=== PATIENT | male | born 1975 | race Caucasian/White ===

== ENCOUNTER → 2019-01-08 15:08 | Outpatient (CLI) | payer OTHER, SELFPAY ==
[2019-01-08 16:00] LABS: Basophils # 0.1 K/mm3 (0-0.2); Basophils % 0.7 % (0.1-2.0); Eosinophils # 0.2 K/mm3 (0.0-0.4); Eosinophils % 2.3 % (0.1-12.0); Hematocrit 46.1 % (42.0-52.0); Hemoglobin 16.5 g/dL (14.1-18.0); Lymphocytes # 2.7 K/mm3 (0.7-4.5); Lymphocytes % 30.6 % (10-50); Mean Corpuscular HGB Conc 35.8 g/dL (31.8-35.4); Mean Corpuscular Hemoglobin 30.5 pg (27.0-31.2); Mean Corpuscular Volume 85.2 fl (80-94); Mean Platelet Volume 8.6 fl (7.4-10.4); Monocytes # 0.5 K/mm3 (0.1-1.0); Monocytes % 5.1 % (1.7-9.3); Neutrophils # 5.4 K/mm3 (1.8-7.8); Neutrophils % 61.3 % (37.0-80.0); Platelet Count 221 K/mm3 (142-424); Red Blood Count 5.41 M/mm3 (4.60-6.20); Red Cell Distribution Width 12.5 % (11.5-17.5); White Blood Count 8.9 K/mm3 (4.8-10.8)
[2019-01-08 17:29] LABS: Alanine Aminotransferase 21 U/L (12-78); Albumin/Globulin Ratio 1.1 (1.1-1.8); Alkaline Phosphatase 100 U/L (46-116); Anion Gap 15.3 mEq/L (5-15); Aspartate Amino Transferase 15 U/L (15-37); Bilirubin,Total 0.4 mg/dL (0.2-1.0); Blood Urea Nitrogen 9 mg/dL (7-18); Carbon Dioxide 26 mmol/L (21.0-32.0); Chloride 103 mmol/L (98-107); Chol/HDL Ratio 4.9 (1-3.5); Cholesterol 151 mg/dL (140-200); Creatinine,Serum 0.64 mg/dL (0.70-1.30); Estimated Glomerular Filt Rate 137 ml/min (>60); Free T4 (Free Thyroxine) 1.07 ng/dl (0.76-1.46); GFR (African American) 166 ML/MIN (>60); Globulin 3.6 gm/dl (1.3-3.2); Glucose 129 mg/dL (74-106); HDL Cholesterol 31 mg/dL (27-67); LDL Cholesterol 102 mg/dL (0-130); Potassium 4.3 mmoL/L (3.5-5.1); Sodium 140 mmol/L (136-145); Thyroid Stimulating Hormone 1.64 uIU/ml (0.358-3.740); Total Protein,Serum 7.6 gm/dL (6.4-8.2); Triglycerides 90 mg/dL (30-200); VLDL Cholesterol 18 mg/dL (0-40)
[2019-01-08 17:41] LABS: Hemoglobin A1C 7.8 % (0.0-7.0)
== END ==
PROVIDERS: Visit Provider Emergency Medicine
DX: T58.91XA Toxic effect of carbon monoxide from unspecified source, accidental (unintentional), initial encounter (principal)
CPT/HCPCS: 80053; 80061; 83036; 84439; 84443; 85025

== ENCOUNTER 2022-11-29 22:18 | Emergency (ER) | payer MEDICAID, SELFPAY ==
[2022-11-29 22:26] VITALS: BP 159/102; PULSE 110; RESP 16; TEMP 36.9; O2SAT 97; BMI 30.9
[2022-11-29 22:30] VITALS: BP 156/91; PULSE 95; O2SAT 97
--- NOTE | 2022-11-29 22:32 | ECG_ITS ---
APPROVED REPORT Exam: Resting ECG HR:92 bpm ECG Measurements Heart Rate 92 AXES ME 128 P 70 QRSd 95 QRS 62 QT 346 T 72 QTc 396 Conclusion SINUS RHYTHM NORMAL ECG UNCONFIRMED REPORT Electronically signed by : Dusty Gómez MD 11/30/2022 20:29:30
--- NOTE | 2022-11-29 22:40 | XR_ITS ---
PROCEDURE INFORMATION: Exam: XR Chest Exam date and time: 11/29/2022 10:45 PM Age: 47 years old Clinical indication: Cough TECHNIQUE: Imaging protocol: Radiologic exam of the chest. Views: 2 views. Total images: 2 COMPARISON: No relevant prior studies available. FINDINGS: Lungs: Unremarkable. No consolidation. No pulmonary vascular congestion or edema. Pleural spaces: Unremarkable. No pleural effusion. No pneumothorax. Heart/Mediastinum: Unremarkable. No cardiomegaly. No mediastinal widening or hilar enlargement. Bones/joints: Unremarkable. IMPRESSION: No radiographically acute cardiopulmonary process.
--- NOTE | 2022-11-29 22:40 | HMH.EDURI ---
Discharge Plan Disposition Patient Disposition: Home, Self-Care Prescriptions Prescriptions: New metformin 500 mg tablet 500 mg PO BID Qty: 60 0RF Referrals Follow up/Referrals: Gail Stark PA [Primary Care Provider] - See instructions Clinical Impressions Clinical Impression: Diabetes mellitus, Tobacco use, Cough syncope Instructions Patient Instructions: DI for Diabetes Type 2 Discharge ED Provider: Jessica (ED)Ari URI/Sore Throat HPI General Chief Complaint: Upper Respiratory Infection Stated Complaint: cough, passing out last tuesday Time Seen by Provider: 11/29/22 22:40 Mode of Arrival: Ambulatory Source of Information: Patient Limitations: No Limitations Description of Symptoms (Recalled from ER Triage Doc. by RN): pt c/o a productive cough with white sputum >1year. pt states 11/26 he was coughing so hard he blacked out. pt denies SOA. History of Present Illness HPI Narrative: has episodes of cough and vomiting assoc with syncopal episodes - no chest pain - has hx of tob use and diabetes Onset (ago): week(s) Duration: intermittent Severity: moderate Able to tolerate fluids by mouth: Yes Associated symptoms: fever Treatments prior to arrival: none Related Data Previous Rx's Medication Instructions Recorded metformin 500 mg tablet 500 mg PO BID #60 tabs 11/29/22 Allergies Allergy/AdvReac Type Severity Reaction Status Date / Time bee pollen Allergy Verified 11/29/22 22:50 [facility] Disclaimer: The information contained in this section may have been updated after the patient was seen, as this information can be updated by other users. Social History Smoking Status: Current every day smoker tobacco type: cigarettes packs per day: 1 alcohol intake: never current occupational status: employed Travel in the last 8 weeks: None household members: none ROS Obtained: Yes All systems reviewed & no additional complaints except as documented Physical Exam General General appearance: alert Head Head exam: normocephalic Eye Eye exam: Present PERRL and EOMI ENT ENT exam: Present mucous membranes moist Neck Neck exam: Present trachea midline Respiratory Respiratory exam: Present normal lung sounds bilaterally; Absent respiratory distress Cardiovascular Cardiovascular exam: Present regular rate and systolic murmur Abdominal Exam Abdominal exam: Present soft Extremities Exam Extremities exam: Present full ROM Neurological Exam Neurological exam: Present alert, oriented X3 and CN II-XII intact; Absent motor sensory deficit Psychiatric Psychiatric exam: Present normal affect Skin Skin exam: Absent rash Medical Decision Making Medical Records Medical records reviewed: Yes I reviewed the patient's medical records. Maynor Inquiry Pt receiving controlled substance: No Vital Signs: 11/29/22 22:26 11/29/22 22:44 11/29/22 22:30 Temperature 98.5 F Temperature Source Oral Pulse Rate 95 H Pulse Rate [Left] 110 H Pulse Rate [Orthostatic Lying] 92 H Pulse Rate [Orthostatic Sitting] 95 H Pulse Rate [Orthostatic Standing] 109 H Respiratory Rate 16 Blood Pressure 156/91 H Blood Pressure [Orthostatic Lying] 146/81 H Blood Pressure [Orthostatic Sitting] 148/82 H Blood Pressure [Orthostatic Standing] 137/89 Blood Pressure [Right Arm] 159/102 H Blood Pressure Mean [Right Arm] 121 Blood Pressure Source [Right Arm] Automatic Cuff Blood Pressure Position [Right Arm] Sitting 02 Sat by Pulse Oximetry 97 97 Oxygen Delivery Method Room Air 11/29/22 23:00 11/29/22 23:48 11/29/22 23:48 Temperature 98.2 F Temperature Source Pulse Rate 93 H 85 Pulse Rate [Left] Pulse Rate [Orthostatic Lying] Pulse Rate [Orthostatic Sitting] Pulse Rate [Orthostatic Standing] Respiratory Rate 19 Blood Pressure 141/82 H 158/84 H Blood Pressure [Orthostatic Lying] Blood Pressure [Orthostatic Sitting] Blood Pressure [Orth
[2022-11-29 22:44] VITALS: BP 137/89; BP 146/81; BP 148/82; PULSE 109; PULSE 92; PULSE 95
[2022-11-29 22:45] LABS: Basophils # 0.2 K/mm3 (0-0.2); Basophils % 1.5 % (0.1-2.0); Eosinophils # 0.4 K/mm3 (0.0-0.4); Eosinophils % 3.7 % (0.1-12.0); Hematocrit 48.8 % (42.0-52.0); Hemoglobin 16.6 g/dL (14.1-18.0); Lymphocytes # 3.3 K/mm3 (0.7-4.5); Mean Corpuscular HGB Conc 34.1 g/dL (31.8-35.4); Mean Corpuscular Hemoglobin 30.3 pg (27.0-31.2); Mean Corpuscular Volume 88.9 fl (80-94); Mean Platelet Volume 9.1 fl (7.4-10.4); Monocytes # 0.5 K/mm3 (0.1-1.0); Monocytes % 4.3 % (1.7-9.3); Neutrophils # 7.1 K/mm3 (1.8-7.8); Neutrophils % 61.5 % (37.0-80.0); Platelet Count 230 K/mm3 (142-424); Red Blood Count 5.49 M/mm3 (4.60-6.20); White Blood Count 11.6 K/mm3 (4.8-10.8)
[2022-11-29 22:53] LABS: Alanine Aminotransferase 23 U/L (12-78); Albumin Level 4.1 g/dl (3.5-5.0); Albumin/Globulin Ratio 1.4 (1.1-1.8); Alkaline Phosphatase 145 U/L (38-126); Anion Gap 9.1 mEq/L (5-15); Aspartate Amino Transferase 26 U/L (17-59); Bilirubin,Total 0.3 mg/dl (0.2-1.3); Blood Urea Nitrogen 10 mg/dl (9-20); Calcium 8.9 mg/dl (8.4-10.2); Carbon Dioxide 25 mmol/L (22.0-30.0); Chloride 101 mmol/L (98-107); Creatinine Clearance Estimated 231 mL/min (50-200); Estimated Glomerular Filt Rate 145 ml/min (>60); GFR (African American) 176 ML/MIN (>60); Potassium 4.1 mmoL/L (3.5-5.1); Sodium 131 mmol/L (136-145); Total Protein,Serum 7.1 g/dl (6.3-8.2)
[2022-11-29 22:58] LABS: Glucose 472 mg/dl (74-100)
[2022-11-29 23:00] VITALS: BP 141/82; PULSE 93; O2SAT 96
[2022-11-29 23:08] LABS: Troponin I < 0.01 ng/ml (0.00-0.034)
[2022-11-29 23:30] VITALS: BP 155/86; PULSE 99; O2SAT 94
[2022-11-29 23:41] LABS: Chol/HDL Ratio 9.1 (1-3.5); Cholesterol 209 mg/dl (140-200); HDL Cholesterol 23 mg/dl (40-60)
[2022-11-29 23:47] LABS: Hemoglobin A1C 11.7 % (4.0-6.0)
[2022-11-29 23:48] VITALS: BP 158/84; PULSE 85; RESP 19; TEMP 36.8; O2SAT 99
[2022-11-29 23:52] LABS: Direct LDL Cholesterol 116.91 mg/dL (100-129)
[2022-11-29 23:54] LABS: Triglycerides 722 mg/dl (30-150)
[2022-11-30] LABS: T4 (Thyroxine) 11.5 ug/dl (5.53-11.0)
[2022-11-30 00:14] LABS: Thyroid Stimulating Hormone 2.19 uIU/mL (0.465-4.68)
== END 2022-11-30 00:01 | disposition home or self-care (01) ==
PROVIDERS: Emergency Provider Emergency Medicine; PCP Physician Assistant
DX: R55 Syncope and collapse (principal); R05.9 Cough, unspecified; E11.9 Type 2 diabetes mellitus without complications; F17.210 Nicotine dependence, cigarettes, uncomplicated
CPT/HCPCS: 71046; 80053; 80061; 83036; 84436; 84443; 84484; 85025; 93005; 96360; 99285

== ENCOUNTER → 2022-12-02 10:29 | Outpatient (CLI) | payer MEDICAID, SELFPAY ==
[2022-12-02 11:20] LABS: Creatinine,Urine Random 109 mg/dL (Not Estab.)
[2022-12-02 11:22] LABS: Microalbumin/Creatinine Ratio 37.7
[2022-12-02 12:24] LABS: Intact Parathyroid Hormone 49.1 pg/mL (7.5-53.5)
[2022-12-03 11:31] LABS: C-Peptide 2.7 ng/mL (1.1-4.4)
[2022-12-03 12:13] LABS: Insulin Level Total 10.9 uIU/mL (2.6-24.9)
[2022-12-20 01:51] LABS: Activated Protein C Resist 2.4
[2022-12-20 01:52] LABS: dRVVT 48.5; dRVVT Confirm 35.4
[2022-12-20 01:53] LABS: Anti-Cardiolipin Antibody IgG <10; Hexagonal Phase Phospholipid 4
[2022-12-20 01:54] LABS: Anti-Cardiolipin Antibody IgM <10
[2022-12-20 01:55] LABS: Beta-2 Glycoprotein I Ab, IgG <10; Beta-2 Glycoprotein I Ab, IgM <10
[2022-12-20 01:56] LABS: Beta-2 Glycoprotein I Ab, IgA <10
[2022-12-20 01:58] LABS: Homocyst(e)ine 8.7
[2022-12-20 01:59] LABS: Antithrombin Activity,Plasma 101; Factor VIII Activity 93; Protein C Activity 127
[2022-12-20 02:00] LABS: APTT 28.4; Protein S Antigen,Free 84
== END ==
PROVIDERS: PCP Physician Assistant; Visit Provider Physician Assistant
DX: E11.9 Type 2 diabetes mellitus without complications (principal); Z79.84 Long term (current) use of oral hypoglycemic drugs
CPT/HCPCS: 36415; 82043; 82570; 83090; 83525; 83970; 84681; 85240; 85300; 85302; 85306; 85598; 85613; 85730; 86146; 86147

== ENCOUNTER → 2022-12-14 12:38 | Outpatient (CLI) | payer MEDICAID, SELFPAY ==
[2022-12-14 14:17] VITALS: BMI 32.7
== END ==
PROVIDERS: PCP Physician Assistant; Visit Provider Physician Assistant
DX: Z71.3 Dietary counseling and surveillance (principal); E11.9 Type 2 diabetes mellitus without complications
CPT/HCPCS: 97802

== ENCOUNTER → 2023-01-13 12:00 | Outpatient (CLI) | payer MEDICAID, SELFPAY ==
[2023-01-13 13:22] LABS: MANUAL DIFFERENTIAL MANUAL DIFFERENTIAL (MANUAL DIFF)
[2023-01-13 14:59] LABS: Basophils # 0.1 K/mm3 (0-0.2); Basophils % 0.4 % (0.1-2.0); Eosinophils # 0.2 K/mm3 (0.0-0.4); Hematocrit 51.5 % (42.0-52.0); Hemoglobin 17.6 g/dL (14.1-18.0); Lymphocytes # 2.2 K/mm3 (0.7-4.5); Lymphocytes % 19.9 % (10-50); Mean Corpuscular HGB Conc 34.1 g/dL (31.8-35.4); Mean Corpuscular Hemoglobin 29.9 pg (27.0-31.2); Mean Corpuscular Volume 87.8 fl (80-94); Mean Platelet Volume 9.8 fl (7.4-10.4); Monocytes # 0.6 K/mm3 (0.1-1.0); Monocytes % 5.6 % (1.7-9.3); Neutrophils # 7.8 K/mm3 (1.8-7.8); Platelet Count 206 K/mm3 (142-424); Red Blood Count 5.87 M/mm3 (4.60-6.20); Red Cell Distribution Width 12.6 % (11.5-17.5); White Blood Count 10.8 K/mm3 (4.8-10.8)
[2023-01-13 15:18] LABS: Alanine Aminotransferase 22 U/L (12-78); Albumin Level 4.2 g/dl (3.5-5.0); Albumin/Globulin Ratio 1.5 (1.1-1.8); Alkaline Phosphatase 110 U/L (38-126); Anion Gap 12.9 mEq/L (5-15); Aspartate Amino Transferase 22 U/L (17-59); Bilirubin,Total 0.5 mg/dl (0.2-1.3); Blood Urea Nitrogen 9 mg/dl (9-20); Calcium 8.6 mg/dl (8.4-10.2); Carbon Dioxide 22 mmol/L (22.0-30.0); Chloride 99 mmol/L (98-107); Estimated Glomerular Filt Rate 179 ml/min (>60); GFR (African American) 217 ML/MIN (>60); Globulin 2.8 g/dL (1.3-3.2); Glucose 323 mg/dl (74-100); Potassium 3.9 mmoL/L (3.5-5.1); Sodium 130 mmol/L (136-145)
[2023-01-13 15:29] LABS: Intact Parathyroid Hormone 43.2 pg/mL (7.5-53.5)
[2023-01-13 15:47] LABS: Lymphocytes % 19 % (10-50); Monocytes % 4 % (2-9); Neutrophils % 77 % (42-76); Platelet Estimate Normal; RBC Morphology Normal; Total Cells Counted 100
[2023-01-15 13:21] LABS: Peripheral Smear Review Scanned Result
[2023-01-17 20:19] LABS: Albumin 3.8 g/dL (2.9-4.4); Alpha-1-Globulin 0.3 g/dL (0.0-0.4); Alpha-2-Globulin 0.9 g/dL (0.4-1.0); Gamma Globulin 0.9 g/dL (0.4-1.8); Protein, Total 7.1 g/dL (6.0-8.5)
[2023-01-17 20:20] LABS: Calcium, Ionized 4.7 mg/dL (4.5-5.6)
== END ==
PROVIDERS: PCP Physician Assistant; Visit Provider Physician Assistant
DX: M89.8X9 Other specified disorders of bone, unspecified site (principal); R74.8 Abnormal levels of other serum enzymes
CPT/HCPCS: 80053; 82330; 83970; 84155; 84165; 85007; 85014; 85018; 85048; 85049

== ENCOUNTER → 2023-01-20 11:44 | Outpatient (CLI) | payer MEDICAID, SELFPAY ==
--- NOTE | 2023-01-20 11:49 | XR_ITS ---
FINAL REPORT CLINICAL HISTORY: bone pain FINDINGS: Right femur Two views were obtained. There is no acute fracture or dislocation. The joint spaces appear normal. No soft tissue abnormality is identified. IMPRESSION: No acute process. Reviewed, Interpreted and Dictated by Landon Marcos III, MD Transcribed by Camilla Donato Authenticated and [facility]
--- NOTE | 2023-01-20 11:49 | XR_ITS ---
FINAL REPORT CLINICAL HISTORY: bone pain FINDINGS: LUMBAR SPINE Five views demonstrate no acute fracture. There are mild degenerative changes with osteophytes. There is no malalignment. IMPRESSION: Mild degenerative changes. Reviewed, Interpreted and Dictated by Landon Marcos III, MD Transcribed by Camilla Donato Authenticated and [facility]
--- NOTE | 2023-01-20 11:49 | XR_ITS ---
FINAL REPORT CLINICAL HISTORY: bone pain FINDINGS: Left femur Two views were obtained. There is no acute fracture or dislocation. There are mild degenerative changes of the knee. No soft tissue abnormality is identified. IMPRESSION: Mild degenerative changes of the left knee. Reviewed, Interpreted and Dictated by Landon Marcos III, MD Transcribed by Camilla Donato Authenticated and [facility]
== END ==
PROVIDERS: PCP Physician Assistant; Visit Provider Physician Assistant
DX: M89.8X9 Other specified disorders of bone, unspecified site (principal); R74.8 Abnormal levels of other serum enzymes
CPT/HCPCS: 72110; 73552

== ENCOUNTER → 2023-03-17 12:20 | Outpatient (CLI) | payer MEDICAID, SELFPAY ==
[2023-03-17 12:31] LABS: Basophils # 0.1 K/mm3 (0-0.2); Basophils % 0.7 % (0.1-2.0); Eosinophils # 0.3 K/mm3 (0.0-0.4); Eosinophils % 2.8 % (0.1-12.0); Hematocrit 50.8 % (42.0-52.0); Hemoglobin 16.5 g/dL (14.1-18.0); Lymphocytes # 3.8 K/mm3 (0.7-4.5); Mean Corpuscular HGB Conc 32.5 g/dL (31.8-35.4); Mean Corpuscular Hemoglobin 28.7 pg (27.0-31.2); Mean Corpuscular Volume 88.4 fl (80-94); Monocytes # 0.6 K/mm3 (0.1-1.0); Monocytes % 4.6 % (1.7-9.3); Neutrophils # 7.5 K/mm3 (1.8-7.8); Neutrophils % 60.9 % (37.0-80.0); Platelet Count 230 K/mm3 (142-424); Red Blood Count 5.75 M/mm3 (4.60-6.20); Red Cell Distribution Width 12.9 % (11.5-17.5); White Blood Count 12.3 K/mm3 (4.8-10.8)
[2023-03-17 13:05] LABS: Alanine Aminotransferase 27 U/L (12-78); Albumin Level 4.3 g/dl (3.5-5.0); Albumin/Globulin Ratio 1.5 (1.1-1.8); Alkaline Phosphatase 126 U/L (38-126); Aspartate Amino Transferase 24 U/L (17-59); Bilirubin,Total 0.3 mg/dl (0.2-1.3); Blood Urea Nitrogen 14 mg/dl (9-20); Calcium 9.2 mg/dl (8.4-10.2); Carbon Dioxide 30 mmol/L (22.0-30.0); Chloride 95 mmol/L (98-107); Chol/HDL Ratio 5.4 (1-3.5); Cholesterol 185 mg/dl (140-200); Estimated Glomerular Filt Rate 178 ml/min (>60); GFR (African American) 216 ML/MIN (>60); Globulin 2.9 g/dL (1.3-3.2); Glucose 253 mg/dl (74-100); HDL Cholesterol 34 mg/dl (40-60); Sodium 138 mmol/L (136-145); Total Protein,Serum 7.2 g/dl (6.3-8.2); Triglycerides 197 mg/dl (30-150); VLDL Cholesterol 39 mg/dL (0-40)
[2023-03-17 13:16] LABS: Direct LDL Cholesterol 113.51 mg/dL (100-129)
[2023-03-17 14:14] LABS: Hemoglobin A1C 9.8 % (4.0-6.0)
== END ==
PROVIDERS: PCP Physician Assistant; Visit Provider Physician Assistant
DX: R10.9 Unspecified abdominal pain (principal); E11.9 Type 2 diabetes mellitus without complications; Z79.84 Long term (current) use of oral hypoglycemic drugs
CPT/HCPCS: 80053; 80061; 83036; 85025; 87086

== ENCOUNTER 2023-03-20 23:07 | Observation (INO) | payer MEDICAID, SELFPAY ==
[2023-03-20 23:08] VITALS: BP 147/97; PULSE 106; RESP 16; TEMP 36.2; O2SAT 96; BMI 29.8
--- NOTE | 2023-03-20 23:12 | ECG_ITS ---
APPROVED REPORT Exam: Resting ECG HR:102 bpm ECG Measurements Heart Rate 102 AXES AZ 155 P 69 QRSd 90 QRS 73 QT 332 T 53 QTc 390 Conclusion SINUS TACHYCARDIA ABNORMAL RHYTHM ECG UNCONFIRMED REPORT Electronically signed by : Dusty Gómez MD 03/21/2023 07:47:21
--- NOTE | 2023-03-20 23:13 | CT_ITS ---
PROCEDURE INFORMATION: Exam: CTA Chest With Contrast Exam date and time: 03/21/2023 12:29 AM Age: 48 years old Clinical indication: Pain; Chest pressure; Additional info: Cp TECHNIQUE: Imaging protocol: Computed tomographic angiography of the chest with contrast. Exam focused on the arteries. 3D rendering (Not supervised by radiologist): MIP and/or 3D reconstructed images were created by the technologist. Radiation optimization: All CT scans at this facility use at least one of these dose optimization techniques: automated exposure control; mA and/or kV adjustment per patient size (includes targeted exams where dose is matched to clinical indication); or iterative reconstruction. Contrast material: ISOVUE; Contrast volume: 70 ml; Contrast route: INTRAVENOUS (IV); REPORTING DATA: Count of CT and Cardiac NM exams in prior 12 months: This patient has received 0 known CTs and 0 known cardiac nuclear medicine studies in the 12 months prior to the current study. COMPARISON: CR Chest 21/03/2023 00:14 FINDINGS: Pulmonary arteries: No pulmonary emboli. Aorta: The aorta demonstrates mild atherosclerotic disease. Lungs: Mild centrilobular and paraseptal emphysema. Pleural spaces: Unremarkable. No pneumothorax. No pleural effusion. Heart: Unremarkable. No cardiomegaly. No pericardial effusion. Lymph nodes: There is a right hilar lymph node measuring 14 mm in short axis on image 66 series 5. This could be reactive. Gallbladder and bile ducts: Cholelithiasis. Bones/joints: Unremarkable. No acute fracture. Soft tissues: Unremarkable. Other findings: Stigmata of old granulomatous disease. IMPRESSION: 1. No pulmonary emboli. 2. Cholelithiasis.
[2023-03-20] MEDS: FAMOTIDINE 20MG/2ML VIAL 20 MG IV (23:17)
[2023-03-20] MEDS: 0.9 % SODIUM CHLORIDE 1000ML 1,000 ML 999 ML IV (23:17)
[2023-03-20] MEDS: METOCLOPRAMIDE HCL 10MG/2ML VIAL 10 MG IVP (23:24)
--- NOTE | 2023-03-20 23:30 | ED_ITS ---
Discharge Plan Disposition Patient Disposition: Admitted Chief Complaint: Chest Pain Clinical Impressions Clinical Impression: Angina pectoris, unstable, Cholelithiasis, Diabetes type 2, uncontrolled Discharge ED Provider: Jessica (ED)Ari Chest Pain HPI General Chief Complaint: Chest Pain Stated Complaint: Chest Pain Time Seen by Provider: 03/20/23 23:15 Mode of Arrival: Family Vehicle Source of Information: Patient, Spouse and Medical Record Limitations: No Limitations Description of Symptoms (Recalled from ER Triage Doc. by RN): 48 yo male presents with CC chest pain for several days. States he was seen at his local doctor's office by SHARONDA Andino and was advised to be seen in ED but because he dips he thought it might just be tobacco related. Patient states it causes additional pain/discomfort when he lays down and causes his left arm to go 'go numb'. History of Present Illness HPI narrative: over the last 2 weeks has had episodes of chest pain - has diabetes and uses tob - has rad to lt upper ext MD complaint: chest pain indicative of cardiac Onset (ago): day(s) Duration: intermittent Activity at onset: during rest Pain location: left chest Severity: moderate Pain radiation: LUE Risk Factors for CAD: Family Hx of CAD, Diabetes and Smoking Treatments prior to or on arrival for Cardiac Chest Pain: none ONI Score for Non-Stemi Age of Patient: 40-49 years old Heart Rate: 70-89 bpm Systolic Blood Pressure: 120-139 mmhg Serum Creatinine: 0.40-0.79 mg/dl CHF [place] Class: I-No CHF Other Risk Factors: None Non-Stemi Risk Score: 72 Risk Stratification: 1-108 = Low Risk Related Data Home Medications Medication Instructions Recorded Confirmed metformin 500 mg tablet,extended 1,000 mg PO DAILY Diabetes 01/13/23 03/21/23 release 24 hr aspirin 81 mg tablet,delayed 81 mg PO DAILY antiplatelet 03/21/23 03/21/23 release atorvastatin 10 mg tablet (Lipitor) 10 mg PO QHS choelsterol 03/21/23 03/21/23 blood sugar diagnostic (Blood 03/21/23 03/21/23 Glucose Test strips) blood sugar diagnostic (ReliOn 03/21/23 03/21/23 Prime Test Strips) blood-glucose meter (Blood Glucose 03/21/23 03/21/23 Monitoring kit) dapagliflozin propanediol 10 mg 10 mg PO DAILY Diabetes 03/21/23 03/21/23 tablet (Farxiga) glipizide 10 mg tablet, extended 10 mg PO DAILY Diabetes 03/21/23 03/21/23 release 24 hr lisinopril 2.5 mg tablet 2.5 mg PO DAILY htn 03/21/23 03/21/23 sitagliptin phosphate 100 mg 100 mg PO DAILY Diabetes 03/21/23 03/21/23 tablet (Januvia) Allergies Allergy/AdvReac Type Severity Reaction Status Date / Time bee pollen Allergy Verified 03/17/23 11:08 [facility] Disclaimer: The information contained in this section may have been updated after the sharonda scales was seen, as this information can be updated by other users. Medical History Carbon monoxide poisoning Surgical History Hx of drainage of abscess Social History Smoking Status: Current every day smoker tobacco type: cigarettes packs per day: 1 alcohol intake: never current occupational status: employed Travel in the last 8 weeks: None household members: none ROS Obtained: Yes All systems reviewed & no additional complaints except as documented Physical Exam General General appearance: alert Head Head exam: normocephalic Eye Eye exam: Present PERRL and EOMI ENT ENT exam: Present mucous membranes moist Neck Neck exam: Present trachea midline Respiratory Respiratory exam: Absent respiratory distress Cardiovascular Cardiovascular exam: Present regular rate and systolic murmur Abdominal Exam Abdominal exam: Present soft Extremities Exam Extremities exam: Present full ROM Neurological Exam Neurological exam: Present alert, oriented X3 and CN II-XII intact; Absent motor sensory deficit Psychiatric Psychiatric exam: Present normal affect Skin Skin exam: Absent rash Medical Decision Making Medical Records Medical records reviewed: Yes I reviewed the patient's medical records. Maynor Inquiry Pt receiving controlled substance: No Vital Signs: 03/20/23 23:08 03/20/23 23:45 03/21/23 00:00 Temperature 97.2 F L 98 F Temperature Source Oral Pulse Rate 99 H 101 H Pulse Rate [Right Brachial] 106 H Respiratory Rate 16 18 16 Blood Pressure 132/85 115/71 Blood Pressure [Right Arm] 147/97 H Blood Pressure Mean [Right Arm] 113 Blood Pressure Source [Right Arm] Automatic Cuff Blood Pressure Position [Right Arm] Sitting 02 Sat by Pulse Oximetry 96 92 L Oxygen Delivery Method Room Air Room Air 03/21/23 00:39 03/21/23 01:00 03/21/23 01:11 Temperature 98.4 F Temperature Source Pulse Rate 88 90 80 Pulse Rate [Right Brachial] Respiratory Rate 17 12 13 Blood Pressure 121/70 124/76 124/76 Blood Pressure [Right Arm] Blood Pressure Mean [Right Arm] Blood Pressure Source [Right Arm] Blood Pressure Position [Right Arm] 02 Sat by Pulse Oximetry 98 96 Oxygen Delivery Method Room Air Room Air 03/21/23 01:30 Temperature Temperature Source Pulse Rate 86 Pulse Rate [Right Brachial] Respiratory Rate 18 Blood Pressure 114/74 Blood Pressure [Right Arm] Blood Pressure Mean [Right Arm] Blood Pressure Source [Right Arm] Blood Pressure Position [Right Arm] 02 Sat by Pulse Oximetry 99 Oxygen Delivery Method Room Air Lab Data Lab results reviewed: Yes I reviewed the patient's lab results. Lab Results 03/20/23 23:22: WBC 14.0 H, RBC 5.44, Hgb 16.0, Hct 46.1, MCV 84.6, MCH 29.4, MCHC 34.7, RDW 12.9, Plt Count 223, MPV 9.3, Neut % (Auto) 62.4, Lymph % (Auto) 29.2, [place] % (Auto) 5.0, Eos % (Auto) 2.9, Baso % (Auto) 0.5, Neut # (Auto) 8.7 H, Lymph # (Auto) 4.1, [place] # (Auto) 0.7, Eos # (Auto) 0.4, Baso # (Auto) 0.1 03/20/23 23:22: Sodium 133 L, Potassium 4.3, Chloride 95 L, Carbon Dioxide 27, Anion Gap 15.3 H, BUN 14, Creatinine 0.60 L, Estimated Creat Clear 239, Estimated GFR 144, Est GFR ( Amer) 175, Glucose 217 H, Calcium 9.1, Total Bilirubin 0.4, AST 37, ALT 37, Alkaline Phosphatase 110, Troponin I < 0.01, C- Reactive Protein 3.9, NT-Pro-B Natriuret Pep < 20.0, Total Protein 7.9, Albumin 4.5, Globulin 3.4 H, Albumin/Globulin Ratio 1.3, TSH 3.54, Thyroxine (T4) 13.1 H 03/20/23 23:22: Hemoglobin A1c 9.6 H 03/20/23 23:22: ESR 12 03/20/23 23:22: Lipase 116 03/21/23 00:00: PT 10.9, INR 1.01 03/21/23 01:07: SARS-CoV-2 (PCR) Not detected, Influenza A Untype (PCR) Not detected, Influenza Type B (PCR) Not detected 03/21/23 01:17: Urine Color Yellow, Urine Appearance Clear, Urine pH 5.5, Ur Specific [place] <= 1.005, Urine Protein Negative, Urine Glucose (UA) 3+, Urine Ketones Negative, Urine Blood Negative, Urine Nitrate Negative, Urine Bilirubin Negative, Urine Urobilinogen 0.2, Ur Leukocyte Esterase Negative, Urine RBC None, Urine WBC Occasional, Ur Squamous Epith Cells Occasional, Urine Bacteria None Result diagrams: 03/20/23 23:22 03/20/23 23:22 Orders (Tests/Meds): ED MEDICATIONS Generic Name Dose Route Start Last Admin Trade Name Freq PRN Reason Stop Dose Admin Aspirin 81 mg 03/21/23 09:00 Aspirin 81mg Chewable Tablet PO 04/20/23 08:59 DAILY [facility] Atorvastatin Calcium 10 mg 03/21/23 21:00 Atorvastatin 10mg Tablet PO 04/20/23 20:59 HS [facility] Enoxaparin Sodium 40 mg 03/21/23 09:00 Enoxaparin 40mg/0.4ml Syringe SQ 04/20/23 08:59 DAILY [facility] Metoprolol Tartrate 25 mg 03/21/23 01:18 03/21/23 01:21 Metoprolol Tartrate 50mg Tablet PO 03/21/23 01:19 25 mg ONCE ONE Administration Nicotine 21 mg 03/21/23 01:07 Nicotine 21mg/24hr Patch TD 04/20/23 01:06 DAILYP PRN Nicotine Cravings Nitroglycerin 0.4 mg 03/20/23 23:43 03/20/23 23:50 Nitroglycerin 0.4mg Sl Tablet SL 04/19/23 23:42 0.4 mg Q5MINP PRN Administration Chest Pain Sodium Chloride 8 ml 03/20/23 23:13 Sodium Chloride 0.9% 10ml Vial IV 04/19/23 23:12 NEEDED PRN dilute pepcid Discontinued Medications Generic Name Dose Route Start Last Admin Trade Name Ethel PRN Reason Stop Dose Admin Aspirin 324 mg 03/20/23 23:43 03/20/23 23:47 Aspirin 81mg Chewable Tablet PO 03/20/23 23:44 324 mg ONCE ONE Administration Enoxaparin Sodium 100 mg 03/21/23 00:57 03/21/23 01:01 Enoxaparin 100mg/Ml Syringe SQ 03/21/23 00:58 100 mg ONCE ONE Administration Famotidine 20 mg 03/20/23 23:13 03/20/23 23:17 Famotidine 20mg/2ml Vial IV 03/20/23 23:14 20 mg ONCE ONE Administration Sodium Chloride 1,000 mls @ 999 mls/hr 03/20/23 23:15 03/20/23 23:17 Sod Chlor 0.9% 1000ml Bag IV 03/21/23 00:15 999 mls/hr .Q1H1M THOMAS Administration Iopamidol 70 ml 03/21/23 01:12 03/21/23 01:13 Iopamidol-370 (76%);100ml Bottle IV 03/21/23 01:13 70 ml ONCE ONE Administration Metoclopramide HCl 10 mg 03/20/23 23:13 03/20/23 23:24 Metoclopramide Hcl 10mg/2ml Vial IVP 03/20/23 23:14 10 mg ONCE ONE Administration Nitroglycerin 1 gm 03/20/23 23:43 03/21/23 00:10 Nitroglycerin 1 Gm Ointment TD 03/20/23 23:44 1 gm ONCE ONE Administration Sodium Chloride 10 ml 03/21/23 01:12 03/21/23 01:13 Sodium Chloride 0.9% 10ml Syr (Rad Only) IV 03/21/23 01:13 10 ml ONCE ONE Administration Ticagrelor 180 mg 03/21/23 00:57 03/21/23 01:02 Ticagrelor 90mg Tablet PO 03/21/23 00:58 180 mg ONCE ONE Administration ORDERS Category Date Time Status CTA Chest [CT angio chest PE protocol] Stat Cat Scan 03/20/23 23:13 Completed Cardiology Consult [Consult to Cardiology] [CONS] Cons 03/21/23 01:10 Active Routine XR chest 2V Stat Exams 03/21/23 00:21 Completed Antiphosphatidylserine IgG/M/A Routine Lab 03/20/23 00:00 Received Antithrombin III, Func/Immunol Routine Lab 03/20/23 00:00 Received Brain Natriuretic Peptide Stat Lab 03/20/23 23:22 Completed C-Reactive Protein Stat Lab 03/20/23 23:22 Completed Complete Blood Count Auto Diff AMLAB Lab 03/21/23 06:00 Ordered Complete Blood Count Auto Diff Stat Lab 03/20/23 23:22 Completed Comprehensive Metabolic Panel AMLAB Lab 03/21/23 06:00 Ordered Comprehensive Metabolic Panel Stat Lab 03/20/23 23:22 Completed Erythrocyte Sedimentation Rate Stat Lab 03/20/23 23:22 Completed Factor V Leiden Mutation Routine Lab 03/20/23 00:00 Received Factor VIII Activity Routine Lab 03/20/23 00:00 Received Hemoglobin A1C Stat Lab 03/20/23 23:22 Completed Homocyst(e)ine Routine Lab 03/20/23 00:00 Received Lipase Stat Lab 03/20/23 23:22 Completed Lipid Panel AMLAB Lab 03/21/23 06:00 Ordered Protein C Antigen Routine Lab 03/20/23 00:00 Received Protein C Functional Routine Lab 03/20/23 00:00 Received Protein S Panel Routine Lab 03/20/23 00:00 Received Prothrombin Time INR Routine Lab 03/20/23 00:00 Completed Rapid PCR Covid and Flu A/B Stat Lab 03/21/23 01:07 Completed T4 (Thyroxine) Stat Lab 03/20/23 23:22 Completed Thyroid Stimulating Hormone Stat Lab 03/20/23 23:22 Completed Troponin I Q3H Lab 03/21/23 02:15 Ordered Troponin I Q3H Lab 03/21/23 05:15 Ordered Troponin I Stat Lab 03/20/23 23:22 Completed UA [Urinalysis and Microscopic] Stat Lab 03/21/23 01:17 Completed Radiology Data #1: Image(s): Chest Image Reviewed: Yes I have reviewed radiologist's interpretation Preliminary Findings: Normal/NAD CT Data CT Scan: Chest Time Received: 02:[address] Reviewed: Yes I have viewed the radiologist's interpretation Preliminary Findings: Normal/NAD US Data ED US Reviewed: Yes I have viewed radiologist's interpretation ECG Data Tracing #1: Normal Sinus Rhythm: Yes Ischemic changes: non-specific ST-T wave changes Physician Consults Physician Consulted: alta Reason -: Pt condition Additional Consult: [facility] Reason -: Admission ONI Score for Non-Stemi Age of Patient: 40-49 years old Heart Rate: 70-89 bpm Systolic Blood Pressure: 120-139 mmhg Serum Creatinine: 0.40-0.79 mg/dl CHF [place] Class: I-No CHF Other Risk Factors: None Non-Stemi Risk Score: 72 Risk Stratification: 1-108 = Low Risk Medical Decision Narrative: pt with chest pain relieved with ntg with risk factors and will be admitted for eval
[2023-03-20 23:45] VITALS: BP 132/85; PULSE 99; RESP 18; TEMP 36.6
[2023-03-20] MEDS: NITROGLYCERIN 0.4MG SL TABLET 0.400000000000000022 MG SL ×2 (23:45→23:50)
[2023-03-20] MEDS: ASPIRIN 81MG CHEWABLE TABLET 324 MG PO (23:47)
[2023-03-20 23:52] LABS: Alanine Aminotransferase 37 U/L (12-78); Albumin Level 4.5 g/dl (3.5-5.0); Albumin/Globulin Ratio 1.3 (1.1-1.8); Alkaline Phosphatase 110 U/L (38-126); Anion Gap 15.3 mEq/L (5-15); Aspartate Amino Transferase 37 U/L (17-59); Bilirubin,Total 0.4 mg/dl (0.2-1.3); Blood Urea Nitrogen 14 mg/dl (9-20); Calcium 9.1 mg/dl (8.4-10.2); Carbon Dioxide 27 mmol/L (22.0-30.0); Chloride 95 mmol/L (98-107); Creatinine Clearance Estimated 239 mL/min (50-200); Estimated Glomerular Filt Rate 144 ml/min (>60); GFR (African American) 175 ML/MIN (>60); Globulin 3.4 g/dL (1.3-3.2); Glucose 217 mg/dl (74-100); Lipase 116 U/L (23-300); Potassium 4.3 mmoL/L (3.5-5.1); Sodium 133 mmol/L (136-145); Total Protein,Serum 7.9 g/dl (6.3-8.2)
[2023-03-20 23:57] LABS: C-Reactive Protein 3.9 mg/L (0-4)
[2023-03-21] VITALS (21 sets, daily range): BP systolic 100–124; BP diastolic 55–76; PULSE 69–101; RESP 12–21; TEMP 36.4–37.2; O2SAT 92–100; BMI 29.6
[2023-03-21 00:06] LABS: NT Pro Brain Natriuretic Pep. < 20.0 pg/mL (0-125)
[2023-03-21 00:07] LABS: Troponin I < 0.01 ng/ml (0.00-0.034)
[2023-03-21] MEDS: NITROGLYCERIN 1 GM OINTMENT TD (00:10)
[2023-03-21 00:11] LABS: T4 (Thyroxine) 13.1 ug/dl (5.53-11.0)
[2023-03-21 00:12] LABS: Basophils # 0.1 K/mm3 (0-0.2); Basophils % 0.5 % (0.1-2.0); Eosinophils # 0.4 K/mm3 (0.0-0.4); Eosinophils % 2.9 % (0.1-12.0); Hematocrit 46.1 % (42.0-52.0); Lymphocytes # 4.1 K/mm3 (0.7-4.5); Lymphocytes % 29.2 % (10-50); Mean Corpuscular HGB Conc 34.7 g/dL (31.8-35.4); Mean Corpuscular Hemoglobin 29.4 pg (27.0-31.2); Mean Corpuscular Volume 84.6 fl (80-94); Mean Platelet Volume 9.3 fl (7.4-10.4); Monocytes # 0.7 K/mm3 (0.1-1.0); Neutrophils # 8.7 K/mm3 (1.8-7.8); Neutrophils % 62.4 % (37.0-80.0); Platelet Count 223 K/mm3 (142-424); Red Blood Count 5.44 M/mm3 (4.60-6.20); Red Cell Distribution Width 12.9 % (11.5-17.5)
--- NOTE | 2023-03-21 00:21 | XR_ITS ---
PROCEDURE INFORMATION: Exam: XR Chest Exam date and time: 03/21/2023 12:14 AM Age: 48 years old Clinical indication: Pain; Chest pressure; Additional info: Chest pain TECHNIQUE: Imaging protocol: Radiologic exam of the chest. Views: 2 views. COMPARISON: 1. CR XR CHEST 2V 29/11/2022 22:[address] ANGIO CHEST PE PROTOCOL 03/21/2023 12:29 AM FINDINGS: Lungs: Unremarkable. No consolidation. Pleural spaces: Unremarkable. No pleural effusion. No pneumothorax. Heart/Mediastinum: Unremarkable. No cardiomegaly. Bones/joints: Unremarkable. IMPRESSION: No acute findings.
[2023-03-21 00:25] LABS: Thyroid Stimulating Hormone 3.54 uIU/mL (0.465-4.68)
--- NOTE | 2023-03-21 00:38 | PC.NURSE ---
Pt returned from RAD via wheelchair
[2023-03-21 00:42] LABS: INR 1.01 (0.9-1.1); Prothrombin Time 10.9 seconds (10.1-12.5)
[2023-03-21 00:50] LABS: Erythrocyte Sedimentation Rate 12 mm/hr (0-15)
--- NOTE | 2023-03-21 00:59 | PC.NURSE ---
Dr. Lopez at to update pt/family of results
[2023-03-21] MEDS: ENOXAPARIN 100MG/ML SYRINGE 100 MG SQ (01:01)
[2023-03-21] MEDS: TICAGRELOR 90MG TABLET 180 MG PO (01:02)
[2023-03-21 01:05] LABS: Hemoglobin A1C 9.6 % (4.0-6.0)
[2023-03-21 01:11] LABS: Coronavirus 19, PCR Not Detected (NotDetected); Influenza A, PCR Not Detected (NotDetected); Influenza B, PCR Not Detected (NotDetected)
[2023-03-21] MEDS: SODIUM CHLORIDE 0.9% 10ML SYR (RAD ONLY) 10 ML IV (01:13)
[2023-03-21] MEDS: IOPAMIDOL-370 (76%);100ML BOTTLE 70 ML IV (01:13)
--- NOTE | 2023-03-21 01:20 | PC.NURSE ---
Pt ambulatory to bathroom. No other needs voiced at this time.
[2023-03-21] MEDS: METOPROLOL TARTRATE 50MG TABLET 25 MG PO (01:21)
[2023-03-21 01:23] LABS: Microscopic, Urine URINE MICROSCOPIC (MICROSCOPIC)
[2023-03-21 01:24] LABS: Appearance,Urine CLEAR (Clear); Bilirubin,Urine Negative (Negative); Blood, Urine Negative (Negative); Color,Urine YELLOW (Yellow); Glucose,Urine (UA) 3+ (Negative); Ketones,Urine Negative (Negative); Leukocyte Esterase,Urine Negative (Negative); Nitrate,Urine Negative (Negative); PH,Urine 5.5 (5.0-8.5); Protein,Urine Negative (Negative); Specific Gravity, Urine <= 1.005 (1.005-1.030); Urobilinogen,Urine 0.2 EU/dl (0.2)
--- NOTE | 2023-03-21 01:39 | P.HP_ITS ---
History of Present Illness *Admission Date: 03/21/23 *Reason for visit:: Chest pain *History of present illness: This is a 48 yo male presents with PMHx of uncontrolled non insuline dependant diabetes, Hypertension, HLD, heavy tobacco user, that presented to ER c/o chest pain for several days. Stated his PCP advised to visit ER if pain does not improve. pain has been on and off. Patient stated this morning causes additional pain/discomfort when he lays down and causes his left arm to go 'go numb'. Patient also c/o not tolerating lying down due to SOB. He currently denied Chest pain or SOB. initial ER evaluation included negative troponin, EKG suggested unspecific changes. CTA was done. Negative for PE. CXR neg. Labs was obatained and showed mild hyponatremia. Patient will be admitted for further management and work up. [facility] Disclaimer: The information contained in this section may have been updated after the patient was seen, as this information can be updated by other users. Medical History Carbon monoxide poisoning Surgical History Hx of drainage of abscess Social History (Updated 03/21/23 @ 02:42 by Candace Niño RN) Smoking Status: Current every day smoker tobacco type: cigarettes packs per day: 1 alcohol intake: never current occupational status: employed Travel in the last 8 weeks: None household members: none Review of Systems Review of Systems Review of systems:: pertinent systems reviewed and negative unless documented below *Cardiovascular Cardiovascular: Reports as per [facility] Meds Home Medications and Allergies Home Medications Medication Instructions Recorded Confirmed Type metformin 500 mg tablet,extended 1,000 mg PO DAILY Diabetes 01/13/23 03/21/23 History release 24 hr aspirin 81 mg tablet,delayed 81 mg PO DAILY HEART HEALTH 03/21/23 03/21/23 History release atorvastatin 10 mg tablet (Lipitor) 10 mg PO HS Cholesterol 03/21/23 03/21/23 History blood sugar diagnostic (Blood 03/21/23 03/21/23 History Glucose Test strips) blood sugar diagnostic (ReliOn 03/21/23 03/21/23 History Prime Test Strips) blood-glucose meter (Blood Glucose 03/21/23 03/21/23 History Monitoring kit) dapagliflozin propanediol 10 mg 10 mg PO DAILY Diabetes 03/21/23 03/21/23 History tablet (Farxiga) glipizide 10 mg tablet, extended 10 mg PO DAILY Diabetes 03/21/23 03/21/23 History release 24 hr lisinopril 2.5 mg tablet 2.5 mg PO DAILY Hypertension 03/21/23 03/21/23 History sitagliptin phosphate 100 mg 100 mg PO DAILY Diabetes 03/21/23 03/21/23 History tablet (Januvia) New Prescriptions to Start Prescriptions: Allergies Allergy/AdvReac Type Severity Reaction Status Date / Time bee pollen Allergy Verified 03/17/23 11:08 Exam Data for Last 24 hours Vital signs and Labs for Last 24 Hours: Temp Pulse Resp BP Pulse Ox 98.4 F 80 13 124/76 96 03/21/23 01:11 03/21/23 01:11 03/21/23 01:11 03/21/23 01:11 03/21/23 01:00 Laboratory Results - last 24 hr 03/20/23 23:22: WBC 14.0 H, RBC 5.44, Hgb 16.0, Hct 46.1, MCV 84.6, MCH 29.4, MCHC 34.7, RDW 12.9, Plt Count 223, MPV 9.3, Neut % (Auto) 62.4, Lymph % (Auto) 29.2, [place] % (Auto) 5.0, Eos % (Auto) 2.9, Baso % (Auto) 0.5, Neut # (Auto) 8.7 H, Lymph # (Auto) 4.1, [place] # (Auto) 0.7, Eos # (Auto) 0.4, Baso # (Auto) 0.1 03/20/23 23:22: Sodium 133 L, Potassium 4.3, Chloride 95 L, Carbon Dioxide 27, Anion Gap 15.3 H, BUN 14, Creatinine 0.60 L, Estimated Creat Clear 239, Estimated GFR 144, Est GFR ( Amer) 175, Glucose 217 H, Calcium 9.1, Total Bilirubin 0.4, AST 37, ALT 37, Alkaline Phosphatase 110, Troponin I < 0.01, C- Reactive Protein 3.9, NT-Pro-B Natriuret Pep < 20.0, Total Protein 7.9, Albumin 4.5, Globulin 3.4 H, Albumin/Globulin Ratio 1.3, TSH 3.54, Thyroxine (T4) 13.1 H 03/20/23 23:22: Hemoglobin A1c 9.6 H 03/20/23 23:22: ESR 12 03/20/23 23:22: Lipase 116 03/21/23 00:00: PT 10.9, INR 1.01 03/21/23 01:07: SARS-CoV-2 (PCR) Not detected, Influenza A Untype (PCR) Not detected, Influenza Type B (PCR) Not detected 03/21/23 01:17: Urine Color Yellow, Urine Appearance Clear, Urine pH 5.5, Ur Specific [place] <= 1.005, Urine Protein Negative, Urine Glucose (UA) 3+, Urine Ketones Negative, Urine Blood Negative, Urine Nitrate Negative, Urine Bilirubin Negative, Urine Urobilinogen 0.2, Ur Leukocyte Esterase Negative I & O for Last 24 hours: Intake & Output 03/18/23 03/19/23 03/20/23 03/21/23 23:59 23:59 23:59 23:59 Intake Total 1000 / 1000 Balance 1000 / 1000 Weight 111.13 kg Constitutional Constitutional: no acute distress, obese and cooperative *Routine HEENT Exam Head: Present normocephalic and atraumatic Eye: Present EOMI, PERRL and normal accommodation ENT: Present mucous membranes moist *Routine Neck Exam Neck: Present supple, full ROM and trachea midline *Routine Respiratory Exam Respiratory: Present normal respiratory effort, able to speak in complete sentences and symmetric chest movement *Routine Cardiovascular Exam Cardiovascular: Present Normal S1 and Normal S2 *Routine Abdominal Exam Abdominal: Present soft, normoactive bowel sounds, distended and obese *Routine Rectal Exam Rectal:: deferred *Routine Genitalia Exam Genitalia:: deferred *Routine Extremities Exam Extremities: Present full ROM, pulses intact and normal capillary refill Routine Back/Spine/Pelvis Exam Back/Spine: Present full ROM *Routine Skin Exam Skin: Present intact, dry and warm *Routine Neurological Exam Neurological: Present alert, oriented X3, normal reflexes, moving all extremities and normal speech Routine Psychiatric Exam Psychiatric: Present normal affect, normal thought process, cooperative, good insight and good judgment H&P: Result Imaging and Cardiology EKG: Status: image reviewed by me and final report CTA: Status: image reviewed by me and final report Chest x-ray: Status: image reviewed by me and final report Assessment and Plan *Assessment and plan (1) Angina at rest: Status: Acute Category: Medical Code(s): I20.8 - Other forms of angina pectoris (2) Diabetes type 2, uncontrolled: Status: Chronic Qualifiers: Glycemic state: with hyperglycemia Qualified Code(s): E11.65 - Type 2 diabetes mellitus with hyperglycemia Category: Medical (3) Hyperlipidemia: Status: Chronic Qualifiers: Hyperlipidemia type: mixed hyperlipidemia Qualified Code(s): E78.2 - M ixed hyperlipidemia Category: Medical Code(s): E78.5 - Hyperlipidemia, unspecified (4) Tobacco use: Status: Chronic Category: Social Hx Code(s): Z72.0 - Tobacco use (5) Obesity (BMI 30.0-34.9): Status: Chronic Category: Medical Code(s): E66.9 - Obesity, unspecified Plan This is a 48 yo male presents with PMHx of uncontrolled non insuline dependant diabetes, Hypertension, HLD, heavy tobacco user, that presented to ER c/o chest pain for several days. Stated his PCP advised to visit ER if pain does not improve. pain has been on and off. Patient stated this morning causes additional pain/discomfort when he lays down and causes his left arm to go 'go numb'. Patient also c/o not tolerating lying down due to SOB. He currently denied Chest pain or SOB. initial ER evaluation included negative troponin, EKG showing sinus tachycardia, CTA was done negative for PE. CXR also neg. Labs was obtained and showed mild hyponatremia. Findings discussed with ER provider, agreed for patient admission , cardiac consult for further work up. Will continue with the following plan: 1. Admit patient for continued cardiac telemetry, monitor for chest pain, blood pressure, heart rate and the rest of the vital signs per unit protocol. Echocardiogram ordered monitor for shortness of breath, keep sat above 90%, O2 by nasal cannula As Needed 2 L. Nitroglycerin sublingual 0.4 mg as needed for chest pain. Repeat CMP CBC in the morning, monitor for electrolyte imbalance. Encourage hydration, routine I/Os. Keep n.p.o. after midnight for possible cardiac work-up. Cardiac consult, appreciate follow-up and management. On aspirin 2. Resume home medication insulin sliding scale, on metformin 1000mg daily 3. Continue atorvastatin 4. Nicotine patch daily. Smoking cessation education provided. 5. Education provided about risk factors modification, including a normal BMI and lifestyle changes Lovenox for DVT prophylaxis Full code Further recommendation will be implemented based on clinical presentation. Plan discussed with the patient. Patient and agree with the plan. We will continue to monitor
[2023-03-21 01:42] LABS: WBC,Urine Occasional #/hpf (0-3)
[2023-03-21 01:43] LABS: Squamous Epithelial Cell,Urine Occasional #/hpf (0-5)
[2023-03-21 03:20] LABS: Troponin I < 0.01 ng/ml (0.00-0.034)
[2023-03-21 06:15] LABS: POC Glucose,Bedside 154 (70-110)
[2023-03-21 06:19] LABS: Chloride 100 mmol/L (98-107); Sodium 134 mmol/L (136-145)
[2023-03-21 06:20] LABS: Basophils # 0.1 K/mm3 (0-0.2); Basophils % 0.5 % (0.1-2.0); Eosinophils # 0.3 K/mm3 (0.0-0.4); Eosinophils % 2.3 % (0.1-12.0); Hemoglobin 15.6 g/dL (14.1-18.0); Lymphocytes # 4.4 K/mm3 (0.7-4.5); Lymphocytes % 34.4 % (10-50); Mean Corpuscular HGB Conc 34.7 g/dL (31.8-35.4); Mean Corpuscular Volume 83.6 fl (80-94); Mean Platelet Volume 9.2 fl (7.4-10.4); Monocytes # 0.7 K/mm3 (0.1-1.0); Monocytes % 5.1 % (1.7-9.3); Neutrophils # 7.4 K/mm3 (1.8-7.8); Neutrophils % 57.6 % (37.0-80.0); Platelet Count 206 K/mm3 (142-424); Potassium 3.6 mmoL/L (3.5-5.1); Red Blood Count 5.38 M/mm3 (4.60-6.20); Red Cell Distribution Width 12.9 % (11.5-17.5); White Blood Count 12.8 K/mm3 (4.8-10.8)
[2023-03-21 06:22] LABS: Alanine Aminotransferase 26 U/L (12-78); Albumin Level 3.8 g/dl (3.5-5.0); Albumin/Globulin Ratio 1.4 (1.1-1.8); Alkaline Phosphatase 84 U/L (38-126); Anion Gap 13.6 mEq/L (5-15); Aspartate Amino Transferase 27 U/L (17-59); Bilirubin,Total 0.6 mg/dl (0.2-1.3); Blood Urea Nitrogen 12 mg/dl (9-20); Carbon Dioxide 24 mmol/L (22.0-30.0); Cholesterol 165 mg/dl (140-200); Creatinine Clearance Estimated 238 mL/min (50-200); Estimated Glomerular Filt Rate 144 ml/min (>60); GFR (African American) 175 ML/MIN (>60); Globulin 2.8 g/dL (1.3-3.2); Total Protein,Serum 6.6 g/dl (6.3-8.2); Triglycerides 263 mg/dl (30-150); VLDL Cholesterol 53 mg/dL (0-40)
[2023-03-21 06:23] LABS: Calcium 8.3 mg/dl (8.4-10.2); Chol/HDL Ratio 7.2 (1-3.5); Glucose 140 mg/dl (74-100); HDL Cholesterol 23 mg/dl (40-60)
[2023-03-21 06:34] LABS: Direct LDL Cholesterol 97.11 mg/dL (100-129)
[2023-03-21 07:03] LABS: Troponin I < 0.01 ng/ml (0.00-0.034)
--- NOTE | 2023-03-21 07:17 | HMH.PHAINT1 ---
Pharmacy Intervention Comments: MEDICATION RECONCILIATION COMPLETED ON PATIENT USING EXTERNAL FILL HISTORY FROM PHARMACY. -JAVY VELAZCO, [place]
--- NOTE | 2023-03-21 08:03 | EXP.CARD.CON ---
History of Present Illness History of Present Illness Consult date: 03/21/23 Requesting physician: Brian Regan Consult reason: chest pain Chief complaint: chest pain Additional Medical History:: 1. Diabetes mellitus, treated for at least 4 years 2. Tobacco use A. [id number] 3. Obesity 4. Hyperlipidemia History of present illness: This is a 48 yo male presents with PMHx of uncontrolled non insulin dependant? diabetes, Hypertension, HLD, heavy tobacco user, that presented to ER c/o chest pain for several days. Stated his PCP advised to visit ER if pain does not improve. pain has been on and off. Patient stated this morning? causes additional pain/discomfort when he lays down and causes his left arm to go 'go numb'. Patient also c/o not tolerating lying down due to SOB. He currently denied Chest pain or SOB. initial ER evaluation included negative troponin, EKG suggested unspecific changes. CTA was done. Negative for PE. CXR neg. Labs was obatained and showed mild hyponatremia. Patient will be admitted for further management and work up. The above per Gary Ball APRN, for the Hospitalist service. Patient relates several days history of exertional shortness of breath which included some chest discomfort last evening prior to arrival. He did receive sublingual nitroglycerin as well as nitroglycerin paste in the ER and has had no further chest pain since admission. Troponins have returned normal times 3 with EKG showing sinus tachycardia with mild ST elevation inferiorly which may be a early repolarization changes. Preliminary echocardiogram shows mild global hypokinesis with an EF of about 50%. Official report is pending. [facility] Disclaimer: The information contained in this section may have been updated after the patient was seen, as this information can be updated by other users. Medical History Carbon monoxide poisoning Surgical History Hx of drainage of abscess Social History (Updated 03/21/23 @ 02:42 by Candace Niño RN) Smoking Status: Current every day smoker tobacco type: cigarettes packs per day: 1 alcohol intake: never current occupational status: employed Travel in the last 8 weeks: None household members: none Review of Systems Review of Systems Review of systems:: pertinent systems reviewed and negative unless documented below *Cardiovascular Cardiovascular: Reports chest pain and Reports dyspnea on exertion *Respiratory Respiratory: Reports dyspnea on exertion Exam Data for Last 24 hours Vital signs and Labs for Last 24 Hours: Temp Pulse Resp BP Pulse Ox 98.2 F 73 18 108/62 L 96 03/21/23 04:00 03/21/23 04:00 03/21/23 04:00 03/21/23 04:00 03/21/23 07:51 Laboratory Results - last 24 hr 03/20/23 23:22: WBC 14.0 H, RBC 5.44, Hgb 16.0, Hct 46.1, MCV 84.6, MCH 29.4, MCHC 34.7, RDW 12.9, Plt Count 223, MPV 9.3, Neut % (Auto) 62.4, Lymph % (Auto) 29.2, [place] % (Auto) 5.0, Eos % (Auto) 2.9, Baso % (Auto) 0.5, Neut # (Auto) 8.7 H, Lymph # (Auto) 4.1, [place] # (Auto) 0.7, Eos # (Auto) 0.4, Baso # (Auto) 0.1 03/20/23 23:22: Sodium 133 L, Potassium 4.3, Chloride 95 L, Carbon Dioxide 27, Anion Gap 15.3 H, BUN 14, Creatinine 0.60 L, Estimated Creat Clear 239, Estimated GFR 144, Est GFR ( Amer) 175, Glucose 217 H, Calcium 9.1, Total Bilirubin 0.4, AST 37, ALT 37, Alkaline Phosphatase 110, Troponin I < 0.01, C-Reactive Protein 3.9, NT-Pro-B Natriuret Pep < 20.0, Total Protein 7.9, Albumin 4.5, Globulin 3.4 H, Albumin/Globulin Ratio 1.3, TSH 3.54, Thyroxine (T4) 13.1 H 03/20/23 23:22: Hemoglobin A1c 9.6 H 03/20/23 23:22: ESR 12 03/20/23 23:22: Lipase 116 03/21/23 00:00: PT 10.9, INR 1.01 03/21/23 01:07: SARS-CoV-2 (PCR) Not detected, Influenza A Untype (PCR) Not detected, Influenza Type B (PCR) Not detected 03/21/23 01:17: Urine Color Yellow, Urine Appearance Clear, Urine pH 5.5, Ur Specific [place] <= 1.005, Urine Protein Negative, Urine Glucose (UA) 3+, Urine Ketones Negative, Urine Blood Negative, Urine Nitrate Negative, Urine Bilirubin Negative, Urine Urobilinogen 0.2, Ur Leukocyte Esterase Negative, Urine RBC None, Urine WBC Occasional, Ur Squamous Epith Cells Occasional, Urine Bacteria None 03/21/23 02:50: Troponin I < 0.01 03/21/23 05:38: Troponin I < 0.01 03/21/23 05:38: WBC 12.8 H, RBC 5.38, Hgb 15.6, Hct 45.0, MCV 83.6, MCH 29.0, MCHC 34.7, RDW 12.9, Plt Count 206, MPV 9.2, Neut % (Auto) 57.6, Lymph % (Auto) 34.4, [place] % (Auto) 5.1, Eos % (Auto) 2.3, Baso % (Auto) 0.5, Neut # (Auto) 7.4, Lymph # (Auto) 4.4, [place] # (Auto) 0.7, Eos # (Auto) 0.3, Baso # (Auto) 0.1 03/21/23 05:38: Sodium 134 L, Potassium 3.6, Chloride 100, Carbon Dioxide 24, Anion Gap 13.6, BUN 12, Creatinine 0.60 L, Estimated Creat Clear 238, Estimated GFR 144, Est GFR ( Amer) 175, Glucose 140 H D, Calcium 8.3 L, Total Bilirubin 0.6, AST 27 D, ALT 26 D, Alkaline Phosphatase 84, Total Protein 6.6, Albumin 3.8 D, Globulin 2.8, Albumin/Globulin Ratio 1.4, Triglycerides 263 H, Cholesterol 165, LDL Cholesterol Direct 97.11 L, VLDL Cholesterol 53 H, HDL Cholesterol 23 L, Cholesterol/HDL Ratio 7.2 H 03/21/23 06:07: POC Glucose 154 H I & O for Last 24 hours: Intake & Output 03/18/23 03/19/23 03/20/23 03/21/23 11:59 11:59 11:59 11:59 Intake Total 1000 / 1000 Output Total 300 / 300 Balance 700 / 700 Weight 243 lb 7 oz Constitutional Constitutional: no acute distress *Routine Neck Exam Neck: Absent full ROM, JVD or carotid bruit *Routine Respiratory Exam Respiratory: Present CTA bilaterally *Routine Cardiovascular Exam Cardiovascular: Present RRR; Absent murmur, gallop or rubs *Routine Extremities Exam Extremities: Absent cyanosis, clubbing or edema *Routine Neurological Exam Neurological: Present alert, oriented X3 and CN II-XII intact Meds Home Medications and Allergies Home Medications Medication Instructions Recorded Confirmed Type metformin 500 mg tablet,extended 1,000 mg PO DAILY Diabetes 01/13/23 03/21/23 History release 24 hr aspirin 81 mg tablet,delayed 81 mg PO DAILY HEART HEALTH 03/21/23 03/21/23 History release atorvastatin 10 mg tablet (Lipitor) 10 mg PO HS Cholesterol 03/21/23 03/21/23 History blood sugar diagnostic (Blood 03/21/23 03/21/23 History Glucose Test strips) blood sugar diagnostic (ReliOn 03/21/23 03/21/23 History Prime Test Strips) blood-glucose meter (Blood Glucose 03/21/23 03/21/23 History Monitoring kit) dapagliflozin propanediol 10 mg 10 mg PO DAILY Diabetes 03/21/23 03/21/23 History tablet (Farxiga) glipizide 10 mg tablet, extended 10 mg PO DAILY Diabetes 03/21/23 03/21/23 History release 24 hr lisinopril 2.5 mg tablet 2.5 mg PO DAILY Hypertension 03/21/23 03/21/23 History sitagliptin phosphate 100 mg 100 mg PO DAILY Diabetes 03/21/23 03/21/23 History tablet (Januvia) New Prescriptions to Start Prescriptions: Allergies Allergy/AdvReac Type Severity Reaction Status Date / Time bee pollen Allergy Verified 03/17/23 11:08 Assessment and Plan *Assessment and plan (1) Angina at rest: Status: Acute Category: Medical Code(s): I20.8 - Other forms of angina pectoris (2) Hyperlipidemia: Status: Chronic Qualifiers: Hyperlipidemia type: mixed hyperlipidemia Qualified Code(s): E78.2 - Mixed hyperlipidemia Category: Medical Code(s): E78.5 - Hyperlipidemia, unspecified (3) Diabetes type 2, uncontrolled: Status: Chronic Qualifiers: Glycemic state: with hyperglycemia Qualified Code(s): E11.65 - Type 2 diabetes mellitus with hyperglycemia Category: Medical (4) Tobacco use: Status: Chronic Category: Social Hx Code(s): Z72.0 - Tobacco use (5) Obesity (BMI 30.0-34.9): Status: Chronic Category: Medical Code(s): E66.9 - Obesity, unspecified (6) Abnormal EKG: Status: Acute Category: Medical Code(s): R94.31 - Abnormal electrocardiogram [ECG] [EKG] Plan 1. Angina which resolved with sublingual nitroglycerin. Troponins normal x3 with abnormal EKG. Plan to proceed with left heart catheterization today to rule out coronary artery disease due to multiple cardiac risk factors including diabetes, tobacco use and hypertension and hyperlipidemia Abnormal EKG with inferior ST-T abnormalities. Mild global hypokinesis on preliminary reading of echocardiogram Continue low-dose TATY inhibitor Unable to add beta-jarrod due to borderline low blood pressure Further recommendations to follow pending above results 2. Diabetes mellitus defer to hospitalist 3. Tobacco use, cessation recommended 4. Hyperlipidemia, continue statin therapy SCAI score 3
--- NOTE | 2023-03-21 08:07 | PC.NURSE ---
Per labor relations worker RN, do no administer Lovenox or Metformin this morning.
--- NOTE | 2023-03-21 08:09 | ECG_ITS ---
APPROVED REPORT Exam: Resting ECG HR:78 bpm ECG Measurements Heart Rate 78 AXES CO 158 P 56 QRSd 98 QRS 30 QT 393 T 40 QTc 427 Conclusion SINUS RHYTHM NORMAL ECG UNCONFIRMED REPORT Electronically signed by : Dusty Gómez MD 03/21/2023 17:11:14
--- NOTE | 2023-03-21 09:24 | IR_ITS ---
APPROVED REPORT Patient Location: Inpatient Laboratory Asst: ABHAY Esteves RT (R) PROCEDURES Left heart catheterization Left ventriculogram Selective coronary angiogram Drug-eluting stent deployment to the proximal mid LAD INDICATION Coronary artery disease, Unstable angina Informed consent was obtained prior to the procedure. COMPLICATIONS None Estimated Blood Loss: Less than 10 mls TECHNIQUE One percent lidocaine used to anesthetize the right anterior aspect of the wrist. The right radial artery was accessed via the Seldinger technique. A 6 Serbian sheath was placed in the right radial artery. 150 mg magnesium sulfate, 800 mcg of nitroglycerin, 1mg Lidocaine and 5000 U Heparin were given through the arterial sheath. The papa catheter was also used to perform selective coronary angiography. At the end the diagnostic angiogram therapeutic heparin was administered giving a therapeutic ACT and the guide catheter was placed in left main artery followed by Choice PT export wire being placed on the LAD. 3.5 x 38 mm Allen frontier stent was deployed at 18 nichelle reducing the severe stenosis to 30%. A 3.5 x 12 mm noncompliant balloon was deployed at 24 and then 26 nichelle to post dilate. Excellent angiographic results were obtained with the stenosis being reduced to less than 10% at the end of the procedure. OCTAVIANO-3 flow was present before and after the procedure at the end of procedure the apparatus was removed the sheath was removed and hemostasis was achieved using TR banding patient was transferred to the postop putting in stable condition ANGIOGRAPHIC RESULTS The left main artery Normal The left anterior descending artery Has a proximal 40 to 50% stenosis followed by concentric mid vessel 70% stenosis The circumflex artery Is a large and dominant and proximally normal. Gives rise to a large ramus intermedius which has a proximal 20 to 30% stenosis. Immediately after the ramus intermedius the circumflex artery has a smooth 20 to 30% stenosis. Second obtuse marginal has 10% luminal irregularities The right coronary artery Is nondominant and has proximal 10 to 20% stenosis The CAMACHO ventriculogram reveals Not performed The left ventricular end-diastolic pressure Not measured IMPRESSION Severe mid LAD disease as described above Successful stenting of the proximal and mid LAD moderate and severe disease reduced to 0% with 1 contiguous drug-eluting stent Mild to moderate coronary artery disease as described above PLAN 1. Dual antiplatelet therapy 2. LDL less than 55 to be achieved with high intensity statin 3. Cardiac rehabilitation 4. Avoidance of tobacco products 5. Risk factor modification Electronically signed by : Yamil Johnston MD 03/21/2023 12:19:47
[2023-03-21] MEDS: ASPIRIN 81MG CHEWABLE TABLET 81 MG PO (10:41)
[2023-03-21] MEDS: LISINOPRIL 2.5MG TABLET 2.5 MG PO (10:41)
[2023-03-21] MEDS: diphenhydrAMINE 50MG/ML VIAL 50 MG IV (11:39)
[2023-03-21] MEDS: HEPARIN 1,000 UNITS/ML 10ML VIAL (CATH LAB) 10000 UNIT IV (11:40)
[2023-03-21] MEDS: HEPARIN 1,000 UNITS/500ML NS (CATH LAB) 3000 UNIT IV (11:40)
[2023-03-21] MEDS: LIDOCAINE 1% 10ML MDV 20 ML IJ (11:40)
[2023-03-21] MEDS: NITROGLYCERIN 800MCG/8ML SYR (CATH LAB) 800 MCG IA (11:40)
[2023-03-21] MEDS: VERAPAMIL 2.5MG/ML 2ML VIAL 2.5 MG IV (11:40)
[2023-03-21] MEDS: 0.9 % SODIUM CHLORIDE 500 ML 25 ML IV (11:41)
[2023-03-21] MEDS: FENTANYL 100MCG/2ML VIAL 25 MCG IV (11:41)
[2023-03-21] MEDS: MIDAZOLAM HCL 1MG/1ML 5ML VIAL 1 MG IV (11:41)
[2023-03-21] MEDS: IOPAMIDOL-370 (76%);100ML BOTTLE 110 ML IV (12:27)
[2023-03-21] MEDS: TICAGRELOR 90MG TABLET 90 MG PO (12:28)
[2023-03-21 12:29] LABS: CATHL Activated Clotting Time 378 SEC (74-125)
--- NOTE | 2023-03-21 15:47 | EXP.PN ---
Subjective *Date: 03/21/23 *Time: 15:52 Interval history: No acute distress. Patient status postcardiac catheterization today with cardiac stent placed. Exam Data for Last 24 hours Vital signs and Labs for Last 24 Hours: Temp Pulse Resp BP Pulse Ox 98.9 F 78 19 106/69 L 92 L 03/21/23 12:41 03/21/23 12:41 03/21/23 12:41 03/21/23 12:41 03/21/23 12:41 Laboratory Results - last 24 hr 03/20/23 23:22: WBC 14.0 H, RBC 5.44, Hgb 16.0, Hct 46.1, MCV 84.6, MCH 29.4, MCHC 34.7, RDW 12.9, Plt Count 223, MPV 9.3, Neut % (Auto) 62.4, Lymph % (Auto) 29.2, [place] % (Auto) 5.0, Eos % (Auto) 2.9, Baso % (Auto) 0.5, Neut # (Auto) 8.7 H, Lymph # (Auto) 4.1, [place] # (Auto) 0.7, Eos # (Auto) 0.4, Baso # (Auto) 0.1 03/20/23 23:22: Sodium 133 L, Potassium 4.3, Chloride 95 L, Carbon Dioxide 27, Anion Gap 15.3 H, BUN 14, Creatinine 0.60 L, Estimated Creat Clear 239, Estimated GFR 144, Est GFR ( Amer) 175, Glucose 217 H, Calcium 9.1, Total Bilirubin 0.4, AST 37, ALT 37, Alkaline Phosphatase 110, Troponin I < 0.01, C-Reactive Protein 3.9, NT-Pro-B Natriuret Pep < 20.0, Total Protein 7.9, Albumin 4.5, Globulin 3.4 H, Albumin/Globulin Ratio 1.3, TSH 3.54, Thyroxine (T4) 13.1 H 03/20/23 23:22: Hemoglobin A1c 9.6 H 03/20/23 23:22: ESR 12 03/20/23 23:22: Lipase 116 03/21/23 00:00: PT 10.9, INR 1.01 03/21/23 01:07: SARS-CoV-2 (PCR) Not detected, Influenza A Untype (PCR) Not detected, Influenza Type B (PCR) Not detected 03/21/23 01:17: Urine Color Yellow, Urine Appearance Clear, Urine pH 5.5, Ur Specific [place] <= 1.005, Urine Protein Negative, Urine Glucose (UA) 3+, Urine Ketones Negative, Urine Blood Negative, Urine Nitrate Negative, Urine Bilirubin Negative, Urine Urobilinogen 0.2, Ur Leukocyte Esterase Negative, Urine RBC None, Urine WBC Occasional, Ur Squamous Epith Cells Occasional, Urine Bacteria None 03/21/23 02:50: Troponin I < 0.01 03/21/23 05:38: Troponin I < 0.01 03/21/23 05:38: WBC 12.8 H, RBC 5.38, Hgb 15.6, Hct 45.0, MCV 83.6, MCH 29.0, MCHC 34.7, RDW 12.9, Plt Count 206, MPV 9.2, Neut % (Auto) 57.6, Lymph % (Auto) 34.4, [place] % (Auto) 5.1, Eos % (Auto) 2.3, Baso % (Auto) 0.5, Neut # (Auto) 7.4, Lymph # (Auto) 4.4, [place] # (Auto) 0.7, Eos # (Auto) 0.3, Baso # (Auto) 0.1 03/21/23 05:38: Sodium 134 L, Potassium 3.6, Chloride 100, Carbon Dioxide 24, Anion Gap 13.6, BUN 12, Creatinine 0.60 L, Estimated Creat Clear 238, Estimated GFR 144, Est GFR ( Amer) 175, Glucose 140 H D, Calcium 8.3 L, Total Bilirubin 0.6, AST 27 D, ALT 26 D, Alkaline Phosphatase 84, Total Protein 6.6, Albumin 3.8 D, Globulin 2.8, Albumin/Globulin Ratio 1.4, Triglycerides 263 H, Cholesterol 165, LDL Cholesterol Direct 97.11 L, VLDL Cholesterol 53 H, HDL Cholesterol 23 L, Cholesterol/HDL Ratio 7.2 H 03/21/23 06:07: POC Glucose 154 H 03/21/23 11:58: Activated Clotting Time 378 H* I & O for Last 24 hours: Intake & Output 03/18/23 03/19/23 03/20/23 03/21/23 23:59 23:59 23:59 23:59 Intake Total 1000 / 1000 Output Total 300 / 300 Balance 700 / 700 Weight 111.13 kg 110.421 kg Constitutional Constitutional: no acute distress and cooperative *Routine HEENT Exam Head: Present normocephalic Eye: Present EOMI and normal accommodation ENT: Present mucous membranes moist *Routine Neck Exam Neck: Present supple and full ROM *Routine Respiratory Exam Respiratory: Present CTA bilaterally; Absent accessory muscle use *Routine Cardiovascular Exam Cardiovascular: Present RRR, Normal S1 and Normal S2 *Routine Abdominal Exam Abdominal: Present soft and normoactive bowel sounds; Absent rebound or guarding *Routine Rectal Exam Comments: deferred *Routine Exam Comments: deferred *Routine Extremities Exam Extremities: Present full ROM and normal capillary refill *Routine Skin Exam Skin: Present intact and normal turgor *Routine Neurological Exam Neurological: Present alert and moving all extremities Assessment and Plan *Assessment and plan (1) Angina at rest: Status: Acute Category: Medical Code(s): I20.8 - Other forms of angina pectoris (2) Diabetes type 2, uncontrolled: Status: Chronic Qualifiers: Glycemic state: with hyperglycemia Qualified Code(s): E11.65 - Type 2 diabetes mellitus with hyperglycemia Category: Medical (3) Obesity (BMI 30.0-34.9): Status: Chronic Category: Medical Code(s): E66.9 - Obesity, unspecified (4) Hyperlipidemia: Status: Chronic Qualifiers: Hyperlipidemia type: mixed hyperlipidemia Qualified Code(s): E78.2 - Mixed hyperlipidemia Category: Medical Code(s): E78.5 - Hyperlipidemia, unspecified Plan Typical angina ? Status post cardiology evaluation today with left heart catheterization and drug-eluting stent placed. Monitor patient overnight. Continue current management including aspirin, Brilinta, atorvastatin, and metoprolol. Diabetes: Sign scale insulin, ACHS Accu-Cheks. Hold metformin Obesity: Continue outpatient management Hyperlipidemia: Continue outpatient management PPx: Lovenox FEN: diabetic/cardiac diet CODE STATUS: Full Disposition: Likely in a.m. if healthcare consultant agrees and patient remains chest pain-free overnight
[2023-03-21 16:57] LABS: POC Glucose,Bedside 206 (70-110)
--- NOTE | 2023-03-21 17:38 | PC.NURSE ---
PageANJELICA Trinidad with cards, form their standpoint, the patient may be discharged today.
--- NOTE | 2023-03-21 18:18 | EXP.DC.SUM ---
General Admission date:: 03/21/23 Discharge date: 03/21/23 HPI HPI HPI: This is a 48 yo male presents with PMHx of uncontrolled non insuline dependant? diabetes, Hypertension, HLD, heavy tobacco user, that presented to ER c/o chest pain for several days. Stated his PCP advised to visit ER if pain does not improve. pain has been on and off. Patient stated this morning? causes additional pain/discomfort when he lays down and causes his left arm to go 'go numb'. Patient also c/o not tolerating lying down due to SOB. He currently denied Chest pain or SOB. initial ER evaluation included negative troponin, EKG suggested unspecific changes. CTA was done. Negative for PE. CXR neg. Labs was obatained and showed mild hyponatremia. Patient will be admitted for further management and work up. Hospital Course Hospital Course Hospital Course: Patient admitted for chest discomfort with elevated cardiac enzymes. Patient received cardiac catheterization with drug-eluting stent placed. Patient evaluated by cardiology after cardiac catheterization and deemed appropriate for outpatient follow-up. Patient subsequently discharged home on aspirin, Brilinta, beta-jarrod, atorvastatin therapy. Patient advised to follow-up with both cardiology and primary care physician after hospital discharge. Exam Data for Last 24 hours Vital signs and Labs for Last 24 Hours: Temp Pulse Resp BP Pulse Ox 98.2 F 90 21 110/59 L 95 03/21/23 17:30 03/21/23 17:30 03/21/23 17:30 03/21/23 17:30 03/21/23 17:30 Laboratory Results - last 24 hr 03/20/23 23:22: WBC 14.0 H, RBC 5.44, Hgb 16.0, Hct 46.1, MCV 84.6, MCH 29.4, MCHC 34.7, RDW 12.9, Plt Count 223, MPV 9.3, Neut % (Auto) 62.4, Lymph % (Auto) 29.2, [place] % (Auto) 5.0, Eos % (Auto) 2.9, Baso % (Auto) 0.5, Neut # (Auto) 8.7 H, Lymph # (Auto) 4.1, [place] # (Auto) 0.7, Eos # (Auto) 0.4, Baso # (Auto) 0.1 03/20/23 23:22: Sodium 133 L, Potassium 4.3, Chloride 95 L, Carbon Dioxide 27, Anion Gap 15.3 H, BUN 14, Creatinine 0.60 L, Estimated Creat Clear 239, Estimated GFR 144, Est GFR ( Amer) 175, Glucose 217 H, Calcium 9.1, Total Bilirubin 0.4, AST 37, ALT 37, Alkaline Phosphatase 110, Troponin I < 0.01, C-Reactive Protein 3.9, NT-Pro-B Natriuret Pep < 20.0, Total Protein 7.9, Albumin 4.5, Globulin 3.4 H, Albumin/Globulin Ratio 1.3, TSH 3.54, Thyroxine (T4) 13.1 H 03/20/23 23:22: Hemoglobin A1c 9.6 H 03/20/23 23:22: ESR 12 03/20/23 23:22: Lipase 116 03/21/23 00:00: PT 10.9, INR 1.01 03/21/23 01:07: SARS-CoV-2 (PCR) Not detected, Influenza A Untype (PCR) Not detected, Influenza Type B (PCR) Not detected 03/21/23 01:17: Urine Color Yellow, Urine Appearance Clear, Urine pH 5.5, Ur Specific [place] <= 1.005, Urine Protein Negative, Urine Glucose (UA) 3+, Urine Ketones Negative, Urine Blood Negative, Urine Nitrate Negative, Urine Bilirubin Negative, Urine Urobilinogen 0.2, Ur Leukocyte Esterase Negative, Urine RBC None, Urine WBC Occasional, Ur Squamous Epith Cells Occasional, Urine Bacteria None 03/21/23 02:50: Troponin I < 0.01 03/21/23 05:38: Troponin I < 0.01 03/21/23 05:38: WBC 12.8 H, RBC 5.38, Hgb 15.6, Hct 45.0, MCV 83.6, MCH 29.0, MCHC 34.7, RDW 12.9, Plt Count 206, MPV 9.2, Neut % (Auto) 57.6, Lymph % (Auto) 34.4, [place] % (Auto) 5.1, Eos % (Auto) 2.3, Baso % (Auto) 0.5, Neut # (Auto) 7.4, Lymph # (Auto) 4.4, [place] # (Auto) 0.7, Eos # (Auto) 0.3, Baso # (Auto) 0.1 03/21/23 05:38: Sodium 134 L, Potassium 3.6, Chloride 100, Carbon Dioxide 24, Anion Gap 13.6, BUN 12, Creatinine 0.60 L, Estimated Creat Clear 238, Estimated GFR 144, Est GFR ( Amer) 175, Glucose 140 H D, Calcium 8.3 L, Total Bilirubin 0.6, AST 27 D, ALT 26 D, Alkaline Phosphatase 84, Total Protein 6.6, Albumin 3.8 D, Globulin 2.8, Albumin/Globulin Ratio 1.4, Triglycerides 263 H, Cholesterol 165, LDL Cholesterol Direct 97.11 L, VLDL Cholesterol 53 H, HDL Cholesterol 23 L, Cholesterol/HDL Ratio 7.2 H 03/21/23 06:07: POC Glucose 154 H 03/21/23 11:58: Activated Clotting Time 378 H* 03/21/23 16:50: POC Glucose 206 H I & O for Last 24 hours: Intake & Output 03/18/23 03/19/23 03/20/23 03/21/23 23:59 23:59 23:59 23:59 Intake Total 1240 / 1240 Output Total 300 / 300 Balance 940 / 940 Weight 111.13 kg 110.421 kg *Routine HEENT Exam Head: Present normocephalic Eye: Present normal accommodation *Routine Neck Exam Neck: Present supple and full ROM *Routine Respiratory Exam Respiratory: Present CTA bilaterally; Absent accessory muscle use *Routine Cardiovascular Exam Cardiovascular: Present RRR, Normal S1 and Normal S2 *Routine Abdominal Exam Abdominal: Present soft and normoactive bowel sounds; Absent rebound or guarding *Routine Rectal Exam Comments: deferred *Routine Exam Comments: Deferred *Routine Extremities Exam Extremities: Present full ROM and normal capillary refill *Routine Skin Exam Skin: Present intact and warm *Routine Neurological Exam Neurological: Present alert, oriented X3, normal reflexes and moving all extremities Results Data Completed and Pending Labs on day of discharge: Labs from last 24 hours 03/21/23 03/21/23 03/21/23 16:50 11:58 06:07 WBC RBC Hgb Hct MCV MCH MCHC RDW Plt Count MPV Neut % (Auto) Lymph % (Auto) [place] % (Auto) Eos % (Auto) Baso % (Auto) Neut # (Auto) Lymph # (Auto) [place] # (Auto) Eos # (Auto) Baso # (Auto) ESR PT INR Activated Clotting Time 378 H* Sodium Potassium Chloride Carbon Dioxide Anion Gap BUN Creatinine Estimated Creat Clear Estimated GFR Est GFR ( Amer) Glucose POC Glucose 206 H 154 H Hemoglobin A1c Calcium Total Bilirubin AST ALT Alkaline Phosphatase Troponin I C-Reactive Protein NT-Pro-B Natriuret Pep Total Protein Albumin Globulin Albumin/Globulin Ratio Triglycerides Cholesterol LDL Cholesterol Direct VLDL Cholesterol HDL Cholesterol Cholesterol/HDL Ratio Lipase TSH Thyroxine (T4) Urine Color Urine Appearance Urine pH Ur Specific [place] Urine Protein Urine Glucose (UA) Urine Ketones Urine Blood Urine Nitrate Urine Bilirubin Urine Urobilinogen Ur Leukocyte Esterase Urine RBC Urine WBC Ur Squamous Epith Cells Urine Bacteria SARS-CoV-2 (PCR) Influenza A Untype (PCR) Influenza Type B (PCR) 03/21/23 03/21/23 03/21/23 05:38 05:38 05:38 WBC 12.8 H RBC 5.38 Hgb 15.6 Hct 45.0 MCV 83.6 MCH 29.0 MCHC 34.7 RDW 12.9 Plt Count 206 MPV 9.2 Neut % (Auto) 57.6 Lymph % (Auto) 34.4 [place] % (Auto) 5.1 Eos % (Auto) 2.3 Baso % (Auto) 0.5 Neut # (Auto) 7.4 Lymph # (Auto) 4.4 [place] # (Auto) 0.7 Eos # (Auto) 0.3 Baso # (Auto) 0.1 ESR PT INR Activated Clotting Time Sodium 134 L Potassium 3.6 Chloride 100 Carbon Dioxide 24 Anion Gap 13.6 BUN 12 Creatinine 0.60 L Estimated Creat Clear 238 Estimated GFR 144 Est GFR ( Amer) 175 Glucose 140 H D POC Glucose Hemoglobin A1c Calcium 8.3 L Total Bilirubin 0.6 AST 27 D ALT 26 D Alkaline Phosphatase 84 Troponin I < 0.01 C-Reactive Protein NT-Pro-B Natriuret Pep Total Protein 6.6 Albumin 3.8 D Globulin 2.8 Albumin/Globulin Ratio 1.4 Triglycerides 263 H Cholesterol 165 LDL Cholesterol Direct 97.11 L VLDL Cholesterol 53 H HDL Cholesterol 23 L Cholesterol/HDL Ratio 7.2 H Lipase TSH Thyroxine (T4) Urine Color Urine Appearance Urine pH Ur Specific [place] Urine Protein Urine Glucose (UA) Urine Ketones Urine Blood Urine Nitrate Urine Bilirubin Urine Urobilinogen Ur Leukocyte Esterase Urine RBC Urine WBC Ur Squamous Epith Cells Urine Bacteria SARS-CoV-2 (PCR) Influenza A Untype (PCR) Influenza Type B (PCR) 03/21/23 03/21/23 03/21/23 02:50 01:17 01:07 WBC RBC Hgb Hct MCV MCH MCHC RDW Plt Count MPV Neut % (Auto) Lymph % (Auto) [place] % (Auto) Eos % (Auto) Baso % (Auto) Neut # (Auto) Lymph # (Auto) [place] # (Auto) Eos # (Auto) Baso # (Auto) ESR PT INR Activated Clotting Time Sodium Potassium Chloride Carbon Dioxide Anion Gap BUN Creatinine Estimated Creat Clear Estimated GFR Est GFR ( Amer) Glucose POC Glucose Hemoglobin A1c Calcium Total Bilirubin AST ALT Alkaline Phosphatase Troponin I < 0.01 C-Reactive Protein NT-Pro-B Natriuret Pep Total Protein Albumin Globulin Albumin/Globulin Ratio Triglycerides Cholesterol LDL Cholesterol Direct VLDL Cholesterol HDL Cholesterol Cholesterol/HDL Ratio Lipase TSH Thyroxine (T4) Urine Color Yellow Urine Appearance Clear Urine pH 5.5 Ur Specific [place] <= 1.005 Urine Protein Negative Urine Glucose (UA) 3+ Urine Ketones Negative Urine Blood Negative Urine Nitrate Negative Urine Bilirubin Negative Urine Urobilinogen 0.2 Ur Leukocyte Esterase Negative Urine RBC None Urine WBC Occasional Ur Squamous Epith Cells Occasional Urine Bacteria None SARS-CoV-2 (PCR) Not detected Influenza A Untype (PCR) Not detected Influenza Type B (PCR) Not detected 03/21/23 03/20/23 03/20/23 00:00 23:22 23:22 WBC RBC Hgb Hct MCV MCH MCHC RDW Plt Count MPV Neut % (Auto) Lymph % (Auto) [place] % (Auto) Eos % (Auto) Baso % (Auto) Neut # (Auto) Lymph # (Auto) [place] # (Auto) Eos # (Auto) Baso # (Auto) ESR 12 PT 10.9 INR 1.01 Activated Clotting Time Sodium Potassium Chloride Carbon Dioxide Anion Gap BUN Creatinine Estimated Creat Clear Estimated GFR Est GFR ( Amer) Glucose POC Glucose Hemoglobin A1c Calcium Total Bilirubin AST ALT Alkaline Phosphatase Troponin I C-Reactive Protein NT-Pro-B Natriuret Pep Total Protein Albumin Globulin Albumin/Globulin Ratio Triglycerides Cholesterol LDL Cholesterol Direct VLDL Cholesterol HDL Cholesterol Cholesterol/HDL Ratio Lipase 116 TSH Thyroxine (T4) Urine Color Urine Appearance Urine pH Ur Specific [place] Urine Protein Urine Glucose (UA) Urine Ketones Urine Blood Urine Nitrate Urine Bilirubin Urine Urobilinogen Ur Leukocyte Esterase Urine RBC Urine WBC Ur Squamous Epith Cells Urine Bacteria SARS-CoV-2 (PCR) Influenza A Untype (PCR) Influenza Type B (PCR) 03/20/23 03/20/23 03/20/23 23:22 23:22 23:22 WBC 14.0 H RBC 5.44 Hgb 16.0 Hct 46.1 MCV 84.6 MCH 29.4 MCHC 34.7 RDW 12.9 Plt Count 223 MPV 9.3 Neut % (Auto) 62.4 Lymph % (Auto) 29.2 [place] % (Auto) 5.0 Eos % (Auto) 2.9 Baso % (Auto) 0.5 Neut # (Auto) 8.7 H Lymph # (Auto) 4.1 [place] # (Auto) 0.7 Eos # (Auto) 0.4 Baso # (Auto) 0.1 ESR PT INR Activated Clotting Time Sodium 133 L Potassium 4.3 Chloride 95 L Carbon Dioxide 27 Anion Gap 15.3 H BUN 14 Creatinine 0.60 L Estimated Creat Clear 239 Estimated GFR 144 Est GFR ( Amer) 175 Glucose 217 H POC Glucose Hemoglobin A1c 9.6 H Calcium 9.1 Total Bilirubin 0.4 AST 37 ALT 37 Alkaline Phosphatase 110 Troponin I < 0.01 C-Reactive Protein 3.9 NT-Pro-B Natriuret Pep < 20.0 Total Protein 7.9 Albumin 4.5 Globulin 3.4 H Albumin/Globulin Ratio 1.3 Triglycerides Cholesterol LDL Cholesterol Direct VLDL Cholesterol HDL Cholesterol Cholesterol/HDL Ratio Lipase TSH 3.54 Thyroxine (T4) 13.1 H Urine Color Urine Appearance Urine pH Ur Specific [place] Urine Protein Urine Glucose (UA) Urine Ketones Urine Blood Urine Nitrate Urine Bilirubin Urine Urobilinogen Ur Leukocyte Esterase Urine RBC Urine WBC Ur Squamous Epith Cells Urine Bacteria SARS-CoV-2 (PCR) Influenza A Untype (PCR) Influenza Type B (PCR) DS: Diagnosis Discharge Diagnosis (1) Angina at rest: Status: Acute Code(s): I20.8 - Other forms of angina pectoris (2) Diabetes type 2, uncontrolled: Status: Chronic Qualifiers: Glycemic state: with hyperglycemia Qualified Code(s): E11.65 - Type 2 diabetes mellitus with hyperglycemia (3) Obesity (BMI 30.0-34.9): Status: Chronic Code(s): E66.9 - Obesity, unspecified (4) Hyperlipidemia: Status: Chronic Code(s): E78.5 - Hyperlipidemia, unspecified Qualifiers: Hyperlipidemia type: mixed hyperlipidemia Qualified Code(s): E78.2 - Mixed hyperlipidemia Meds Home Medications and Allergies Home Medications Medication Instructions Recorded Confirmed Type metformin 500 mg tablet,extended 1,000 mg PO DAILY Diabetes 01/13/23 03/21/23 History release 24 hr aspirin 81 mg tablet,delayed 81 mg PO DAILY HEART HEALTH 03/21/23 03/21/23 History release blood sugar diagnostic (ReliOn #25 ea 03/21/23 Rx Prime Test Strips) blood sugar diagnostic (ReliOn #25 ea 03/21/23 Rx Prime Test Strips) blood-glucose meter (ReliOn Micro #1 ea 03/21/23 Rx Glucose Monitor) dapagliflozin propanediol 10 mg 10 mg PO DAILY Diabetes 03/21/23 03/21/23 History tablet (Farxiga) glipizide 10 mg tablet, extended 10 mg PO DAILY Diabetes 03/21/23 03/21/23 History release 24 hr lisinopril 2.5 mg tablet 2.5 mg PO DAILY Hypertension 03/21/23 03/21/23 History sitagliptin phosphate 100 mg 100 mg PO DAILY Diabetes 03/21/23 03/21/23 History tablet (Januvia) ticagrelor 90 mg tablet (Brilinta) 90 mg PO BID #180 tabs 03/21/23 Rx New Prescriptions to Start Prescriptions: blood sugar diagnostic [ReliOn Prime Test Strips] Regan,[place] blood sugar diagnostic [ReliOn Prime Test Strips] Regan,[place] blood-glucose meter [ReliOn Micro Glucose Monitor] Regan,[place] ticagrelor [Brilinta] Regan,[place] Allergies Allergy/AdvReac Type Severity Reaction Status Date / Time bee pollen Allergy Verified 03/17/23 11:08 Discharge Plan Disposition Patient Disposition: Home, Self-Care Condition: Good Follow up Plan Follow up with: Gail Stark PA [Primary Care Provider] - 1 week (Status post hospital discharge for chest pain after cardiac stent placed) Yamil Johnston MD [Staff Physician] - 04/01/23 9:30 am Prescriptions/Medication Reconciliation: New Brilinta 90 mg Tablet 90 mg PO BID Qty: 180 1RF (DME) ReliOn Prime Test Strips Strip See Rx Instructions .Route Qty: 25 0RF Rx Instructions: As directed (DME) blood-glucose meter [ReliOn Micro Glucose Monitor] Misc See Rx Instructions .Route Qty: 1 0RF Rx Instructions: As directed (DME) ReliOn Prime Test Strips Strip See Rx Instructions .Route Qty: 25 10RF Rx Instructions: As directed Continued metformin 500 mg tablet extended release 24 hr 1,000 mg PO DAILY glipizide 10 mg tablet extended release 24hr 10 mg PO DAILY aspirin 81 mg tablet,delayed release (DR/EC) 81 mg PO DAILY lisinopril 2.5 mg tablet 2.5 mg PO DAILY Januvia 100 mg tablet 100 mg PO DAILY Farxiga 10 mg tablet 10 mg PO DAILY Discontinued atorvastatin [Lipitor] 10 mg tablet 10 mg PO HS (DME) ReliOn Prime Test Strips Strip See Rx Instructions .ROUTE Rx Instructions: As directed (DME) Blood Glucose Test Strip See Rx Instructions .ROUTE Rx Instructions: As directed (DME) blood-glucose meter [Blood Glucose Monitoring] Kit See Rx Instructions .ROUTE [facility] Rx Instructions: As directed Problem Reconciliation Problems Reviewed?: Yes Patient Discharge Instructions ACTIVITY: Continue current activity DIET: continue same diet Patient Instructions: High Triglycerides, Type 2 Diabetes, Angina, Cardiac Catheterization, Surgical Site Infection, How to Quit Tobacco Products Print Language: Estonian Providers Primary Care Provider: Gail Stark Admit Provider: Brian Regan Attending Provider: Brian Regan
[2023-03-22 10:35] LABS: Homocyst(e)ine 13.5 umol/L (0.0-14.5)
--- NOTE | 2023-03-22 14:03 | CARE MANAGER ---
Patient called back for follow up from hospital discharge. He states he has his new medications and follow up appointments. He denies any questions or concerns. GENNY Cash
[2023-03-24 03:08] LABS: Anti-Thrombin III Antigen 82 % (72-124); Antithrombin Activity 90 % (75-135); Factor VIII Activity 96 % (56-140); Protein C Functional 103 % (73-180); Protein S, Free 96 % (61-136); Protein S, Total 82 % (60-150); Protein S-Functional 94 % (63-140)
[2023-03-25 07:08] LABS: Protein C Antigen 99 % (60-150)
[2023-04-20 23:27] LABS: Factor V Leiden Not Detected
== END 2023-03-21 19:19 | disposition home or self-care (01) ==
LOC: ER 23:42 → 2ND 03-21 02:11
PROVIDERS: Internal Medicine; Nurse Practitioner Family; Admitting Provider Internal Medicine; Emergency Provider Emergency Medicine; PCP Physician Assistant; Visit Provider Internal Medicine
DX: R07.9 Chest pain, unspecified (principal); E11.65 Type 2 diabetes mellitus with hyperglycemia; F17.210 Nicotine dependence, cigarettes, uncomplicated; E78.5 Hyperlipidemia, unspecified; I25.110 Atherosclerotic heart disease of native coronary artery with unstable angina pectoris; Z79.4 Long term (current) use of insulin; Z79.899 Other long term (current) drug therapy; I10 Essential (primary) hypertension; E87.1 Hypo-osmolality and hyponatremia
CPT/HCPCS: 36415; 71046; 71275; 80053; 80061; 81001; 81241; 82962; 83036; 83090; 83690; 83880; 84436; 84443; 84484; 85025; 85240; 85300; 85301; 85302; 85305; 85306; 85347; 85610; 85651; 86140; 86148; 87636; 92928; 93005; 93041; 93306; 93458; 99152; 99285; C1725; C1769; C1876; C9600; C9803; G0378; J1644; Q9967; U0003; U0005

== ENCOUNTER → 2023-03-24 13:54 | Outpatient (CLI) | payer MEDICAID, SELFPAY ==
--- NOTE | 2023-03-24 14:04 | US_ITS ---
FINAL REPORT CLINICAL HISTORY: decreased pulses, current smoker, HTN, DM, hyperlipidemia, bilateral claudication, bilateral rest pain, CAD. COMPARISON: None FINDINGS: ANKLE-BRACHIAL PRESSURE INDICES Pressure indices are as follows: RIGHT LOWER EXTREMITY: Ankle-brachial pressure index: 1.02 Comments: Normal LEFT LOWER EXTREMITY: Ankle-brachial pressure index: 1.08 Comments: Normal IMPRESSION: No evidence of significant obstructive peripheral vascular disease of the lower extremities Reviewed, Interpreted and Dictated by Erasmo Win MD Transcribed by Amber Unger Authenticated and . [facility]
== END ==
PROVIDERS: PCP Physician Assistant; Visit Provider Physician Assistant
DX: R09.89 Other specified symptoms and signs involving the circulatory and respiratory systems (principal)
CPT/HCPCS: 93923

== ENCOUNTER → 2023-03-29 13:03 | Outpatient (CLI) | payer MEDICAID, SELFPAY ==
[2023-03-29 14:11] LABS: Hematocrit 49.7 % (42.0-52.0); Hemoglobin 16.5 g/dL (14.1-18.0)
[2023-03-29 15:05] LABS: Blood Urea Nitrogen 7 mg/dl (9-20); Estimated Glomerular Filt Rate 144 ml/min (>60); GFR (African American) 175 ML/MIN (>60)
== END ==
PROVIDERS: PCP Physician Assistant; Visit Provider Internal Medicine
DX: I25.10 Atherosclerotic heart disease of native coronary artery without angina pectoris (principal)
CPT/HCPCS: 36415; 82565; 84520; 85014; 85018

== ENCOUNTER 2023-03-30 13:45 | Outpatient (RCR) | payer MEDICAID, SELFPAY | END 2023-05-06 14:00 | disposition home or self-care (01) | LOC: PT 13:45 | PROVIDERS: Visit Provider Internal Medicine | DX: I25.10 Atherosclerotic heart disease of native coronary artery without angina pectoris (principal); Z95.5 Presence of coronary angioplasty implant and graft ==

== ENCOUNTER 2023-06-29 12:22 | Observation (INO) | payer MEDICAID, SELFPAY ==
[2023-06-29 12:37] VITALS: BP 129/79; RESP 78; TEMP 36.6; O2SAT 100; BMI 30.7
--- NOTE | 2023-06-29 13:37 | EXP.HP ---
History of Present Illness *Admission Date: 06/29/23 *Reason for visit:: Chief complaint: Chest pain *History of present illness: This is a 48-year-old male that presents to [facility] Telemetry unit at the request of his risk management professional. He was evaluated by his risk management professional this morning in the office. The patient reported intermittent chest pain over several days not resolving with home medications. He reported a deep dull pain last night that transformed into sharp pain and radiated to his left arm. It became constant and he rated the pain as a 10 on a 1-10 pain scale. He reported associated dyspnea with exertion. He denied associated diaphoresis, nausea, vomiting, diarrhea or confusion. His past medical history is significant for coronary artery disease with previous stent deployment March 2023. He reports ongoing cigarette smoking since he was 9 years old. PFSH [facility] Medical History Coronary artery disease Diabetes mellitus Hypertension Tobacco use Surgical History H/O heart artery stent Hx of drainage of abscess Family History (Updated 06/29/23 @ 14:10 by Georgina Lares, GENNY) Other Hyperlipidemia Hypertension Social History (Updated 06/29/23 @ 14:11 by Georgina Lares, RN) Smoking Status: Current every day smoker tobacco type: cigarettes packs per day: 1 alcohol intake: never current occupational status: employed Travel in the last 8 weeks: None household members: none Review of Systems *Cardiovascular Cardiovascular: Reports chest pain, Reports chest pain at rest and Reports dyspnea on exertion *Respiratory Respiratory: Reports dyspnea on exertion and Denies hemoptysis Meds Home Medications and Allergies Home Medications Medication Instructions Recorded Confirmed Type aspirin 81 mg tablet,delayed 81 mg PO DAILY Heart Health 03/21/23 06/29/23 History release dapagliflozin propanediol 10 mg 10 mg PO DAILY Diabetes 03/21/23 06/29/23 History tablet (Farxiga) atorvastatin 10 mg tablet (Lipitor) 10 mg PO HS Cholesterol #90 tabs 03/31/23 06/29/23 Rx glipizide 10 mg tablet, extended 10 mg PO DAILY Diabetes #90 tabs 03/31/23 06/29/23 Rx release 24 hr metformin 500 mg tablet,extended 1,000 mg PO DAILY Diabetes #180 06/13/23 06/29/23 Rx release 24 hr tabs sitagliptin phosphate 100 mg 100 mg PO DAILY Diabetes #90 tabs 06/13/23 06/29/23 Rx tablet (Januvia) blood sugar diagnostic (ReliOn 06/29/23 06/29/23 History Prime Test Strips) blood-glucose meter (ReliOn Micro 06/29/23 06/29/23 History Glucose Monitor) lisinopril 2.5 mg tablet 2.5 mg PO DAILY High Blood Pressure 06/29/23 06/29/23 History metoprolol succinate 25 mg 25 mg PO DAILY High Blood Pressure 06/29/23 06/29/23 History tablet,extended release 24 hr (Toprol XL) ticagrelor 90 mg tablet (Brilinta) 90 mg PO BID Platelet Inhibitor 06/29/23 06/29/23 History New Prescriptions to Start Prescriptions: Allergies Allergy/AdvReac Type Severity Reaction Status Date / Time bee pollen Allergy Verified 06/29/23 10:51 Exam Data for Last 24 hours Vital signs and Labs for Last 24 Hours: Temp Resp BP Pulse Ox O2 Del Method 97.8 F 78 H 129/79 100 Room Air 06/29/23 12:37 06/29/23 12:37 06/29/23 12:37 06/29/23 12:37 06/29/23 12:37 I & O for Last 24 hours: Intake & Output 06/26/23 06/27/23 06/28/23 06/29/23 23:59 23:59 23:59 23:59 Weight 105.46 kg Constitutional Constitutional: no acute distress, obese and cooperative *Routine HEENT Exam Head: Present normocephalic and atraumatic Eye: Present EOMI ENT: Present mucous membranes moist *Routine Neck Exam Neck: Present supple, full ROM and trachea midline; Absent JVD or lymphadenopathy *Routine Respiratory Exam Respiratory: Present rhonchi, normal respiratory effort and symmetric chest movement *Routine Cardiovascular Exam Cardiovascular: Present RRR, Normal S1 and N
[2023-06-29 14:26] LABS: NT Pro Brain Natriuretic Pep. < 20.0 pg/mL (0-125)
--- NOTE | 2023-06-29 14:30 | HMH.PHAINT1 ---
Pharmacy Intervention Comments: MEDICATION RECONCILIATION COMPLETED ON PATIENT USING EXTERNAL FILL HISTORY FROM PHARMACY. -JAVY VELAZCO, [place]
[2023-06-29 15:24] VITALS: BP 121/71; PULSE 84; RESP 17; TEMP 36.4; O2SAT 97
[2023-06-29 16:00] VITALS: PULSE 80
[2023-06-29 16:41] LABS: POC Glucose,Bedside 151 (70-110)
--- NOTE | 2023-06-29 17:38 | PC.NURSE ---
Pt A&O x4. Denies any CP. VSS at this time. #20 placed to (L) wrist. FSBS obtained. 151. 2 Units humalog administered. No complaints stated at this time. call light within reach. Pt to be NPO at midnight.
[2023-06-29 20:00] VITALS: BP 100/61; PULSE 77; PULSE 80; RESP 18; TEMP 36.7; O2SAT 98
[2023-06-30] VITALS (19 sets, daily range): BP systolic 102–131; BP diastolic 54–76; PULSE 70–95; RESP 17–19; TEMP 36.6–37; O2SAT 92–99; BMI 31.8
[2023-06-30 01:25] LABS: POC Glucose,Bedside 189 (70-110)
[2023-06-30 06:00] LABS: POC Glucose,Bedside 137 (70-110)
--- NOTE | 2023-06-30 06:00 | ECG_ITS ---
APPROVED REPORT Exam: Resting ECG HR:72 bpm ECG Measurements Heart Rate 72 AXES [place] 162 P 64 QRSd 97 QRS 62 QT 384 T 69 QTc 409 Conclusion SINUS RHYTHM NORMAL ECG UNCONFIRMED REPORT Electronically signed by : Dusty Gómez MD 06/30/2023 17:16:55
[2023-06-30 06:39] LABS: Anion Gap 8.4 mEq/L (5-15); Blood Urea Nitrogen 8 mg/dl (9-20); Calcium 8.1 mg/dl (8.4-10.2); Carbon Dioxide 24 mmol/L (22.0-30.0); Chloride 106 mmol/L (98-107); Chol/HDL Ratio 6.1 (1-3.5); Cholesterol 92 mg/dl (140-200); Creatinine Clearance Estimated 235 mL/min (50-200); Estimated Glomerular Filt Rate 144 ml/min (>60); GFR (African American) 175 ML/MIN (>60); Glucose 131 mg/dl (74-100); HDL Cholesterol 15 mg/dl (40-60); Magnesium 1.8 mg/dl (1.6-2.3); Potassium 3.4 mmoL/L (3.5-5.1); Sodium 135 mmol/L (136-145); Triglycerides 93 mg/dl (30-150); VLDL Cholesterol 19 mg/dL (0-40)
[2023-06-30 06:40] LABS: Basophils # 0.1 K/mm3 (0-0.2); Basophils % 0.7 % (0.1-2.0); Eosinophils # 0.3 K/mm3 (0.0-0.4); Eosinophils % 2.6 % (0.1-12.0); Hematocrit 45.7 % (42.0-52.0); Hemoglobin 15.2 g/dL (14.1-18.0); Lymphocytes # 3.7 K/mm3 (0.7-4.5); Lymphocytes % 32.9 % (10-50); Mean Corpuscular HGB Conc 33.2 g/dL (31.8-35.4); Mean Corpuscular Hemoglobin 28.9 pg (27.0-31.2); Mean Platelet Volume 9.2 fl (7.4-10.4); Monocytes # 0.6 K/mm3 (0.1-1.0); Monocytes % 5.3 % (1.7-9.3); Neutrophils # 6.7 K/mm3 (1.8-7.8); Neutrophils % 58.5 % (37.0-80.0); Platelet Count 209 K/mm3 (142-424); Red Blood Count 5.26 M/mm3 (4.60-6.20); Red Cell Distribution Width 12.9 % (11.5-17.5); White Blood Count 11.4 K/mm3 (4.8-10.8)
[2023-06-30 06:50] LABS: Direct LDL Cholesterol 70.11 mg/dL (100-129)
--- NOTE | 2023-06-30 09:06 | CA_ITS ---
APPROVED REPORT EXAM: Limited 2D Echocardiogram Manufacturing Coordinator: JOSE Ji, RVS Ht: 6 ft 1 in Wt: 240lbs BSA: 2.33 BP: 129/79 mmHg Indications: cad, smoker,copd, cp, sob 2D Dimensions IVSd 0.89 cm LVEF (Visual) 63.30 % PWd 1.10 cm LVDd 5.85 cm LVDs 3.81 cm M-Mode Dimensions LA Diam 3.86 cm (1.9-4.0) Ao Diam 4.22 cm (2.0-3.7) EPSs 2.15 cm LV Diastology E Decel Time 187.00 (160-240 msec) E/A Ratio 1.65 MED E' 10.80 (< 7 cm/sec) MED A' 8.40 cm/s E'/MED E' Ratio 7.31 (>14) LAT E' 15.50 (<10 cm/sec) LAT A' 7.70 cm/s E/LAT E' Ratio 5.10 (>14) Mitral Valve MV A Velocity 48.00 (40-130 cm/s) E/A Ratio 1.65 MV Decel. Time 187.00 (160-240 ms) Other Information Study Quality: Fair Conclusion This is a limited TTE to evaluate for LVEF and wall motion in the setting of known CAD. Limited windows were obtained. The left ventricle appears normal in size and function. There is normal LV wall thickness. There is mild hypokinesis of the basal inferior and inferoseptal LV zelaya. LVEF is 55%. The right ventricle size is difficult to evaluate due to poor visualization of the RV free wall. Grossly, the RV function appears normal. Electronically signed by : Bree Stone MD 07/01/2023 00:25:31
[2023-06-30 09:55] LABS: Troponin I < 0.01 ng/ml (0.00-0.034)
--- NOTE | 2023-06-30 10:42 | IR_ITS ---
APPROVED REPORT Patient Location: [facility] Clinical Informatics Manager: ABHAY Ortega RT (R) PROCEDURES Selective coronary angiogram Intravascular ultrasound the proximal right coronary artery Drug-eluting stent deployment to the proximal right coronary Intravascular ultrasound to the ramus intermedius Drug-eluting stent deployment to the proximal ramus intermedius Intravascular ultrasound the proximal LAD INDICATION Unstable angina, Known coronary artery disease with history of coronary stenting the proximal ID, Angiographic ambiguity, MLA 3.1 mm??? in the right coronary artery, MLA of 3.3 mm??? in the ramus intermedius Informed consent was obtained prior to the procedure. COMPLICATIONS None Estimated Blood Loss: Less than 10 ml TECHNIQUE One percent lidocaine used to anesthetize the right anterior aspect of the wrist. The right radial artery was accessed via the Seldinger technique. A 6 Polish sheath was placed in the right radial artery. 2.5 mg of Verapamil, 800 mcg of nitroglycerin, 1mg Lidocaine and 5000 U Heparin were given through the arterial sheath. The papa catheter was also used to perform selective coronary angiography. At the end the diagnostic angiogram therapeutic heparin was administered giving a therapeutic ACT and the guide catheter was placed in the right coronary artery followed by Choice PT extra-support wire. Intravascular ultrasound probe was advanced which demonstrated an MLA of 3.1 mm??? in the proximal right coronary artery. A 2.75 x 18 mm Adrian frontier stent was deployed at 20 nichelle reducing the severe stenosis to 0%. OCTAVIANO-3 flow was present before and after the procedure. Following this the guide catheter was placed in the left main artery followed by Choice PT extra-support wire down the LAD. The MLA in the proximal LAD was greater than 4 mm???. There was excellent transitioning from the proximal portion of the LAD into the proximal portion of the stent. The stent was widely patent and appropriately sized. Following this the wire was pulled out of the LAD and placed into the ramus intermedius where intravascular ultrasound probe was advanced which demonstrated an MLA of 3.3 mm???. A 2.75 x 15 mm Adrian frontier stent was deployed at 18 nichelle reducing the severe stenosis to 0%. OCTAVIANO-3 flow was present before and after the procedure. After achieving excellent angiograph results the apparatus was removed sheath was removed and hemostasis was achieved and TR banding patient was transferred to the postop putting in stable condition ANGIOGRAPHIC RESULTS The left main artery Normal The left anterior descending artery Had a proximal angiographic ambiguous lesion just proximal to the stent. The stent itself was widely patent with excellent distal transitioning and no angiographic evidence of in-stent restenosis The circumflex artery Dominant giving rise to a large ramus intermedius which had a proximal 50 to 70% stenosis. The circumflex artery had additional 10 to 20% luminal irregularities The right coronary artery Is a codominant vessel and has proximal 60 to 70% concentric stenosis. RV marginal branch then has a 70% mid vessel stenosis. The CAMACHO ventriculogram reveals Not performed The left ventricular end-diastolic pressure Not measured IMPRESSION MLA of 3.1 mm??? in the proximal codominant right coronary artery with successful stenting reducing lesion to 0% with 1 drug-eluting stent MLA of 3.3 mm??? in the proximal ramus intermedius with successful stenting reducing the lesion to 0% with 1 drug-eluting stent Widely patent proximal LAD stent with mild disease proximal to the stent with an MLA greater than 4 mm??? and not requiring percutaneous revascularization PLAN 1. Dual antiplatelet therapy 2. LDL less than 55 to achiev
[2023-06-30 11:36] LABS: POC Glucose,Bedside 142 (70-110)
--- NOTE | 2023-06-30 11:42 | EXP.CARD.CON ---
History of Present Illness History of Present Illness Consult date: 06/30/23 Requesting physician: David Nixon Consult reason: chest pain Chief complaint: chest pain History of present illness: This is a 48-year-old white gentleman who presented to cardiology clinic yesterday with chest pain. It was felt that the patient was having unstable angina and was admitted to the hospital. He states for 2 days he was having a sharp pain in the center aspect of his chest. He states it radiated to his left arm. It was associated with shortness of breath. He denies any nausea or diaphoresis. He rated the pain a 10 out of 10 in intensity. The patient reports that the pain was worse with exertion. Nothing was really helping to improve the pain. He does have a known history of coronary artery disease with recent stenting in March 2023. The patient continues to smoke. He has historically been noncompliant with his medications. He states that he did take all of his medications up until yesterday. He denies any lower extremity edema. He denies any fever, chills, nausea, vomiting, diarrhea, PND or orthopnea. [facility] Disclaimer: The information contained in this section may have been updated after the patient was seen, as this information can be updated by other users. Medical History Coronary artery disease Diabetes mellitus Hyperlipidemia Hypertension Tobacco use Surgical History H/O heart artery stent Hx of drainage of abscess Family History (Updated 06/29/23 @ 14:10 by Georgina Lares RN) Other Hyperlipidemia Hypertension Social History (Updated 06/29/23 @ 14:11 by Georgina Lares RN) Smoking Status: Current every day smoker tobacco type: cigarettes packs per day: 1 alcohol intake: never current occupational status: employed Travel in the last 8 weeks: None household members: none Review of Systems Review of Systems Review of systems:: pertinent systems reviewed and negative unless documented below Constitutional Constitutional: Reports system reviewed and no additional complaints, except as documented Eyes Eyes: Reports system reviewed and no additional complaints, except as documented ENT Ears, Nose, Mouth, and Throat: Reports system reviewed and no additional complaints, except as documented *Cardiovascular Cardiovascular: Reports system reviewed and no additional complaints, except as documented, Reports chest pain, Reports chest pain at rest, Reports chest pain with activity, Reports dyspnea, Reports dyspnea on exertion and Reports radiating jaw, neck or arm pain *Respiratory Respiratory: Reports system reviewed and no additional complaints, except as documented, Reports dyspnea and Reports dyspnea on exertion *Gastrointestinal Gastrointestinal: Reports system reviewed and no additional complaints, except as documented *Genitourinary Genitourinary: Reports system reviewed and no additional complaints, except as documented *Musculoskeletal Musculoskeletal: Reports system reviewed and no additional complaints, except as documented Integumentary/Breasts Skin/Breast: Reports system reviewed and no additional complaints, except as documented *Neurologic Neurologic: Reports system reviewed and no additional complaints, except as documented Psychiatric Psychiatric: Reports system reviewed and no additional complaints, except as documented Endocrine Endocrine: Reports system reviewed and no additional complaints, except as documented Hematologic/Lymphatic Hematologic/Lymphatic: Reports system reviewed and no additional complaints, except as documented Allergic/Immunologic Allergic/Immunologic: Reports system reviewed and no additional complaints, except as documented Exam Data for Last 24 hours Vital signs and Labs for Last 24 Hours: Temp Pulse Resp BP Pulse Ox O2 Del Method 98.6 F 74 18 112/65 96 Room Air 06/30/23 11:31 06/30/23 11:31 06/30/23 11
--- NOTE | 2023-06-30 11:43 | PC.NURSE ---
Consent for Left cardiac catheterization signed and on chart.
--- NOTE | 2023-06-30 14:10 | EXP.PN ---
Subjective *Date: 06/30/23 *Time: 14:10 Interval history: The patient is seen and examined today. I am accompanied by nursing staff. He reports no chest pain through the night. He denies acute dyspnea or confusion. He is tolerating his medications with no adverse events. Nursing staff report that he remains afebrile with stable vital signs and saturating appropriately on room air. Exam Data for Last 24 hours Vital signs and Labs for Last 24 Hours: Temp Pulse Resp BP Pulse Ox O2 Del Method 98.6 F 74 18 112/65 96 Room Air 06/30/23 11:31 06/30/23 11:31 06/30/23 11:31 06/30/23 11:31 06/30/23 11:31 06/30/23 11:31 Laboratory Results - last 24 hr 06/29/23 13:51: NT-Pro-B Natriuret Pep < 20.0 06/29/23 16:28: POC Glucose 151 H 06/29/23 20:46: POC Glucose 189 H 06/30/23 05:47: WBC 11.4 H, RBC 5.26, Hgb 15.2, Hct 45.7, MCV 87.0, MCH 28.9, MCHC 33.2, RDW 12.9, Plt Count 209, MPV 9.2, Neut % (Auto) 58.5, Lymph % (Auto) 32.9, [place] % (Auto) 5.3, Eos % (Auto) 2.6, Baso % (Auto) 0.7, Neut # (Auto) 6.7, Lymph # (Auto) 3.7, [place] # (Auto) 0.6, Eos # (Auto) 0.3, Baso # (Auto) 0.1, Sodium 135 L, Potassium 3.4 L, Chloride 106, Carbon Dioxide 24, Anion Gap 8.4, BUN 8 L, Creatinine 0.60 L, Estimated Creat Clear 235, Estimated GFR 144, Est GFR ( Amer) 175, Glucose 131 H, Calcium 8.1 L, Magnesium 1.8, Triglycerides 93, Cholesterol 92 L, LDL Cholesterol Direct 70.11 L, VLDL Cholesterol 19, HDL Cholesterol 15 L, Cholesterol/HDL Ratio 6.1 H 06/30/23 05:53: POC Glucose 137 H 06/30/23 09:25: Troponin I < 0.01 06/30/23 11:13: POC Glucose 142 H I & O for Last 24 hours: Intake & Output 06/27/23 06/28/23 06/29/23 06/30/23 23:59 23:59 23:59 23:59 Intake Total 625 / 625 0 / 0 Output Total 0 / 0 0 / 0 Balance 625 / 625 0 / 0 Weight 105.46 kg 109.089 kg Constitutional Constitutional: no acute distress and cooperative *Routine HEENT Exam Head: Present normocephalic Eye: Present EOMI and PERRL *Routine Respiratory Exam Respiratory: Present rhonchi, normal respiratory effort and symmetric chest movement *Routine Cardiovascular Exam Cardiovascular: Present RRR, Normal S1 and Normal S2 Assessment and Plan *Assessment and plan (1) Unstable angina: Status: Acute Category: Medical Code(s): I20.0 - Unstable angina (2) Coronary artery disease: Status: Chronic Qualifiers: Coronary Disease-Associated Artery/Lesion type: [place] artery [place] vs. transplanted heart: [place] heart Associated angina: without angina Qualified Code(s): I25.10 - Atherosclerotic heart disease of [place] coronary artery without angina pectoris Category: Medical Code(s): I25.10 - Atherosclerotic heart disease of [place] coronary artery without angina pectoris (3) Diabetes mellitus: Status: Chronic Qualifiers: Diabetes mellitus complication status: with other specified complication Diabetes mellitus [employer] insulin use: unspecified [employer] insulin use status Diabetes mellitus type: other specified (including SUKI) Qualified Code(s): E13.69 - Other specified diabetes mellitus with other specified complication Category: Medical Code(s): E11.9 - Type 2 diabetes mellitus without complications (4) Hypertension: Status: Acute Qualifiers: Hypertension type: primary hypertension Qualified Code(s): I10 - Essential (primary) hypertension Category: Medical Code(s): I10 - Essential (primary) hypertension (5) Tobacco use: Status: Chronic Category: Social Hx Code(s): Z72.0 - Tobacco use Plan Unstable angina Coronary artery disease Telemetry monitoring Left heart cath 03/22/2023 Echocardiogram 03/22/2023 Cardiology consult reviewed Plans for cardiac cath 06/30/2023 Antiplatelet therapy P2 Y12 inhibitor therapy Statin therapy Beta-jarrod therapy ARB therapy NTG as needed ECG as needed Fasting lipid panel Parentall
[2023-06-30 16:30] LABS: POC Glucose,Bedside 103 (70-110)
--- NOTE | 2023-06-30 17:16 | EXP.DC.SUM ---
General Admission date:: 06/29/23 Discharge date: 06/30/23 HPI HPI HPI: This is a 48-year-old male that presents to [facility] Telemetry unit at the request of his local company hazmat driver. He was evaluated by his local company hazmat driver this morning in the office. The patient reported intermittent chest pain over several days not resolving with home medications. He reported a deep dull pain last night that transformed into sharp pain and radiated to his left arm. It became constant and he rated the pain as a 10 on a 1-10 pain scale. He reported associated dyspnea with exertion. He denied associated diaphoresis, nausea, vomiting, diarrhea or confusion. His past medical history is significant for coronary artery disease with previous stent deployment March 2023. He reports ongoing cigarette smoking since he was 9 years old. Hospital Course Hospital Course Hospital Course: The patient was admitted to the telemetry unit with cardiology consultation. He was made n.p.o. past midnight for anticipated cardiac catheterization. Problems addressed as follows: Unstable angina Coronary artery disease Telemetry monitoring Left heart cath 03/22/2023 Echocardiogram 03/22/2023 Cardiology consult reviewed Plans for cardiac cath 06/30/2023 Antiplatelet therapy P2Y12 inhibitor therapy Statin therapy Beta-jarrod therapy ARB therapy NTG as needed ECG as needed Fasting lipid panel Parentally administered controlled substance for comfort care Trending labs and inflammatory markers Diabetes Routine blood sugar monitoring Basal insulin therapy Sliding scale insulin therapy SGLT2 inhibitor therapy Carbohydrate controlled diet when taking p.o. Hypertension Routine blood pressure monitoring Beta-jarrod therapy ARB therapy Tobacco dependence Tobacco cessation education Nicotine replacement therapy The patient underwent cardiac catheterization with identified need for further stent deployment. He was observed post catheterization with no further chest pain reported. He understands the importance of complete tobacco cessation to improve his health. He inquired to be discharged home. He will be discharged home with dual antiplatelet therapy, high-dose statin therapy, beta-jarrod therapy and ARB therapy to assist with his cardiovascular status. He has been advised to routinely monitor his blood sugars and improve blood sugar control. He understands to follow-up with his PCP in 1 week and cardiology as scheduled. I spent 35 minutes in [id number] time with the patient and nursing staff concerning the discharge process. We discussed the admitting diagnoses and hospital course. We discussed identified improvement and the patient's desire to be discharged. We reviewed inpatient studies and imaging. The patient voiced understanding on the importance of follow-up with his primary care provider and local company hazmat driver. The patient plans to be compliant with the medication regimen prescribed and follow-up appointments. He understands that he can return to the emergency department with any sudden changes or concerns. Exam Data for Last 24 hours Vital signs and Labs for Last 24 Hours: Temp Pulse Resp BP Pulse Ox O2 Del Method 98.1 F 77 18 131/73 99 Room Air 06/30/23 15:35 06/30/23 16:05 06/30/23 16:05 06/30/23 16:05 06/30/23 16:05 06/30/23 17:00 Laboratory Results - last 24 hr 06/29/23 20:46: POC Glucose 189 H 06/30/23 05:47: WBC 11.4 H, RBC 5.26, Hgb 15.2, Hct 45.7, MCV 87.0, MCH 28.9, MCHC 33.2, RDW 12.9, Plt Count 209, MPV 9.2, Neut % (Auto) 58.5, Lymph % (Auto) 32.9, [place] % (Auto) 5.3, Eos % (Auto) 2.6, Baso % (Auto) 0.7, Neut # (Auto) 6.7, Lymph # (Auto) 3.7, [place] # (Auto) 0.6, Eos # (Auto) 0.3, Baso # (Auto) 0.1, Sodium 135 L, Potassium 3.4 L, Chloride 106, Carbon Dioxide 24, Anion Gap 8.4, BUN 8 L, Creatinine 0.60 L, Estimated Creat Clear 235, Estimated GFR 144, Est GFR ( Amer) 175, Glucose 131 H, Calcium 8.1 L, Magnesium 1.8, Trig
--- NOTE | 2023-06-30 18:12 | PC.NURSE ---
Neighbor will take pt home.
--- NOTE | 2023-07-01 10:44 | P.CONPHA_ITS ---
[facility] [employer]ificial [employer] Supervisor Discharge Med Engine Maintenance Mechanic: Kai Cat has received discharge medication counseling on the following medications: ATORVASTATIN 80 MG HS IRBESARTAN 75 MG DAILY ASPIRIN 81 MG DAILY BRILINTA 90 MG BID METOPROLOL SUCCINATE 25 MG DAILY LEFT AFTER HOURS. ATORVASTATIN AND IRBESARTAN ESCRIBED TO CASS.
--- NOTE | 2023-07-01 14:16 | CARE MANAGER ---
Spoke with patient related to hospital discharge. He states he feels better. He picked up his medication and is aware of follow up appointments. Denies any questions or concerns. GENNY Cash
== END 2023-06-30 19:00 | disposition home or self-care (01) ==
PROVIDERS: Internal Medicine; Nurse Practitioner Family; Admitting Provider Family Medicine; PCP Physician Assistant; Visit Provider Family Medicine
DX: I25.110 Atherosclerotic heart disease of native coronary artery with unstable angina pectoris (principal); I10 Essential (primary) hypertension; F17.210 Nicotine dependence, cigarettes, uncomplicated; E78.2 Mixed hyperlipidemia; Z79.02 Long term (current) use of antithrombotics/antiplatelets; E11.9 Type 2 diabetes mellitus without complications; Z79.899 Other long term (current) drug therapy; Z79.84 Long term (current) use of oral hypoglycemic drugs
CPT/HCPCS: 36415; 80048; 80061; 82962; 83735; 83880; 84484; 85025; 92928; 92978; 92979; 93005; 93308; 93454; 99152; 99153; C1725; C1760; C1769; C1876; C9600; G0378; J1644; Q9967

== ENCOUNTER → 2023-07-05 12:00 | Outpatient (CLI) | payer MEDICAID, SELFPAY ==
[2023-07-05 13:35] LABS: Hematocrit 55.9 % (42.0-52.0); Hemoglobin 17.8 g/dL (14.1-18.0)
[2023-07-05 14:31] LABS: Blood Urea Nitrogen 9 mg/dl (9-20); Estimated Glomerular Filt Rate 144 ml/min (>60); GFR (African American) 175 ML/MIN (>60)
== END ==
PROVIDERS: PCP Internal Medicine; Visit Provider Family Medicine
DX: I10 Essential (primary) hypertension (principal)
CPT/HCPCS: 36415; 82565; 84520; 85014; 85018

== ENCOUNTER 2023-11-09 23:40 | Emergency (ER) | payer MEDICAID, SELFPAY ==
--- NOTE | 2023-11-09 23:38 | ECG_ITS ---
APPROVED REPORT Exam: Resting ECG HR:98 bpm ECG Measurements Heart Rate 98 AXES [place] 147 P 63 QRSd 94 QRS 26 QT 340 T 71 QTc 395 Conclusion SINUS RHYTHM Isolated q in III probable normal variant BORDERLINE ECG UNCONFIRMED REPORT Electronically signed by : Dusty Gómez MD 11/12/2023 06:39:30
[2023-11-09 23:41] VITALS: BP 154/91; PULSE 98; RESP 20; TEMP 36.7; O2SAT 97; BMI 30.9
--- NOTE | 2023-11-09 23:43 | HMH.EDGENADL ---
Discharge Plan Disposition Patient Disposition: Home, Self-Care Prescriptions Prescriptions: New famotidine [Pepcid] 20 mg tablet 20 mg PO DAILY Qty: 30 0RF No Action insulin glargine 100 unit/mL (3 mL) insulin pen 10 unit SQ HS Qty: 15 2RF (DME) pen needle, diabetic [Comfort EZ Pen [place]] 32 gauge x 5/16 needle See Rx Instructions .Route Qty: 100 0RF Rx Instructions: As directed ranolazine 1,000 mg tablet extended release 12 hr 1,000 mg PO BID Qty: 180 3RF nitroglycerin 0.4 mg tablet, sublingual 0.4 mg sublingual Q5-15M PRN (Reason: chest pain) Qty: 30 1RF Rx Instructions: do not exceed 3 doses per episode metoprolol succinate 50 mg tablet extended release 24 hr 50 mg PO DAILY Qty: 90 3RF metformin 500 mg tablet extended release 24 hr 1,000 mg PO DAILY Qty: 180 0RF Farxiga 10 mg tablet 10 mg PO DAILY Qty: 90 0RF Januvia 100 mg tablet 100 mg PO DAILY Qty: 90 0RF irbesartan 75 mg tablet 75 mg PO DAILY Qty: 90 0RF atorvastatin 80 mg tablet See Rx Instructions .ROUTE .COMPLEX Qty: 90 0RF Dose Instruction: TAKE 1 TABLET BY MOUTH EVERY DAY AT BEDTIME Rx Instructions: TAKE 1 TABLET BY MOUTH EVERY DAY AT BEDTIME glipizide 10 mg tablet extended release 24hr 10 mg PO DAILY Qty: 90 0RF aspirin 81 mg tablet,delayed release (DR/EC) 81 mg PO DAILY (DME) blood-glucose meter [ReliOn Micro Glucose Monitor] Misc See Rx Instructions .Route Rx Instructions: As directed (DME) ReliOn Prime Test Strips Strip See Rx Instructions .Route Rx Instructions: As directed Brilinta 90 mg tablet 90 mg PO BID Referrals Follow up/Referrals: Provider,Referral, MD [Primary Care Provider] - See instructions Activity Restrictions/Add. Instructions Additional Instructions/Restrictions: Please follow-up with your primary care provider, with cardiology and GI. Please return to the emergency department if you develop any new or worsening symptoms or become concerned for your health. Clinical Impressions Clinical Impression: Chest pain Qualifiers: Chest pain type: unspecified Qualified Code(s): R07.9 - Chest pain, unspecified Discharge ED Provider: Pickens,Geovani General Adult HPI General Chief complaint: Chest Pain Stated complaint: chest pain Time Seen by Provider: 11/09/23 23:41 History of Present Illness HPI narrative: 48-year-old male, history of coronary artery disease with multiple stents, hypertension, hyperlipidemia, insulin-dependent diabetes presents with chest pain. He reports chest pain is ongoing for the last week. Tonight he took some nitroglycerin and it did not improve. He reports that he feels smothered at home when he lays down. He reports the pain has been consistent for the last week it is not significantly different tonight, he reports he just could not take it any longer. He sees Dr. Johnston. Related Data Home Medications Medication Instructions Recorded Confirmed aspirin 81 mg tablet,delayed 81 mg PO DAILY Heart Health 03/21/23 10/13/23 release blood sugar diagnostic (ReliOn 06/29/23 10/13/23 Prime Test Strips) blood-glucose meter (ReliOn Micro 06/29/23 10/13/23 Glucose Monitor) ticagrelor 90 mg tablet (Brilinta) 90 mg PO BID Platelet Inhibitor 06/29/23 10/13/23 Previous Rx's Medication Instructions Recorded insulin glargine 100 unit/mL (3 10 unit (0.1 mL) SQ HS #15 mL 07/05/23 mL) subcutaneous pen pen needle, diabetic 32 gauge x #100 ea 07/05/2302/15 (Comfort EZ Pen [place]) dapagliflozin propanediol 10 mg 10 mg PO DAILY Diabetes #90 tabs 09/30/23 tablet (Farxiga) irbesartan 75 mg tablet 75 mg PO DAILY #90 tabs 09/30/23 metformin 500 mg tablet,extended 1,000 mg PO DAILY Diabetes #180 09/30/23 release 24 hr tabs sitagliptin phosphate 100 mg 100 mg PO DAILY Diabetes #90 tabs 09/30/23 tablet (Januvia) metoprolol succinate 50 mg 50 mg PO DAILY High Blood Pressure 10/13/23 tablet,extended release 24 hr #90 tabs nitroglycerin 0.4 mg sublingual 0.4 mg sublingual Q5-15M PRN chest 10/13/23 tablet pain #30 tabs ranolazine 1,000 mg 1,000 mg PO BID #180 tabs 10/13/23 tablet,extended release,12 hr atorvastatin 80 mg tablet See Rx Instructions .Route 10/24/23 .COMPLEX #90 tabs glipizide 10 mg tablet, extended 10 mg PO DAILY Diabetes #90 tabs 11/08/23 release 24 hr famotidine 20 mg tablet (Pepcid) 20 mg PO DAILY #30 tabs 11/10/23 Allergies Allergy/AdvReac Type Severity Reaction Status Date / Time bee pollen Allergy Verified 10/13/23 10:00 [facility] Disclaimer: The information contained in this section may have been updated after the patient was seen, as this information can be updated by other users. Medical History Atypical angina Coronary artery disease Diabetes mellitus GERD (gastroesophageal reflux disease) Hyperlipidemia Hypertension Myocardial infarction Tobacco use Surgical History H/O heart artery stent Hx of drainage of abscess Family History Other Hyperlipidemia Hypertension Social History Smoking Status: Current every day smoker tobacco type: cigarettes packs per day: 1 alcohol intake: never current occupational status: employed Travel in the last 8 weeks: None household members: none ROS Obtained: Yes All systems reviewed & no additional complaints except as documented Physical Exam General General appearance: alert and in no apparent distress Head Head exam: atraumatic and normocephalic Eye Eye exam: Present normal appearance, PERRL and EOMI ENT ENT exam: Present normal oropharynx and normal external ear exam Neck Neck exam: Present normal inspection and full ROM Chest Chest inspection: Present normal inspection and symmetric chest wall rise; Absent tenderness Respiratory Respiratory exam: Present normal lung sounds bilaterally; Absent respiratory distress Cardiovascular Cardiovascular exam: Present normal rhythm and tachycardia Abdominal Exam Abdominal exam: Present soft; Absent distention, tenderness or guarding Extremities Exam Extremities exam: Present normal inspection; Absent edema or joint swelling Back Exam Back exam: Present normal inspection; Absent tenderness Neurological Exam Neurological exam: Present alert and oriented X3; Absent motor sensory deficit Psychiatric Psychiatric exam: Present normal affect and normal mood Skin Skin exam: Present warm, dry and normal color Lymphatic Lymphatic Findings: no adenopathy Medical Decision Making Medical Records Medical records reviewed: Yes I reviewed the patient's medical records. [place] Inquiry Pt receiving controlled substance: No [place] was queried for this patient: No Vital Signs: 11/09/23 23:41 02/07/24 23:48 11/10/23 00:00 Temperature 98.1 F Temperature Source Oral Pulse Rate 98 H 95 H Pulse Rate [Right] 98 H Respiratory Rate 20 30 H Blood Pressure 135/89 Blood Pressure [Right Arm] 154/91 H Blood Pressure Mean [Right Arm] 112 Blood Pressure Source [Right Arm] Automatic Cuff Blood Pressure Position [Right Arm] Sitting 02 Sat by Pulse Oximetry 97 93 L Oxygen Delivery Method Room Air 11/10/23 00:22 11/10/23 00:30 Temperature Temperature Source Pulse Rate 106 H Pulse Rate [Right] Respiratory Rate 27 H 25 H Blood Pressure 120/83 129/73 Blood Pressure [Right Arm] Blood Pressure Mean [Right Arm] Blood Pressure Source [Right Arm] Blood Pressure Position [Right Arm] 02 Sat by Pulse Oximetry 94 L Oxygen Delivery Method Lab Data Lab results reviewed: Yes I reviewed the patient's lab results. Lab Results 11/09/23 23:50: WBC 13.1 H, RBC 5.59, Hgb 17.2, Hct 50.2, MCV 89.9, MCH 30.7, MCHC 34.2, RDW 13.0, Plt Count 214, MPV 9.6, Neut % (Auto) 63.3, Lymph % (Auto) 28.6, [place] % (Auto) 3.8, Eos % (Auto) 3.2, Baso % (Auto) 1.1, Neut # (Auto) 8.3 H, Lymph # (Auto) 3.8, [place] # (Auto) 0.5, Eos # (Auto) 0.4, Baso # (Auto) 0.1, D-Dimer 0.29, Sodium 133 L, Potassium 4.0, Chloride 97 L, Carbon Dioxide 22, Anion Gap 18.0 H, BUN 8 L, Creatinine 0.60 L, Estimated Creat Clear 228, Estimated GFR 144, Est GFR ( Amer) 175, Glucose 352 H, Calcium 8.8, Total Bilirubin 0.4, AST 29, ALT 30, Alkaline Phosphatase 136 H, Troponin I < 0.01, Total Protein 7.2, Albumin 4.1, Globulin 3.1, Albumin/Globulin Ratio 1.3 11/09/23 23:50 11/09/23 23:50 Orders (Tests/Meds): ED MEDICATIONS Generic Name Dose Route Start Last Admin Trade Name Ethel PRN Reason Stop Dose Admin Nitroglycerin 0.4 mg 11/09/23 23:49 11/10/23 00:22 Nitroglycerin 0.4mg Sl Tablet SL 12/09/23 23:48 0.4 mg Q5MINP PRN Administration Chest Pain Discontinued Medications Generic Name Dose Route Start Last Admin Trade Name Johnq PRN Reason Stop Dose Admin Acetaminophen 1,000 mg 11/09/23 23:49 11/10/23 00:04 Acetaminophen 500mg Tab PO 11/09/23 23:50 1,000 mg ONCE ONE Administration Aspirin 325 mg 11/09/23 23:49 11/10/23 00:04 Aspirin 325mg Tablet PO 11/09/23 23:50 325 mg ONCE ONE Administration Lidocaine HCl 15 ml 11/10/23 00:34 11/10/23 00:41 Lidocaine 2% Viscous Aishwarya 15ml Udc PO 11/10/23 00:35 15 ml ONCE ONE Administration ORDERS Category Date Time Status CXR --portable [XR chest portable] Stat Exams 11/09/23 23:50 Completed CBC w/Auto Diff [Complete Blood Count Auto Diff] Stat Lab 11/09/23 23:50 Completed CMP [Comprehensive Metabolic Panel] Stat Lab 11/09/23 23:50 Completed D-Dimer Stat Lab 11/09/23 23:50 Completed Troponin I Q3H Lab 11/09/23 23:50 Completed Troponin I Q3H Lab 11/10/23 02:50 Ordered ECG Data Tracing #1: I reviewed this ECG and interpreted as documented below: Sinus rhythm, rate of 98, no concerning ST changes. Insignificant Q waves noted in the inferior leads ECG initial impression date: 11/09/23 ECG initial impression time: 23:38 HEART Score History (anamnesis): Slightly suspicious ECG: Non-specific disturbance Age: 45-65 years Risk factors: Atherosclerosis history Troponin: </= normal limit HEART Score: 4 Medical Decision Narrative: 48-year-old male, presentation complicated by history of coronary artery disease status post multiple stents, hypertension, hyperlipidemia, insulin-dependent diabetes presents with 1 week of ongoing central chest pain and smothering sensation at home. History was obtained via conversation with patient, family, chart review. On arrival, patient is afebrile, mildly tachycardic, satting appropriately on room air, alert and oriented, moving all extremities spontaneously. Full physical exam performed and significant for no significant lower extremity edema, clear lungs bilaterally Differential includes but is not limited to ACS, PE, pneumonia, musculoskeletal chest pain, GERD. Patient was given full dose aspirin, sublingual nitro, Tylenol for symptomatic management and correction of underlying abnormalities. Workup initiated including CBC CMP EKG chest x-ray troponin D-dimer. D-dimer ordered as we are unable to PERC patient out given he is tachycardic. On re-evaluation, patient [remains afebrile, HD stable.] Patient reports that his chest pain was unchanged with nitroglycerin x 2. Patient was given viscous lidocaine and reports significant improvement after viscous lidocaine. Laboratory workup independently interpreted by me and significant for initial troponin undetectably low, D-dimer negative, no significant electrolyte derangement. Mild leukocytosis noted. Imaging independently interpreted by me and significant for no pneumothorax. See radiology read for full review of final results. Given patient history, exam and workup, patient's presentation most likely represents noncardiac chest pain though diagnostic uncertainty remains. Chest pain has been ongoing for 1 week and has been stable. Nitro has made no difference, but patient felt significantly better after viscous lidocaine. Initial troponin negative. Given the duration of patient's symptoms, I think a single troponin is likely sufficient. EEG did not show any acute ischemic changes. I had extensive discussion with patient regarding his presentation. I discussed with him the option of staying for multiple troponins, for admission for inpatient cardiac workup, etc. Utilizing shared decision-making, we elected to discharge the patient with instructions to follow-up with PCP cardiology and GI. Patient discharged with prescription for Pepcid. Return precautions given. Procedures Risk/Benefits of Procedure(s) Were Explained: Yes Critical Care Critical Care Time Critical Care Time: No
[2023-11-09 23:48] VITALS: PULSE 98
--- NOTE | 2023-11-09 23:50 | XR_ITS ---
PROCEDURE INFORMATION: Exam: XR Chest Exam date and time: 11/09/2023 11:51 PM Age: 48 years old Clinical indication: Pain; Chest pressure; Additional info: Chest pain TECHNIQUE: Imaging protocol: Radiologic exam of the chest. Views: 1 view. COMPARISON: CT ANGIO CHEST PE PROTOCOL 03/21/2023 12:29 AM FINDINGS: Lungs: Faint left basilar airspace disease. Pleural spaces: Unremarkable. No pleural effusion. No pneumothorax. Heart/Mediastinum: Unremarkable. No cardiomegaly. Bones/joints: Unremarkable. IMPRESSION: Faint left basilar airspace disease may represent pneumonia.
[2023-11-09 23:57] LABS: Basophils # 0.1 K/mm3 (0-0.2); Basophils % 1.1 % (0.1-2.0); Eosinophils # 0.4 K/mm3 (0.0-0.4); Eosinophils % 3.2 % (0.1-12.0); Hematocrit 50.2 % (42.0-52.0); Hemoglobin 17.2 g/dL (14.1-18.0); Lymphocytes # 3.8 K/mm3 (0.7-4.5); Lymphocytes % 28.6 % (10-50); Mean Corpuscular HGB Conc 34.2 g/dL (31.8-35.4); Mean Corpuscular Hemoglobin 30.7 pg (27.0-31.2); Mean Corpuscular Volume 89.9 fl (80-94); Mean Platelet Volume 9.6 fl (7.4-10.4); Monocytes # 0.5 K/mm3 (0.1-1.0); Monocytes % 3.8 % (1.7-9.3); Neutrophils # 8.3 K/mm3 (1.8-7.8); Neutrophils % 63.3 % (37.0-80.0); Platelet Count 214 K/mm3 (142-424); Red Blood Count 5.59 M/mm3 (4.60-6.20); White Blood Count 13.1 K/mm3 (4.8-10.8)
[2023-11-10] VITALS: BP 135/89; PULSE 95; RESP 30; O2SAT 93
[2023-11-10] MEDS: ACETAMINOPHEN 500MG TAB 1000 MG PO (00:04)
[2023-11-10] MEDS: ASPIRIN 325MG TABLET 325 MG PO (00:04)
[2023-11-10] MEDS: NITROGLYCERIN 0.4MG SL TABLET 0.400000000000000022 MG SL ×2 (00:04→00:22)
--- NOTE | 2023-11-10 00:04 | PC.NURSE ---
pt reports left chest pain, squeezing, rates 10/10 prior to Nitro.
[2023-11-10 00:05] LABS: Alanine Aminotransferase 30 U/L (12-78); Albumin Level 4.1 g/dl (3.5-5.0); Albumin/Globulin Ratio 1.3 (1.1-1.8); Alkaline Phosphatase 136 U/L (38-126); Aspartate Amino Transferase 29 U/L (17-59); Bilirubin,Total 0.4 mg/dl (0.2-1.3); Blood Urea Nitrogen 8 mg/dl (9-20); Calcium 8.8 mg/dl (8.4-10.2); Carbon Dioxide 22 mmol/L (22.0-30.0); Chloride 97 mmol/L (98-107); Creatinine Clearance Estimated 228 mL/min (50-200); Estimated Glomerular Filt Rate 144 ml/min (>60); GFR (African American) 175 ML/MIN (>60); Globulin 3.1 g/dL (1.3-3.2); Glucose 352 mg/dl (74-100); Sodium 133 mmol/L (136-145); Total Protein,Serum 7.2 g/dl (6.3-8.2)
[2023-11-10 00:07] LABS: D-Dimer 0.29 ug/mL (0.0-0.5)
[2023-11-10 00:21] LABS: Troponin I < 0.01 ng/ml (0.00-0.034)
--- NOTE | 2023-11-10 00:21 | PC.NURSE ---
pt reports no change in Chest pain after first nitro, still rates 10
[2023-11-10 00:22] VITALS: BP 120/83; RESP 27
[2023-11-10 00:30] VITALS: BP 129/73; PULSE 106; RESP 25; O2SAT 94
[2023-11-10] MEDS: LIDOCAINE 2% VISCOUS SOL 15ML UDC 15 ML PO (00:41)
--- NOTE | 2023-11-10 00:50 | PC.NURSE ---
pt reports no pain after lidocaine. Md aware and at bedside talking with pt
[2023-11-10 01:04] VITALS: BP 129/73; PULSE 97; RESP 24; TEMP 36.7; O2SAT 92
== END 2023-11-10 01:05 | disposition home or self-care (01) ==
PROVIDERS: Emergency Provider Emergency Medicine; PCP Physician Assistant
DX: R07.9 Chest pain, unspecified (principal); I25.119 Atherosclerotic heart disease of native coronary artery with unspecified angina pectoris; I10 Essential (primary) hypertension; E78.5 Hyperlipidemia, unspecified; E11.9 Type 2 diabetes mellitus without complications; K21.9 Gastro-esophageal reflux disease without esophagitis; I25.2 Old myocardial infarction; F17.210 Nicotine dependence, cigarettes, uncomplicated
CPT/HCPCS: 71045; 80053; 84484; 85025; 85378; 93005; 99285

== ENCOUNTER 2024-03-21 08:47 | Emergency (ER) | payer MEDICAID, SELFPAY ==
[2024-03-21] VITALS (9 sets, daily range): BP systolic 114–126; BP diastolic 73–87; PULSE 71–103; RESP 17–25; TEMP 36.7–36.9; O2SAT 93–97; BMI 30.9
--- NOTE | 2024-03-21 08:45 | ECG_ITS ---
APPROVED REPORT Exam: Resting ECG HR:94 bpm ECG Measurements Heart Rate 94 AXES MD 139 P 66 QRSd 97 QRS 45 QT 354 T 76 QTc 406 Conclusion SINUS RHYTHM POSSIBLE INFERIOR MYOCARDIAL INFARCTION , PROBABLY OLD [30 ms Q WAVE IN II/aVF] BORDERLINE ECG Electronically signed by : MYRNA VERA, 03/21/2024 15:17:59
--- NOTE | 2024-03-21 08:49 | XR_ITS ---
FINAL REPORT CLINICAL HISTORY: Precordial chest pain COMPARISON: 11/09/2023 FINDINGS: No acute pulmonary opacity is present. There is no evidence of effusion or pneumothorax. Mediastinum is unremarkable. Heart size is normal. IMPRESSION: No acute abnormality. Reviewed, Interpreted and Dictated by Wang Barr MD Transcribed by Amber Unger Authenticated and [facility]
--- NOTE | 2024-03-21 08:51 | ED_ITS ---
Discharge Plan Disposition Patient Disposition: Home, Self-Care Prescriptions Prescriptions: No Action (DME) pen needle, diabetic [Comfort EZ Pen [place]] 32 gauge x 5/16 needle See Rx Instructions .Route Qty: 100 0RF Rx Instructions: As directed ranolazine 1,000 mg tablet extended release 12 hr 1,000 mg PO BID Qty: 180 3RF nitroglycerin 0.4 mg tablet, sublingual 0.4 mg sublingual Q5-15M PRN (Reason: chest pain) Qty: 30 1RF Rx Instructions: do not exceed 3 doses per episode metoprolol succinate 50 mg tablet extended release 24 hr 50 mg PO DAILY Qty: 90 3RF metformin 500 mg tablet extended release 24 hr 1,000 mg PO DAILY Qty: 180 0RF Farxiga 10 mg tablet 10 mg PO DAILY Qty: 90 0RF Januvia 100 mg tablet 100 mg PO DAILY Qty: 90 0RF atorvastatin 80 mg tablet See Rx Instructions .ROUTE .COMPLEX Qty: 90 0RF Dose Instruction: TAKE 1 TABLET BY MOUTH EVERY DAY AT BEDTIME Rx Instructions: TAKE 1 TABLET BY MOUTH EVERY DAY AT BEDTIME insulin glargine [Lantus Solostar U-100 Insulin] 100 unit/mL (3 mL) insulin pen 10 unit SQ HS Qty: 15 2RF famotidine [Pepcid] 20 mg tablet 20 mg PO DAILY Qty: 90 0RF irbesartan 75 mg tablet See Rx Instructions .ROUTE .COMPLEX Qty: 90 0RF Dose Instruction: Take 1 tablet by mouth once daily Rx Instructions: Take 1 tablet by mouth once daily glipizide 10 mg tablet extended release 24hr See Rx Instructions .ROUTE .COMPLEX Qty: 90 0RF Dose Instruction: TAKE 1 TABLET BY MOUTH ONCE DAILY FOR DIABETES Rx Instructions: TAKE 1 TABLET BY MOUTH ONCE DAILY FOR DIABETES aspirin 81 mg tablet,delayed release (DR/EC) 81 mg PO DAILY (DME) blood-glucose meter [ReliOn Micro Glucose Monitor] [facility] See Rx Instructions .Route Rx Instructions: As directed (DME) ReliOn Prime Test Strips Strip See Rx Instructions .Route Rx Instructions: As directed Brilinta 90 mg tablet 90 mg PO BID Referrals Follow up/Referrals: Provider,Referral, MD [Primary Care Provider] - See instructions Activity Restrictions/Add. Instructions Additional Instructions/Restrictions: At this time it was felt you are safe to be discharged home. If new or worsening symptoms please do not hesitate to return the emergency department. Please call and schedule appoint with Dr. Johnston's office as soon as you are able. Your sugar was elevated today which has called your sodium to be a little bit low. Your potassium is a little bit high although not dangerous will need to be repeated this week. Please follow-up with your family doctor to adjust your insulin as discussed. Clinical Impressions Clinical Impression: Acute hyperkalemia, Chest pain, Hyperglycemia, Hyponatremia Discharge ED Provider: Robert Zapata HPI General Chief Complaint: Chest Pain Stated Complaint: chest pain Time Seen by Provider: 03/21/24 08:49 Mode of Arrival: Ambulatory Source of Information: Patient Limitations: No Limitations Description of Symptoms (Recalled from ER Triage Doc. by RN): chest pain that started @ 0600 radiates to the left with arm numbness History of Present Illness HPI narrative: Patient is a 49-year-old male with past medical history of coronary artery disease status post stenting, hypertension, hyperlipidemia, diabetes that is insulin-dependent who presents emergency department for evaluation of chest pain. Onset was acute, substernal radiating up into his left anterior shoulder. No other acute complaints at this time. Related Data Home Medications Medication Instructions Recorded Confirmed aspirin 81 mg tablet,delayed 81 mg PO DAILY [facility] 03/21/23 01/30/24 release blood sugar diagnostic (ReliOn 06/29/23 01/30/24 Prime Test Strips) blood-glucose meter (ReliOn Micro 06/29/23 01/30/24 Glucose Monitor) ticagrelor 90 mg tablet (Brilinta) 90 mg PO BID Platelet Inhibitor 06/29/23 01/30/24 Previous Rx's Medication Instructions Recorded pen needle, diabetic 32 gauge x #100 ea 07/05/2302/15 (Comfort EZ Pen [place]) dapagliflozin propanediol 10 mg 10 mg PO DAILY Diabetes #90 tabs 09/30/23 tablet (Farxiga) metformin 500 mg tablet,extended 1,000 mg (2 x 500 mg) PO DAILY 09/30/23 release 24 hr Diabetes #180 tabs sitagliptin phosphate 100 mg 100 mg PO DAILY Diabetes #90 tabs 09/30/23 tablet (Januvia) metoprolol succinate 50 mg 50 mg PO DAILY High Blood Pressure 10/13/23 tablet,extended release 24 hr #90 tabs nitroglycerin 0.4 mg sublingual 0.4 mg sublingual Q5-15M PRN chest 10/13/23 tablet pain #30 tabs ranolazine 1,000 mg 1,000 mg PO BID #180 tabs 10/13/23 tablet,extended release,12 hr atorvastatin 80 mg tablet See Rx Instructions .Route 10/24/23 .COMPLEX #90 tabs insulin glargine 100 unit/mL (3 10 unit (0.1 mL) SQ HS Diabetes 11/21/23 mL) subcutaneous pen (Lantus #15 mL Solostar U-100 Insulin) famotidine 20 mg tablet (Pepcid) 20 mg PO DAILY #90 tabs 01/09/24 irbesartan 75 mg tablet See Rx Instructions .Route 01/18/24 .COMPLEX #90 tabs glipizide 10 mg tablet, extended See Rx Instructions .Route 02/02/24 release 24 hr .COMPLEX #90 tabs Allergies Allergy/AdvReac Type Severity Reaction Status Date / Time bee pollen Allergy Verified 01/30/24 14:50 [facility] Disclaimer: The information contained in this section may have been updated after the patient was seen, as this information can be updated by other users. Medical History (Updated 03/21/24 @ 13:53 by Robert Zapata MD) Unstable angina GERD (gastroesophageal reflux disease) Atypical angina Myocardial infarction Hypertension Coronary artery disease Hyperlipidemia Tobacco use Diabetes mellitus Surgical History H/O heart artery stent Hx of drainage of abscess Family History Other Hyperlipidemia Hypertension Social History Smoking Status: Current every day smoker tobacco type: cigarettes packs per day: 1 alcohol intake: never current occupational status: employed Travel in the last 8 weeks: None household members: none ROS Obtained: Yes Systems reviewed as appropriate & no additional complaints except as documented Physical Exam General General appearance: alert and in no apparent distress Head Head exam: atraumatic and normocephalic Eye Eye exam: Present PERRL ENT ENT exam: Present mucous membranes moist Neck Neck exam: Present normal inspection Chest Chest inspection: Present normal inspection and symmetric chest wall rise Respiratory Respiratory exam: Present normal lung sounds bilaterally; Absent respiratory distress Cardiovascular Cardiovascular exam: Present regular rate and normal rhythm Abdominal Exam Abdominal exam: Present soft; Absent tenderness Extremities Exam Extremities exam: Present normal inspection Neurological Exam Neurological exam: Present alert Psychiatric Psychiatric exam: Present normal affect Skin Skin exam: Present warm and dry HEART Score HEART Score HEART Score assessment performed?: Yes History (anamnesis): Highly suspicious ECG: Non-specific disturbance Age: 45-65 years Risk factors: Atherosclerosis history Troponin: </= normal limit HEART Score: 6 Critical Care Critical Care Time Critical Care Time: No Medical Decision Making Maynor Inquiry Pt receiving controlled substance: No Vital Signs Vital Signs: 03/21/24 08:47 03/21/24 10:01 03/21/24 10:30 Temperature 98.5 F Temperature Source Oral Pulse Rate 87 81 Pulse Rate [Right] 103 H Respiratory Rate 20 24 23 Blood Pressure 122/76 118/78 Blood Pressure [Right Arm] 126/87 Blood Pressure Mean [Right Arm] 100 02 Sat by Pulse Oximetry 96 94 L 93 L Oxygen Delivery Method Room Air Room Air Room Air 03/21/24 11:00 03/21/24 11:30 03/21/24 12:00 Temperature Temperature Source Pulse Rate 85 85 85 Pulse Rate [Right] Respiratory Rate 23 25 H 24 Blood Pressure 122/79 122/83 114/73 Blood Pressure [Right Arm] Blood Pressure Mean [Right Arm] 02 Sat by Pulse Oximetry 94 L 95 95 Oxygen Delivery Method Room Air Room Air Room Air 03/21/24 12:30 03/21/24 13:00 Temperature Temperature Source Pulse Rate 85 90 Pulse Rate [Right] Respiratory Rate 17 21 Blood Pressure 124/81 126/81 Blood Pressure [Right Arm] Blood Pressure Mean [Right Arm] 02 Sat by Pulse Oximetry 95 95 Oxygen Delivery Method Room Air Room Air Lab Data Labs: Lab Results 03/21/24 08:50: WBC 14.7 H, RBC 5.44, Hgb 16.5, Hct 48.8, MCV 89.8, MCH 30.3, MCHC 33.8, RDW 13.2, Plt Count 250, MPV 9.9, Neut % (Auto) 68.2, Lymph % (Auto) 24.4, [place] % (Auto) 3.7, Eos % (Auto) 2.6, Baso % (Auto) 1.0, Neut # (Auto) 10.0 H, Lymph # (Auto) 3.6, [place] # (Auto) 0.5, Eos # (Auto) 0.4, Baso # (Auto) 0.1, D-Dimer 0.30, Sodium 130 L, Potassium 5.7 H, Chloride 98, Carbon Dioxide 23, Anion Gap 14.7, BUN 7 L, Creatinine 0.50 L, Estimated Creat Clear 271, Estimated GFR 177, Est GFR ( Amer) 215, Glucose 330 H, Calcium 8.8, Total Bilirubin 1.4 H, AST 57, ALT 28, Alkaline Phosphatase 76, Troponin I 0.02, Total Protein 8.1, Albumin 4.5, Globulin 3.6 H, Albumin/Globulin Ratio 1.3 03/21/24 12:56: Troponin I < 0.01 03/21/24 08:50 03/21/24 08:50 Response Orders (Tests/Meds): ED MEDICATIONS Discontinued Medications Generic Name Dose Route Start Last Admin Trade Name Freq PRN Reason Stop Dose Admin Aspirin 324 mg 03/21/24 08:49 03/21/24 09:16 Aspirin 81mg Chewable Tablet PO 03/21/24 08:50 324 mg ONCE ONE Administration Belladonna Alkaloids 60 ml 03/21/24 08:52 03/21/24 09:15 Belladonna Alkaloids 60 Ml Ml PO 03/21/24 08:53 60 ml ONCE ONE Administration Lactated Ringer's 1,000 mls @ 999 mls/hr 03/21/24 09:30 03/21/24 10:10 Lactated Ringer's 1000 Ml Bag IV 03/21/24 10:30 999 mls/hr .Q1H1M ONE Administration Nitroglycerin 0.4 mg 03/21/24 08:50 03/21/24 09:19 Nitroglycerin 0.4mg Sl Tablet SL 03/21/24 08:51 Not Given ONCE ONE ORDERS Category Date Time Status CXR --portable [XR chest portable] Stat Exams 03/21/24 08:49 Completed CBC w/Auto Diff [Complete Blood Count Auto Diff] Stat Lab 03/21/24 08:50 Completed CMP [Comprehensive Metabolic Panel] Stat Lab 03/21/24 08:50 Completed D-Dimer Stat Lab 03/21/24 08:50 Completed Trop I [Troponin I] Stat Lab 03/21/24 08:50 Completed Troponin I Q3H Lab 03/21/24 12:56 Completed Troponin I Q3H Lab 03/21/24 15:00 Ordered ECG Data Tracing #1: ECG Narrative: Independently interpreted by me, rate is 94, rhythm is regular, axis is normal, no ST elevation in anatomical contiguous leads, QTc 406. MDM Narrative Medical Decision Narrative: In summary patient is a 49-year-old male with past medical history described above who presents emergency department for evaluation of chest pain. Patient is hemodynamically stable nontoxic-appearing upon arrival, afebrile. Differential diagnosis includes ACS, noncardiac chest pain, pulmonary embolism, among others. Workup will be conducted with hematologic labs, chest x-ray, EKG, serial troponins. Show inventions include aspirin and nitroglycerin. Initial workup reviewed by me, nonspecific leukocytosis, D-dimer excludes pulmonary embolism and low risk aortic dissection, persistent mild hyponatremia, mild hyperkalemia which is nonactionable at this time. Initial troponin within normal range, subsequent troponin undetectably low. Patient has elevated glucose in the setting of insulin-dependent diabetes. Upon repeat evaluation patient was well-appearing resting comfortably in bed. The case was discussed with cardiology who agrees, although downtrending the initial troponin was normal. Given this patient is appropriate for outpatient management at this time we will follow-up with cardiology.
[2024-03-21 09:00] LABS: Basophils # 0.1 K/mm3 (0-0.2); Eosinophils # 0.4 K/mm3 (0.0-0.4); Eosinophils % 2.6 % (0.1-12.0); Hematocrit 48.8 % (42.0-52.0); Hemoglobin 16.5 g/dL (14.1-18.0); Lymphocytes # 3.6 K/mm3 (0.7-4.5); Lymphocytes % 24.4 % (10-50); Mean Corpuscular HGB Conc 33.8 g/dL (31.8-35.4); Mean Corpuscular Hemoglobin 30.3 pg (27.0-31.2); Mean Corpuscular Volume 89.8 fl (80-94); Mean Platelet Volume 9.9 fl (7.4-10.4); Monocytes # 0.5 K/mm3 (0.1-1.0); Monocytes % 3.7 % (1.7-9.3); Neutrophils % 68.2 % (37.0-80.0); Platelet Count 250 K/mm3 (142-424); Red Blood Count 5.44 M/mm3 (4.60-6.20); Red Cell Distribution Width 13.2 % (11.5-17.5); White Blood Count 14.7 K/mm3 (4.8-10.8)
[2024-03-21 09:11] LABS: Chloride 98 mmol/L (98-107); Potassium 5.7 mmoL/L (3.5-5.1); Sodium 130 mmol/L (136-145)
[2024-03-21 09:14] LABS: Alanine Aminotransferase 28 U/L (12-78); Albumin Level 4.5 g/dl (3.5-5.0); Albumin/Globulin Ratio 1.3 (1.1-1.8); Alkaline Phosphatase 76 U/L (38-126); Anion Gap 14.7 mEq/L (5-15); Aspartate Amino Transferase 57 U/L (17-59); Bilirubin,Total 1.4 mg/dl (0.2-1.3); Blood Urea Nitrogen 7 mg/dl (9-20); Calcium 8.8 mg/dl (8.4-10.2); Carbon Dioxide 23 mmol/L (22.0-30.0); Creatinine Clearance Estimated 271 mL/min (50-200); Estimated Glomerular Filt Rate 177 ml/min (>60); GFR (African American) 215 ML/MIN (>60); Globulin 3.6 g/dL (1.3-3.2); Glucose 330 mg/dl (74-100); Total Protein,Serum 8.1 g/dl (6.3-8.2)
[2024-03-21] MEDS: BELLADONNA ALKALOIDS 60 ML ML PO (09:15)
[2024-03-21] MEDS: ASPIRIN 81MG CHEWABLE TABLET 324 MG PO (09:16)
[2024-03-21 09:26] LABS: Troponin I 0.02 ng/ml (0.00-0.034)
[2024-03-21] MEDS: LACTATED RINGERS 1000ML 1,000 ML 999 ML IV (10:10)
--- NOTE | 2024-03-21 11:58 | PC.NURSE ---
Pt updated that we are waiting on results from second trop
[2024-03-21 13:40] LABS: Troponin I < 0.01 ng/ml (0.00-0.034)
== END 2024-03-21 13:59 | disposition home or self-care (01) ==
PROVIDERS: Emergency Provider Emergency Medicine
DX: E87.5 Hyperkalemia (principal); E87.1 Hypo-osmolality and hyponatremia; R07.89 Other chest pain; E11.65 Type 2 diabetes mellitus with hyperglycemia; F17.210 Nicotine dependence, cigarettes, uncomplicated; K21.9 Gastro-esophageal reflux disease without esophagitis; E78.5 Hyperlipidemia, unspecified; I11.9 Hypertensive heart disease without heart failure; I25.119 Atherosclerotic heart disease of native coronary artery with unspecified angina pectoris; Z95.5 Presence of coronary angioplasty implant and graft; Z79.4 Long term (current) use of insulin; Z79.84 Long term (current) use of oral hypoglycemic drugs
CPT/HCPCS: 71045; 80053; 84484; 85025; 85378; 93005; 96360; 99284; J7120

== ENCOUNTER 2024-04-02 07:43 | Day surgery (SDC) | payer MEDICAID, SELFPAY ==
[2024-04-02] VITALS (12 sets, daily range): BP systolic 106–135; BP diastolic 64–79; PULSE 68–117; RESP 17–19; TEMP 36.6; O2SAT 95–97; BMI 31.6
--- NOTE | 2024-04-02 07:21 | IR_ITS ---
APPROVED REPORT Patient Location: Outpatient [facility] Operator: ABHAY Kate RT (R) PROCEDURES Left heart catheterization Left ventriculogram Selective coronary angiogram Left internal mammary angiography INDICATION Accelerated angina pectoris, Known multivessel coronary disease, Informed consent was obtained prior to the procedure. COMPLICATIONS NONE Estimated Blood Loss: LESS THAN 10 ML TECHNIQUE One percent lidocaine was used to anesthetize the right groin. The right femoral artery was accessed via the Seldinger technique. A 4-Pakistani sheath was placed in the right femoral artery. The JL-4 and JR-4 catheter was also used to perform left heart catheterization left ventriculogram and selective coronary angiogram. The JR4 catheter was placed in the left subclavian artery and left internal mammary angiography was performed. At the end of the procedure the patient was transferred to the post-op holding area in stable condition for arterial sheath removal. ANGIOGRAPHIC RESULTS The left main artery Normal The left anterior descending artery Has proximal concentric 80% stenosis followed by additional 60% mid vessel stenosis. LAD gives rise to a large diagonal artery The circumflex artery Is dominant and gives rise to a large ramus intermedius which is widely patent. The circumflex artery has mild atheromatous 10% luminal regularities The right coronary artery Nondominant has a stent in the ostial proximal segment which is widely patent with a 20% stenosis distal to the transition The CAMACHO ventriculogram reveals Normal 65% The left ventricular end-diastolic pressure 15 mmHg Left subclavian and left internal mammary arteries are widely patent IMPRESSION Severe proximal LAD disease Normal ejection fraction Normal left ventricular end-diastolic pressure PLAN 1. Patient already received drug-eluting stents in the proximal LAD on 2 separate occasions. Given the young age of this gentleman, diabetes, and now recurrent restenosis in the proximal LAD I believe he would be better served with LI to first diagonal artery and LAD. Patient will be referred to [facility] CT surgery 2. LDL less than 55 to be achieved with high intensity statin Electronically signed by : Yamil Johnston MD 04/02/2024 10:52:33
[2024-04-02] MEDS: TICAGRELOR 90MG TABLET 90 MG PO (08:16)
[2024-04-02] MEDS: ASPIRIN 81MG CHEWABLE TABLET 81 MG PO (08:16)
[2024-04-02 08:22] LABS: Chloride 97 mmol/L (98-107); Potassium 3.5 mmoL/L (3.5-5.1); Sodium 135 mmol/L (136-145)
[2024-04-02 08:23] LABS: Basophils # 0.1 K/mm3 (0-0.2); Basophils % 0.7 % (0.1-2.0); Eosinophils # 0.3 K/mm3 (0.0-0.4); Eosinophils % 2.1 % (0.1-12.0); Hematocrit 51.5 % (42.0-52.0); Hemoglobin 17.3 g/dL (14.1-18.0); Lymphocytes # 2.8 K/mm3 (0.7-4.5); Lymphocytes % 21.4 % (10-50); Mean Corpuscular HGB Conc 33.6 g/dL (31.8-35.4); Mean Corpuscular Hemoglobin 30.4 pg (27.0-31.2); Mean Corpuscular Volume 90.7 fl (80-94); Monocytes # 0.6 K/mm3 (0.1-1.0); Monocytes % 4.4 % (1.7-9.3); Neutrophils # 9.5 K/mm3 (1.8-7.8); Neutrophils % 71.5 % (37.0-80.0); Platelet Count 251 K/mm3 (142-424); Red Blood Count 5.68 M/mm3 (4.60-6.20); Red Cell Distribution Width 13.3 % (11.5-17.5); White Blood Count 13.3 K/mm3 (4.8-10.8)
[2024-04-02 08:25] LABS: Anion Gap 16.5 mEq/L (5-15); Blood Urea Nitrogen 13 mg/dl (9-20); Carbon Dioxide 25 mmol/L (22.0-30.0); Creatinine Clearance Estimated 199 mL/min (50-200); Estimated Glomerular Filt Rate 120 ml/min (>60); GFR (African American) 146 ML/MIN (>60)
[2024-04-02 08:26] LABS: Calcium 9.4 mg/dl (8.4-10.2); Glucose 361 mg/dl (74-100)
[2024-04-02] MEDS: diphenhydrAMINE 50MG/ML VIAL 50 MG IV (10:32)
[2024-04-02] MEDS: VERAPAMIL 2.5MG/ML 2ML VIAL 2.5 MG IV (10:32)
[2024-04-02] MEDS: HEPARIN 1,000 UNITS/ML 10ML VIAL (CATH LAB) 10000 UNIT IV (10:32)
[2024-04-02] MEDS: LIDOCAINE 1% 10ML MDV 20 ML IJ (10:32)
[2024-04-02] MEDS: NITROGLYCERIN 800MCG/8ML SYR (CATH LAB) 800 MCG IA (10:32)
[2024-04-02] MEDS: HEPARIN 1,000 UNITS/500ML NS (CATH LAB) 3000 UNIT IV (10:33)
[2024-04-02] MEDS: 0.9 % SODIUM CHLORIDE 500 ML 25 ML IV (10:33)
[2024-04-02] MEDS: MIDAZOLAM HCL 1MG/1ML 5ML VIAL 1 MG IV (10:41)
[2024-04-02] MEDS: FENTANYL 100MCG/2ML VIAL 50 MCG IV (10:42)
--- NOTE | 2024-04-02 11:28 | SUR.PHASEII ---
[facility] referral sent to Dr Jackson office, appt time and date in patients d/c paper work
[2024-04-02] MEDS: IOPAMIDOL-370 (76%);100ML BOTTLE 50 ML IV (12:15)
== END 2024-04-02 14:12 | disposition home or self-care (01) ==
PROVIDERS: PCP Physician Assistant; Visit Provider Internal Medicine
DX: I25.110 Atherosclerotic heart disease of native coronary artery with unstable angina pectoris (principal); F17.210 Nicotine dependence, cigarettes, uncomplicated; Z95.5 Presence of coronary angioplasty implant and graft; E11.9 Type 2 diabetes mellitus without complications; Z79.899 Other long term (current) drug therapy; Z79.4 Long term (current) use of insulin; Z95.1 Presence of aortocoronary bypass graft; E78.5 Hyperlipidemia, unspecified
CPT/HCPCS: 80048; 85025; 93459; 99152; C1725; C1769; J1644; J2250; J3010; Q9967

== ENCOUNTER 2024-04-17 14:12 | Outpatient (CLI) | payer MEDICAID, SELFPAY ==
[2024-04-17 15:00] LABS: Basophils # 0.1 K/mm3 (0-0.2); Basophils % 0.7 % (0.1-2.0); Eosinophils # 0.2 K/mm3 (0.0-0.4); Eosinophils % 1.5 % (0.1-12.0); Hematocrit 46.2 % (42.0-52.0); Hemoglobin 15.6 g/dL (14.1-18.0); Lymphocytes # 2.8 K/mm3 (0.7-4.5); Lymphocytes % 24.3 % (10-50); Mean Corpuscular HGB Conc 33.7 g/dL (31.8-35.4); Mean Corpuscular Hemoglobin 30.6 pg (27.0-31.2); Mean Corpuscular Volume 90.6 fl (80-94); Mean Platelet Volume 9.6 fl (7.4-10.4); Monocytes # 0.5 K/mm3 (0.1-1.0); Neutrophils # 8.1 K/mm3 (1.8-7.8); Neutrophils % 69.4 % (37.0-80.0); Platelet Count 221 K/mm3 (142-424); Red Cell Distribution Width 13.3 % (11.5-17.5); White Blood Count 11.7 K/mm3 (4.8-10.8)
== END 2024-04-17 23:59 | disposition home or self-care (01) ==
LOC: LAB 14:13
PROVIDERS: PCP Physician Assistant; Visit Provider Physician Assistant
DX: D72.829 Elevated white blood cell count, unspecified (principal)
CPT/HCPCS: 36415; 85025

== ENCOUNTER 2025-02-20 21:11 | Observation (INO) | payer MEDICAID, SELFPAY ==
--- NOTE | 2025-02-20 21:14 | XR_ITS ---
PROCEDURE INFORMATION: Exam: XR Chest Exam date and time: 02/20/2025 9:17 PM Age: 50 years old Clinical indication: Pain; Chest pressure; Additional info: Chest pain TECHNIQUE: Imaging protocol: Radiologic exam of the chest. Views: 2 views. COMPARISON: CR XR CHEST PORTABLE 03/21/2024 8:53 AM FINDINGS: Lungs: Unremarkable. No consolidation. Pleural spaces: Unremarkable. No pleural effusion. No pneumothorax. Heart/Mediastinum: Unremarkable. No cardiomegaly. Bones/joints: Unremarkable. IMPRESSION: No acute findings.
[2025-02-20 21:15] VITALS: BP 149/106; PULSE 110; RESP 20; TEMP 36.7; O2SAT 98; BMI 33.0
--- NOTE | 2025-02-20 21:16 | ECG_ITS ---
APPROVED REPORT Exam: Resting ECG HR:99 bpm ECG Measurements Heart Rate 99 AXES NH 149 P 77 QRSd 93 QRS 72 QT 337 T 89 QTc 394 Conclusion SINUS RHYTHM POSSIBLE LEFT ATRIAL ENLARGEMENT [-0.1mV P-WAVE IN V1/V2] POSSIBLE ANTERIOR MYOCARDIAL INFARCTION , OF INDETERMINATE AGE [30 ms Q WAVE IN V3/V4, OR R < 0.2 mV IN V4] No STEMI Electronically signed by : RAISSA MALLOY, 02/23/2025 14:39:31
[2025-02-20] MEDS: ASPIRIN 81MG CHEWABLE TABLET 324 MG PO (21:18)
[2025-02-20] MEDS: ACETAMINOPHEN 500MG TAB 1000 MG PO (21:18)
[2025-02-20] MEDS: BELLADONNA ALKALOIDS 60 ML ML PO (21:18)
[2025-02-20 21:20] VITALS: PULSE 110
[2025-02-20 21:34] LABS: Basophils # 0.1 K/mm3 (0-0.2); Basophils % 0.5 % (0.1-2.0); Eosinophils # 0.3 Kmm3 (0.0-0.4); Eosinophils % 2.3 % (0.1-12.0); Hematocrit 48.8 % (42.0-52.0); Hemoglobin 17.1 g/dL (14.1-18.0); Immature Granulocytes # 0.04 10^3uL; Immature Granulocytes % 0.3 %; Lymphocytes # 3.6 K/mm3 (0.7-4.5); Lymphocytes % 30.1 % (10-50); Mean Corpuscular Hemoglobin 29.8 pg (27.0-31.2); Mean Corpuscular Volume 85.2 fl (80-94); Mean Platelet Volume 11.7 fl (7.4-10.4); Monocytes # 0.7 K/mm3 (0.1-1.0); Neutrophils # 7.3 K/mm3 (1.8-7.8); Neutrophils % 60.8 % (37.0-80.0); Nucleated Red Blood Cells # 0 10^3/uL; Nucleated Red Blood Cells % 0 %; Platelet Count 258 K/mm3 (142-424); Red Blood Count 5.73 M/mm3 (4.60-6.20); Red Cell Distribution Width 12.2 % (11.5-17.5); Red Cell Distribution Width-SD 37.5 fL
[2025-02-20 21:38] LABS: Alanine Aminotransferase 24 U/L (12-78); Albumin Level 4.5 g/dl (3.5-5.0); Albumin/Globulin Ratio 1.6 (1.1-1.8); Alkaline Phosphatase 112 U/L (38-126); Anion Gap 15.1 mEq/L (5-15); Aspartate Amino Transferase 26 U/L (17-59); Bilirubin,Total 0.6 mg/dl (0.2-1.3); Blood Urea Nitrogen 8 mg/dl (9-20); Carbon Dioxide 24 mmol/L (22.0-30.0); Chloride 96 mmol/L (98-107); Creatinine Clearance Estimated 205 mL/min (50-200); Estimated Glomerular Filt Rate 120 ml/min (>60); GFR (African American) 145 ML/MIN (>60); Globulin 2.9 g/dL (1.3-3.2); Lipase 79 U/L (23-300); Potassium 4.1 mmoL/L (3.5-5.1); Sodium 131 mmol/L (136-145); Total Protein,Serum 7.4 g/dl (6.3-8.2)
[2025-02-20 21:43] LABS: D-Dimer 0.48 ug/mL (0.0-0.5)
[2025-02-20 21:52] LABS: Glucose 485 mg/dl (74-100); Troponin I < 0.01 ng/ml (0.00-0.034)
[2025-02-20 22:00] VITALS: BP 144/89; PULSE 97; RESP 26; O2SAT 96
--- NOTE | 2025-02-20 22:08 | [facility].EDCP ---
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 by RN): patient c/o chest pain for the last two weeks but worse today. 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 History of open heart last April and Afib. Does take plavix but is currently out of medication History of Present Illness HPI narrative: This patient is a 50-year-old male with a history of CAD status post CABG, hypertension, hyperlipidemia, diabetes, tobacco abuse, GERD, and PAD presenting to the emergency department for evaluation with concern for chest pains. Patient notes that he is been having constant chest pain for the last 2 weeks but is acutely worse today. He is taken 3 nitro with the last one 15 minutes prior to arrival without good improvement. He notes it is midsternal feels like something is squeezing his heart. He states this feels similar to that what he experienced when he had to have his open heart surgery. No other concerns or complaints noted. He reports compliance with his home medications with last dose being this morning, but he notes he did run out of his medicines and does not have anymore. Related Data Home Medications ?Medication ?Instructions ?Recorded ?Confirmed aspirin 81 mg tablet,delayed [address] [facility] 03/21/23 04/16/24 release blood sugar diagnostic ([employer] 06/29/23 04/16/24 Prime Test Strips) blood-glucose meter ([employer] Micro 06/29/23 04/16/24 Glucose Monitor) metoprolol succinate 50 mg 25 mg PO DAILY 04/10/24 02/20/25 tablet,extended release 24 hr atorvastatin 80 mg tablet 80 mg PO DAILY 02/20/25 02/20/25 glipizide 10 mg tablet, extended 10 mg PO DAILY 02/20/25 02/20/25 release 24 hr irbesartan 75 mg tablet 75 mg PO DAILY 02/20/25 02/20/25 sitagliptin phosphate 100 mg 100 mg PO DAILY 02/20/25 02/20/25 tablet (Januvia) ticagrelor 90 mg tablet (Brilinta) 90 mg PO BID 02/20/25 02/20/25 Previous Rx's ?Medication ?Instructions ?Recorded pen needle, diabetic 32 gauge x #100 ea 07/05/2302/15 (Comfort EZ Pen [place]) dapagliflozin propanediol 10 mg 10 mg PO DAILY Diabetes #90 tabs 09/30/23 tablet (Farxiga) nitroglycerin 0.4 mg sublingual 0.4 mg sublingual Q5-15M PRN chest 10/13/23 tablet pain #30 tabs ranolazine 1,000 mg 1,000 mg PO BID #180 tabs 10/13/23 tablet,extended release,12 hr insulin glargine 100 unit/mL (3 10 unit (0.1 mL) SQ HS Diabetes 11/21/23 mL) subcutaneous pen (Lantus #15 mL Solostar U-100 Insulin) metoprolol succinate 100 mg 100 mg PO DAILY #30 tabs 03/28/24 tablet,extended release 24 hr (Toprol XL) metformin 500 mg tablet,extended 1,000 mg (2 x 500 mg) PO DAILY 05/24/24 release 24 hr Diabetes #180 tabs famotidine 20 mg tablet See Rx Instructions .Route 06/26/24 .COMPLEX #90 tabs Allergies Allergy/AdvReac Type Severity Reaction Status Date / Time bee pollen Allergy Verified 04/16/24 13:16 [facility] Disclaimer: The information contained in this section may have been updated after the patient was seen, as this information can be updated by other users. Medical History Unstable angina GERD (gastroesophageal reflux disease) Atypical angina Myocardial infarction Hypertension Coronary artery disease Hyperlipidemia Tobacco use Diabetes mellitus Surgical History H/O heart artery stent Hx of drainage of abscess Family History Other Hyperlipidemia Hypertension Social History Smoking Status: Current every day smoker tobacco type: cigarettes packs per day: 1 alcohol intake: never current occupational status: employed Travel in the last 8 weeks?: None household members: none Have you lived/traveled outside [place] in past 30 days?: No Contact w/someone who lives/traveled outside [place] past 30 days?: No Exposure to someone with infectious disease in past 14 days?: No Do you have a fever (greater than 100.4 F or 38 C)?: No Have you tested positive for COVID-19?: No Exposed to someone with COVID-19 in past 14 days?: No Do you have a sore throat?: No Do you have a cough?: No Do you have any weakness?: No Do you have any diarrhea?: No Are you experiencing any unusual bleeding?: No Do you have any muscle aches/pain?: No Do you have any abdominal pain?: No Are you experiencing loss of taste or smell?: No Other Medical History Have you received the Flu Vaccine for this season: No Have you received the Pneumonia Vaccine: No ROS Obtained: Yes All systems reviewed & no additional complaints except as documented Physical Exam General General appearance: alert and in no apparent distress Head Head exam: atraumatic and normocephalic Eye Eye exam: Present normal appearance, PERRL and EOMI ENT ENT exam: Present normal exam, normal oropharynx, mucous membranes moist and normal external ear exam Neck Neck exam: Present normal inspection, full ROM and trachea midline; Absent tenderness Chest Chest inspection: Present normal inspection and symmetric chest wall rise; Absent tenderness Respiratory Respiratory exam: Present normal lung sounds bilaterally; Absent respiratory distress, wheezes, stridor or accessory muscle use Cardiovascular Cardiovascular exam: Present regular rate and normal rhythm Abdominal Exam Abdominal exam: Present soft; Absent distention, tenderness or guarding Extremities Exam Extremities exam: Present normal inspection, full ROM and normal capillary refill; Absent tenderness or edema Back Exam Back exam: Present normal inspection and full ROM; Absent tenderness Neurological Exam Neurological exam: Present alert, oriented X3, CN II-XII intact and normal gait; Absent motor sensory deficit Psychiatric Psychiatric exam: Present normal affect and normal mood Skin Skin exam: Present warm and dry HEART Score HEART Score HEART Score assessment performed?: Yes History (anamnesis): Moderately suspicious ECG: Normal Age: 45-65 years Risk factors: Atherosclerosis history Troponin: </= normal limit HEART Score: 4 Critical Care Critical Care Time Critical Care Time: No Medical Decision Making [place]nor Inquiry Pt receiving controlled substance: No Vital Signs Vital Signs: 02/20/25 21:15 02/20/25 21:20 02/20/25 22:00 Temperature 98.1 F Temperature Source Oral Pulse Rate 110 H 97 H Pulse Rate [Left] 110 H Respiratory Rate 20 26 H Blood Pressure 144/89 H Blood Pressure [Right Arm] 149/106 H Blood Pressure Mean [Right Arm] 120 Blood Pressure Source [Right Arm] Automatic Cuff Blood Pressure Position [Right Arm] Sitting 02 Sat by Pulse Oximetry 98 96 Oxygen Delivery Method Room Air Room Air 02/20/25 23:00 02/20/25 23:55 Temperature 97.9 F Temperature Source Pulse Rate 97 H 64 Pulse Rate [Left] Respiratory Rate 23 16 Blood Pressure 142/77 H 150/89 H Blood Pressure [Right Arm] Blood Pressure Mean [Right Arm] Blood Pressure Source [Right Arm] Blood Pressure Position [Right Arm] 02 Sat by Pulse Oximetry 97 Oxygen Delivery Method Room Air Lab Data Labs: Lab Results 02/20/25 21:17: WBC 12.0 H, RBC 5.73, Hgb 17.1, Hct 48.8, MCV 85.2, MCH 29.8, MCHC 35.0, RDW 12.2, Plt Count 258, MPV 11.7 H, Neut % (Auto) 60.8, Lymph % (Auto) 30.1, [place] % (Auto) 6.0, Eos % (Auto) 2.3, Baso % (Auto) 0.5, Neut # (Auto) 7.3, Lymph # (Auto) 3.6, [place] # (Auto) 0.7, Eos # (Auto) 0.3, Baso # (Auto) 0.1, D-Dimer 0.48, Sodium 131 L, Potassium 4.1, Chloride 96 L, Carbon Dioxide 24, Anion Gap 15.1 H, BUN 8 L, Creatinine 0.70, Estimated Creat Clear 205, Estimated GFR 120, Est GFR ( Amer) 145, Glucose 485 H*, Calcium 9.0, Total Bilirubin 0.6, AST 26, ALT 24, Alkaline Phosphatase 112, Troponin I < 0.01, Total Protein 7.4, Albumin 4.5, Globulin 2.9, Albumin/Globulin Ratio 1.6, Lipase 79, TSH 2.57, Thyroxine (T4) 12.2 H 02/20/25 21:17 02/20/25 21:17 Response Orders (Tests/Meds): ED MEDICATIONS Generic Name Dose Route Start Last Admin Trade Name Freq PRN Reason Stop Dose Admin Acetaminophen 650 mg 02/20/25 23:01 Acetaminophen 325mg Tab PO 03/22/25 23:00 Q4HP PRN Fever or Mild Pain (1-3) Hydrocodone Bitart/Acetaminophen 1 tab 02/20/25 23:01 Hydrocodone/Apap 5/325 Mg Tablet PO 03/22/25 23:00 Q4HP PRN Mild to Moderate Pain (1-6) Benzonatate 200 mg 02/20/25 23:14 Benzonatate 100mg Capsule PO 03/22/25 23:13 Q4HP PRN Cough Enoxaparin Sodium 40 mg 02/21/25 21:00 Enoxaparin 40mg/0.4ml Syringe SUBCUT 03/23/25 20:59 DAILY THOMAS Insulin Glargine 10 unit 02/20/25 21:00 Insulin Glargine 100 Units/Ml 10ml Vial SUBCUT 03/22/25 20:59 HS THOMAS Insulin Human Lispro 0 unit 02/21/25 06:00 Humalog 100 Units/Ml 10ml Vial (Ssi) SUBCUT 03/23/25 05:59 ACHS THOMAS Protocol Morphine Sulfate 2 mg 02/20/25 23:01 Morphine 2mg/Ml Syringe IV 03/22/25 23:00 Q2HP PRN Severe Pain (7-10) Nicotine 21 mg 02/20/25 23:01 Nicotine 21mg/24hr Patch TD 03/22/25 23:00 DAILYP PRN Nicotine Cravings Ondansetron HCl 4 mg 02/20/25 23:01 Ondansetron 4mg/2ml Vial IV 03/22/25 23:00 Q8HP PRN Nausea Discontinued Medications Generic Name Dose Route Start Last Admin Trade Name Freq PRN Reason Stop Dose Admin Acetaminophen 1,000 mg 02/20/25 21:14 02/20/25 21:18 Acetaminophen 500mg Tab PO 02/20/25 21:15 1,000 mg ONCE ONE Administration Aspirin 324 mg 02/20/25 21:14 02/20/25 21:18 Aspirin 81mg Chewable Tablet PO 02/20/25 21:15 324 mg ONCE ONE Administration Belladonna Alkaloids 60 ml 02/20/25 21:14 02/20/25 21:18 Belladonna Alkaloids 60 Ml Ml PO 02/20/25 21:15 60 ml ONCE ONE Administration Metoprolol Tartrate 50 mg 02/20/25 22:36 Metoprolol Tartrate 50mg Tablet PO 02/20/25 22:37 ONCE ONE ORDERS Category Date Time Status Cardiology Consult [Consult to Cardiology] [CONS] Cons 02/20/25 22:36 Active Routine CXR 2 view (NOT portable) [XR chest 2V] Stat Exams 02/20/25 21:14 Completed Complete Blood Count Auto Diff Stat Lab 02/20/25 21:17 Completed Comprehensive Metabolic Panel Stat Lab 02/20/25 21:17 Completed D-Dimer Stat Lab 02/20/25 21:17 Completed Lipase Stat Lab 02/20/25 21:17 Completed T4 (Thyroxine) Stat Lab 02/20/25 21:17 Completed TSH [Thyroid Stimulating Hormone] Stat Lab 02/20/25 21:17 Completed Trop I [Troponin I] Stat Lab 02/20/25 21:17 Completed Troponin I Q3H Lab 02/21/25 00:15 Ordered Troponin I Q3H Lab 02/21/25 03:15 Ordered ECG Data Tracing #1: Attestation: I reviewed this ECG and interpreted as documented below: ECG Narrative: Normal sinus rhythm with ventricular rate of 99 bpm. Q waves present in 2, 3, and aVF. No acute ST changes concerning for ischemia. Normal intervals ECG initial impression date: 02/20/25 ECG initial impression time: 21:19 MDM Narrative Medical Decision Narrative: In summary, this patient is a 50-year-old male presenting to the Emergency Department for evaluation of chest pain for the last 2 weeks but worsened today. Differential diagnoses considered include but are not limited to ACS, dysrhythmia, GERD, unstable angina, costochondritis, PE. Ruling out the most morbid conditions drove assessment. It should be noted patient's history includes CAD, hypertension, hyperlipidemia, and diabetes which may or may not be at goal therapy. This complicates all aspects of care by increasing patient's risk for morbidity. I reviewed patient's past medical records and noted prior evaluations by cardiology, prior cardiac catheterization back in April. On exam, the patient is sitting upright in no acute distress with reassuring vital signs on cardiac telemetry with exception of mild tachycardia and hypertension. Cardiopulmonary exam is reassuring and he has equal pulses bilaterally. Workup included CBC, CMP, lipase, troponin, D-dimer, chest x-ray, EKG. He was given oral aspirin, GI cocktail, and oral Tylenol for symptomatic improvement of pain. EKG obtained is reassuring with no acute ST changes concerning for ischemia. I independently interpreted chest x-ray prior to the radiologist read and noted no pneumothorax, no large focal consolidation, no pulmonary edema. Please see their read for final interpretation. Labs were obtained that demonstrated very mild leukocytosis, which is nonspecific. Chemistry is reassuring with negative initial troponin. He is hyperglycemic but there is no significant elevation in his anion gap or significant derangements to suggest HHS or DKA. D-dimer is negative. On reassessment, the patient continues to be mildly tachycardic and continues to complain of severe pain. His workup has been reassuring, second troponin is pending. Given his intractable chest pains, I did call Dr. Johnston for recommendations. He advised that he recommended 50 mg of oral metoprolol now, thyroid studies, and admitting the patient for further assessment. These were ordered. I had an interactive discussion with the hospitalist who admitted the patient in stable condition for further evaluation and management for chest pain
[2025-02-20 23:00] VITALS: BP 142/77; PULSE 97; RESP 23; O2SAT 97
--- NOTE | 2025-02-20 23:12 | P.HP_ITS ---
<Statement entered by João Plasencia MD - 02/25/25 17:01> Personally evaluated the patient and agree with the plan of care as outlined by the REDUCTION FURNACE OPERATOR. History of Present Illness *Admission Date: 02/20/25 *Reason for visit:: Chest pain *History of present illness: This is a 50-year-old male who has a past medical history significant for unstable angina, GERD, NC, hypertension, coronary artery disease, hyperlipidemia, and diabetes who presents with a chief complaint of chest pain. Due to patient's symptoms, he presented to the emergency room for evaluation. While in emergency room, EKG revealed sinus rhythm, QTc of 394, normal axis, and T wave inversion/biphasic T waves in the inferior leads-Per my read, initial troponin was negative, and chest x-ray was negative for any acute cardiopulmonary process. Patient's case was discussed with outfitter cabin who recommended admission and trending patient's troponin and evaluating patient in the a.m. Due to these recommendations, hospital medicine was contacted for further management. During my evaluation of the patient, he states that he has been having chest pain for the past 2 weeks that is midsternal, without any radiation, it is worse with coughing, was without any diaphoresis, without any significant shortness of breath, and is still ongoing. Patient voices taking 3 nitro that did not improve his symptomology. He states that his chest pain feels like something is squeezing his heart. Patient has known coronary artery disease with prior drug- eluting stents placed. Last left heart cath performed by Dr. Johnston in April of last year revealed extensive coronary artery disease and it was recommended that patient have a LI to the LAD-patient is status post coronary artery bypass and graft. He is currently denying any lightheadedness, dizziness, PND, orthopnea, lower extremity swelling, dyspnea with exertion, fever, chills, rigors, nausea, vomiting, or diarrhea additional pertinent labs obtained including white blood cell count of 12, D-dimer 0.48, sodium 131, chloride of 96, BUN of 8, blood glucose of 495, and troponin was less than 0.01.. [facility] Disclaimer: The information contained in this section may have been updated after the patient was seen, as this information can be updated by other users. Medical History Unstable angina GERD (gastroesophageal reflux disease) Atypical angina Myocardial infarction Hypertension Coronary artery disease Hyperlipidemia Tobacco use Diabetes mellitus Surgical History H/O heart artery stent Hx of drainage of abscess Family History Other Hyperlipidemia Hypertension Social History (Updated 02/21/25 @ 00:58 by Rosemarie Post RN) Smoking Status: Current every day smoker tobacco type: cigarettes packs per day: 1 alcohol intake: never current occupational status: employed Travel in the last 8 weeks?: None household members: none Other Medical History Have you received the Flu Vaccine for this season: No Have you received the Pneumonia Vaccine: No Review of Systems Review of Systems Review of systems:: pertinent systems reviewed and negative unless documented below Constitutional Constitutional: Reports system reviewed and no additional complaints, except as documented Eyes Eyes: Reports system reviewed and no additional complaints, except as documented ENT Ears, Nose, Mouth, and Throat: Reports system reviewed and no additional complaints, except as documented *Cardiovascular Cardiovascular: Reports chest pain at rest *Respiratory Respiratory: Reports system reviewed and no additional complaints, except as documented *Gastrointestinal Gastrointestinal: Reports system reviewed and no additional complaints, except as documented *Genitourinary Genitourinary: Reports system reviewed and no additional complaints, except as documented *Musculoskeletal Musculoskeletal: Reports system reviewed and no additional complaints, except as documented Integumentary/Breasts Skin/Breast: Reports system reviewed and no additional complaints, except as documented *Neurologic Neurologic: Reports system reviewed and no additional complaints, except as documented Psychiatric Psychiatric: Reports system reviewed and no additional complaints, except as documented Endocrine Endocrine: Reports system reviewed and no additional complaints, except as documented Hematologic/Lymphatic Hematologic/Lymphatic: Reports system reviewed and no additional complaints, except as documented Allergic/Immunologic Allergic/Immunologic: Reports system reviewed and no additional complaints, except as documented Meds Home Medications and Allergies Home Medications ?Medication ?Instructions ?Recorded ?Confirmed ?Type aspirin 81 mg tablet,delayed 81 mg PO DAILY 03/21/23 02/21/25 History release blood sugar diagnostic (ReliOn 06/29/23 04/16/24 History Prime Test Strips) blood-glucose meter (ReliOn Micro 06/29/23 04/16/24 History Glucose Monitor) pen needle, diabetic 32 gauge x #100 ea 07/05/23 04/16/24 Rx 5/16 (Comfort EZ Pen [place]) nitroglycerin 0.4 mg sublingual 0.4 mg sublingual Q5-15M PRN chest 10/13/23 02/20/25 Rx tablet pain #30 tabs ranolazine 1,000 mg 1,000 mg PO BID #180 tabs 10/13/23 02/21/25 Rx tablet,extended release,12 hr insulin glargine 100 unit/mL (3 10 unit (0.1 mL) SQ HS Diabetes 11/21/23 02/21/25 Rx mL) subcutaneous pen (Lantus #15 mL Solostar U-100 Insulin) metoprolol succinate 100 mg 100 mg PO DAILY #30 tabs 03/28/24 02/21/25 Rx tablet,extended release 24 hr (Toprol XL) metoprolol succinate 50 mg 25 mg PO DAILY 04/10/24 02/20/25 History tablet,extended release 24 hr metformin 500 mg tablet,extended 1,000 mg (2 x 500 mg) PO DAILY 05/24/24 02/20/25 Rx release 24 hr Diabetes #180 tabs atorvastatin 80 mg tablet 80 mg PO DAILY 02/20/25 02/20/25 History glipizide 10 mg tablet, extended 10 mg PO DAILY 02/20/25 02/20/25 History release 24 hr irbesartan 75 mg tablet 75 mg PO DAILY 02/20/25 02/20/25 History sitagliptin phosphate 100 mg 100 mg PO DAILY 02/20/25 02/20/25 History tablet (Januvia) ticagrelor 90 mg tablet (Brilinta) 90 mg PO BID 02/20/25 02/20/25 History famotidine 20 mg tablet 20 mg PO DAILY 02/21/25 02/21/25 History New Prescriptions to Start Prescriptions: Allergies Allergy/AdvReac Type Severity Reaction Status Date / Time bee pollen Allergy Verified 04/16/24 13:16 Exam Data for Last 24 hours Vital signs and Labs for Last 24 Hours: Temp Pulse Resp BP Pulse Ox O2 Del Method 98.1 F 110 H 20 149/106 H 98 Room Air 02/20/25 21:15 02/20/25 21:20 02/20/25 21:15 02/20/25 21:15 02/20/25 21:15 02/20/25 21:15 Laboratory Results - last 24 hr 02/20/25 21:17: WBC 12.0 H, RBC 5.73, Hgb 17.1, Hct 48.8, MCV 85.2, MCH 29.8, MCHC 35.0, RDW 12.2, Plt Count 258, MPV 11.7 H, Neut % (Auto) 60.8, Lymph % (Auto) 30.1, [place] % (Auto) 6.0, Eos % (Auto) 2.3, Baso % (Auto) 0.5, Neut # (Auto) 7.3, Lymph # (Auto) 3.6, [place] # (Auto) 0.7, Eos # (Auto) 0.3, Baso # (Auto) 0.1, D-Dimer 0.48, Sodium 131 L, Potassium 4.1, Chloride 96 L, Carbon Dioxide 24, Anion Gap 15.1 H, BUN 8 L, Creatinine 0.70, Estimated Creat Clear 205, Estimated GFR 120, Est GFR ( Amer) 145, Glucose 485 H*, Calcium 9.0, Total Bilirubin 0.6, AST 26, ALT 24, Alkaline Phosphatase 112, Troponin I < 0.01, Total Protein 7.4, Albumin 4.5, Globulin 2.9, Albumin/Globulin Ratio 1.6, Lipase 79 I & O for Last 24 hours: Intake & Output 02/17/25 02/18/25 02/19/25 02/20/25 23:59 23:59 23:59 23:59 Weight 113.398 kg Constitutional Constitutional: no acute distress and cooperative *Routine HEENT Exam Head: Present normocephalic and atraumatic Eye: Present EOMI and PERRL ENT: Present mucous membranes moist *Routine Neck Exam Neck: Present supple, full ROM and trachea midline *Routine Respiratory Exam Respiratory: Present CTA bilaterally, normal respiratory effort, able to speak in complete sentences and symmetric chest movement *Routine Cardiovascular Exam Cardiovascular: Present RRR, Normal S1 and Normal S2 *Routine Abdominal Exam Abdominal: Present soft and normoactive bowel sounds *Routine Rectal Exam Rectal:: deferred *Routine Genitalia Exam Genitalia:: deferred *Routine Extremities Exam Extremities: Present full ROM, pulses intact and normal capillary refill Routine Back/Spine/Pelvis Exam Back/Spine: Present full ROM *Routine Skin Exam Skin: Present intact, dry and warm *Routine Neurological Exam Neurological: Present alert, oriented X3, moving all extremities and normal speech Routine Psychiatric Exam Psychiatric: Present normal affect, normal thought process, cooperative, good insight and good judgment H&P: Result Impressions 50-year-old male who has known coronary artery disease and history of unstable angina presents with refractory chest pain. Patient is status post coronary artery bypass Assessment and Plan *Assessment and plan (1) Chest pain: Status: Acute Qualifiers: Chest pain type: unspecified Qualified Code(s): R07.9 - Chest pain, unspecified Category: Medical Code(s): R07.9 - Chest pain, unspecified (2) Hyperglycemia due to type 2 diabetes mellitus: Status: Acute Qualifiers: Diabetes mellitus assisted insulin use: without assisted use Qualified Code(s): E11.65 - Type 2 diabetes mellitus with hyperglycemia Category: Medical Code(s): E11.65 - Type 2 diabetes mellitus with hyperglycemia (3) Leukocytosis: Status: Acute Qualifiers: Leukocytosis type: unspecified Qualified Code(s): D72.829 - Elevated white blood cell count, unspecified Category: Medical Code(s): D72.829 - Elevated white blood cell count, unspecified (4) CAD (coronary artery disease): Status: Acute Qualifiers: Associated angina: unspecified whether angina present Coronary Disease- Associated Artery/Lesion type: unspecified vessel or lesion type [place] vs. transplanted heart: [place] heart Qualified Code(s): I25.10 - Atherosclerotic heart disease of [place] coronary artery without angina pectoris Category: Medical Code(s): I25.10 - Atherosclerotic heart disease of [place] coronary artery without angina pectoris Plan Assessment: Chest pain/possible unstable angina - Will continue to trend patient's troponin every 3 hours - Will obtain 2D echo - Consult cardiology - Obtain lipid panel - Will give morphine 2 mg IV push for refractory chest pain - Will keep patient n.p.o. after midnight and keep n.p.o. until patient is evaluated by pedigree researcher in a.m. - Will continue metoprolol Hyperglycemia - Patient is currently prescribed Januvia, glipizide, and metformin - Will give 10 units of Lantus subcu now - Will place on sliding scale insulin with moderate sliding scale coverage for every nightly and before meals Leukocytosis - Will obtain procalcitonin - The patient has fever we will obtain blood cultures x 2 - If worsening patient condition will consider blood culture sooner - Currently patient is denying any active infection Coronary artery disease - Patient was given full dose aspirin - Will continue atorvastatin 80 mg daily - Will continue aspirin 81 daily once medication medication sedation has been updated -Patient is currently on DAPT therapy to include Brilinta Plan: Admit patient to the MedSur unit on telemetry Vital signs every 4 hours Cardiac/1800 ADA diet now and then n.p.o. after midnight CBC/BMP daily 40 mg Lovenox subcu daily for DVT prophylaxis 2 mg morphine IV push every 2 hours. Severe pain 5 mg Ashby p.o. every 4 hours for moderate pain 21 mg nicotine patch daily 4 mg Zofran IV push. Hours. Nausea from Full code I will discussed this case with attending physician Dr. Plasencia and I look forward to more input
[2025-02-20 23:13] LABS: T4 (Thyroxine) 12.2 ug/dl (5.53-11.0)
[2025-02-20 23:27] LABS: Thyroid Stimulating Hormone 2.57 uIU/mL (0.465-4.68)
--- NOTE | 2025-02-20 23:31 | PC.NURSE ---
Report called to Diana RN Pt transported to floor via wheelchair by SENIOR SHIPPING CLERK
[2025-02-20 23:55] VITALS: BP 150/89; PULSE 64; RESP 16; TEMP 36.6; O2SAT 97; O2SAT 99
[2025-02-21] VITALS (15 sets, daily range): BP systolic 94–129; BP diastolic 58–87; PULSE 66–89; RESP 16–22; TEMP 36.9–37; O2SAT 93–100; BMI 29.6; BMI 29.5
[2025-02-21 00:06] LABS: POC Glucose,Bedside 400 (70-110)
[2025-02-21] MEDS: INSULIN GLARGINE 100 UNITS/ML 10ML VIAL 10 UNIT SUBCUT (00:12)
[2025-02-21] MEDS: humaLOG 100 UNITS/ML 10ML VIAL (SSI) SUBCUT ×4 (00:13→16:01)
[2025-02-21] MEDS: METOPROLOL TARTRATE 50MG TABLET 50 MG PO (00:18)
[2025-02-21 01:02] LABS: Troponin I < 0.01 ng/ml (0.00-0.034)
[2025-02-21] MEDS: BENZONATATE 100MG CAPSULE 200 MG PO (02:10)
[2025-02-21 03:43] LABS: Troponin I < 0.01 ng/ml (0.00-0.034)
--- NOTE | 2025-02-21 05:40 | INFXCTL.NOTE ---
Pt. was admitted overnight for c/o chest pain. Pt. is alert and orientated x 4. Pt. on room air. upon asmission assessment., Pt. states that the chest resolved, he also denied any SOB, nausea, light headedness,chest pain or pressure. Pt. resting in bed, has been up to ambulate to the bathroom with no return of the symptoms. Pt. is NPO with a cardiology consult in the AM . Pt. has had no c/o's or needs this shift. Personal items and call peterson in reach.
[2025-02-21 06:17] LABS: POC Glucose,Bedside 168 (70-110)
[2025-02-21 06:48] LABS: Basophils # 0.1 K/mm3 (0-0.2); Basophils % 0.4 % (0.1-2.0); Eosinophils # 0.3 Kmm3 (0.0-0.4); Eosinophils % 1.4 % (0.1-12.0); Hemoglobin 15.9 g/dL (14.1-18.0); Immature Granulocytes # 0.08 10^3uL; Immature Granulocytes % 0.4 %; Lymphocytes # 3.8 K/mm3 (0.7-4.5); Mean Corpuscular HGB Conc 34.6 g/dL (31.8-35.4); Mean Corpuscular Hemoglobin 29.2 pg (27.0-31.2); Mean Corpuscular Volume 84.4 fl (80-94); Mean Platelet Volume 11.3 fl (7.4-10.4); Monocytes # 1.1 K/mm3 (0.1-1.0); Monocytes % 5.6 % (1.7-9.3); Neutrophils # 13.5 K/mm3 (1.8-7.8); Neutrophils % 72.2 % (37.0-80.0); Nucleated Red Blood Cells # 0 10^3/uL; Nucleated Red Blood Cells % 0 %; Platelet Count 228 K/mm3 (142-424); Red Blood Count 5.45 M/mm3 (4.60-6.20); Red Cell Distribution Width 12.2 % (11.5-17.5); Red Cell Distribution Width-SD 37.1 fL; White Blood Count 18.8 K/mm3 (4.8-10.8)
[2025-02-21 07:01] LABS: Carbon Dioxide 26 mmol/L (22.0-30.0); Chloride 102 mmol/L (98-107); Potassium 3.4 mmoL/L (3.5-5.1); Sodium 135 mmol/L (136-145)
[2025-02-21 07:02] LABS: Anion Gap 10.4 mEq/L (5-15); Blood Urea Nitrogen 11 mg/dl (9-20); Calcium 8.8 mg/dl (8.4-10.2); Chol/HDL Ratio 8.1 (1-3.5); Cholesterol 161 mg/dl (140-200); Creatinine Clearance Estimated 213 mL/min (50-200); Estimated Glomerular Filt Rate 143 ml/min (>60); GFR (African American) 173 ML/MIN (>60); Glucose 170 mg/dl (74-100); HDL Cholesterol 20 mg/dl (40-60); Triglycerides 205 mg/dl (30-150); VLDL Cholesterol 41 mg/dL (0-40)
[2025-02-21 07:13] LABS: Direct LDL Cholesterol 104.01 mg/dL (100-129)
--- NOTE | 2025-02-21 07:43 | P.CONCA_ITS ---
History of Present Illness History of Present Illness Consult date: 02/21/25 Requesting physician: João Plasencia Consult reason: chest pain Chief complaint: chest pain Additional Medical History:: 1. CAD A. Off-pump CABG (LI to LAD), 2023, Dr. Dileep Huffman [place] to RCA and LAD, 06/2023 2. DM, type 2 A. Treated for >20 yrs 3. Tobacco use, 1 ppd >30 yrs 4. PAD 5. HTN 6. HLD A. LDL 104, 01/2025 History of present illness: 50 yo WM admitted through the ED for 2 wks of chest pain with radiation down left arm and leg. Symptoms same as those prior to coronary stenting and CABG. 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 ED workup pertinent for CXR unremarkable despite elevated WBC. Troponins normal. No acute EKG changes. Admitted for observation with Cardiology consult. Pt still with chest pain this AM. Prelim Echo shows normal LVEF without effusion. Discussed recommendation for LHC in light of same angina type symptoms as before and he agrees to proceed. [facility] Disclaimer: The information contained in this section may have been updated after the patient was seen, as this information can be updated by other users. Medical History Unstable angina GERD (gastroesophageal reflux disease) Atypical angina Myocardial infarction Hypertension Coronary artery disease Hyperlipidemia Tobacco use Diabetes mellitus Surgical History H/O heart artery stent Hx of drainage of abscess Family History Other Hyperlipidemia Hypertension Social History (Updated 02/21/25 @ 00:58 by Rosemarie Post RN) Smoking Status: Current every day smoker tobacco type: cigarettes packs per day: 1 alcohol intake: never current occupational status: employed Travel in the last 8 weeks?: None household members: none Review of Systems Review of Systems Review of systems:: pertinent systems reviewed and negative unless documented below *Cardiovascular Cardiovascular: Reports chest pain and Reports dyspnea on exertion *Respiratory Respiratory: Reports dyspnea on exertion *Neurologic Neurologic: Reports system reviewed and no additional complaints, except as documented Exam Data for Last 24 hours Vital signs and Labs for Last 24 Hours: Temp Pulse Resp BP Pulse Ox O2 Del Method 98.6 F 75 16 115/58 L 95 Room Air 02/21/25 04:00 02/21/25 05:00 02/21/25 04:00 02/21/25 04:00 02/21/25 04:00 02/21/25 06:56 Laboratory Results - last 24 hr 02/20/25 21:17: WBC 12.0 H, RBC 5.73, Hgb 17.1, Hct 48.8, MCV 85.2, MCH 29.8, MCHC 35.0, RDW 12.2, Plt Count 258, MPV 11.7 H, Neut % (Auto) 60.8, Lymph % (Auto) 30.1, [place] % (Auto) 6.0, Eos % (Auto) 2.3, Baso % (Auto) 0.5, Neut # (Auto) 7.3, Lymph # (Auto) 3.6, [place] # (Auto) 0.7, Eos # (Auto) 0.3, Baso # (Auto) 0.1, D-Dimer 0.48, Sodium 131 L, Potassium 4.1, Chloride 96 L, Carbon Dioxide 24, Anion Gap 15.1 H, BUN 8 L, Creatinine 0.70, Estimated Creat Clear 205, Estimated GFR 120, Est GFR ( Amer) 145, Glucose 485 H*, Calcium 9.0, Total Bilirubin 0.6, AST 26, ALT 24, Alkaline Phosphatase 112, Troponin I < 0.01, Total Protein 7.4, Albumin 4.5, Globulin 2.9, Albumin/Globulin Ratio 1.6, Lipase 79, TSH 2.57, Thyroxine (T4) 12.2 H 02/20/25 23:56: POC Glucose 400 H* 02/21/25 00:20: Troponin I < 0.01 02/21/25 03:13: Troponin I < 0.01 02/21/25 05:29: WBC 18.8 H D, RBC 5.45, Hgb 15.9, Hct 46.0, MCV 84.4, MCH 29.2, MCHC 34.6, RDW 12.2, Plt Count 228, MPV 11.3 H, Neut % (Auto) 72.2, Lymph % (Auto) 20.0, [place] % (Auto) 5.6, Eos % (Auto) 1.4, Baso % (Auto) 0.4, Neut # (Auto) 13.5 H, Lymph # (Auto) 3.8, [place] # (Auto) 1.1 H, Eos # (Auto) 0.3, Baso # (Auto) 0.1, Sodium 135 L, Potassium 3.4 L, Chloride 102, Carbon Dioxide 26, Anion Gap 10.4, BUN 11 D, Creatinine 0.60 L, Estimated Creat Clear 213, Estimated GFR 143, Est GFR ( Amer) 173, Glucose 170 H D, Calcium 8.8, Triglycerides 205 H, Cholesterol 161, LDL Cholesterol Direct 104.01, VLDL Cholesterol 41 H, HDL Cholesterol 20 L, Cholesterol/HDL Ratio 8.1 H 02/21/25 06:00: POC Glucose 168 H I & O for Last 24 hours: Intake & Output 02/18/25 02/19/25 02/20/25 02/21/25 11:59 11:59 11:59 11:59 Intake Total 0 / 0 Output Total 0 / 0 Balance 0 / 0 Weight 222 lb 9 oz Constitutional Constitutional: no acute distress *Routine Respiratory Exam Respiratory: Present decreased breath sounds and CTA bilaterally *Routine Cardiovascular Exam Cardiovascular: Present RRR; Absent murmur, gallop or rubs Meds Home Medications and Allergies Home Medications ?Medication ?Instructions ?Recorded ?Confirmed ?Type aspirin 81 mg tablet,delayed 81 mg PO DAILY 03/21/23 02/21/25 History release blood sugar diagnostic (ReliOn 06/29/23 04/16/24 History Prime Test Strips) blood-glucose meter (ReliOn Micro 06/29/23 04/16/24 History Glucose Monitor) pen needle, diabetic 32 gauge x #100 ea 07/05/23 04/16/24 Rx 5/16 (Comfort EZ Pen [place]) nitroglycerin 0.4 mg sublingual 0.4 mg sublingual Q5-15M PRN chest 10/13/23 02/20/25 Rx tablet pain #30 tabs ranolazine 1,000 mg 1,000 mg PO BID #180 tabs 10/13/23 02/21/25 Rx tablet,extended release,12 hr insulin glargine 100 unit/mL (3 10 unit (0.1 mL) SQ HS Diabetes 11/21/23 02/21/25 Rx mL) subcutaneous pen (Lantus #15 mL Solostar U-100 Insulin) metoprolol succinate 100 mg 100 mg PO DAILY #30 tabs 03/28/24 02/21/25 Rx tablet,extended release 24 hr (Toprol XL) metoprolol succinate 50 mg 25 mg PO DAILY 04/10/24 02/20/25 History tablet,extended release 24 hr metformin 500 mg tablet,extended 1,000 mg (2 x 500 mg) PO DAILY 05/24/24 02/20/25 Rx release 24 hr Diabetes #180 tabs atorvastatin 80 mg tablet 80 mg PO DAILY 02/20/25 02/20/25 History glipizide 10 mg tablet, extended 10 mg PO DAILY 02/20/25 02/20/25 History release 24 hr irbesartan 75 mg tablet 75 mg PO DAILY 02/20/25 02/20/25 History sitagliptin phosphate 100 mg 100 mg PO DAILY 02/20/25 02/20/25 History tablet (Januvia) ticagrelor 90 mg tablet (Brilinta) 90 mg PO BID 02/20/25 02/20/25 History famotidine 20 mg tablet 20 mg PO DAILY 02/21/25 02/21/25 History New Prescriptions to Start Prescriptions: Allergies Allergy/AdvReac Type Severity Reaction Status Date / Time bee pollen Allergy Verified 04/16/24 13:16 Assessment and Plan *Assessment and plan (1) Chest pain: Status: Acute Qualifiers: Chest pain type: unspecified Qualified Code(s): R07.9 - Chest pain, unspecified Category: Medical Code(s): R07.9 - Chest pain, unspecified (2) Unstable angina: Status: Acute Category: Medical Code(s): I20.0 - Unstable angina (3) CAD (coronary artery disease): Status: Acute Qualifiers: Associated angina: unspecified whether angina present Coronary Disease- Associated Artery/Lesion type: unspecified vessel or lesion type [place] vs. transplanted heart: [place] heart Qualified Code(s): I25.10 - Atherosclerotic heart disease of [place] coronary artery without angina pectoris Category: Medical Code(s): I25.10 - Atherosclerotic heart disease of [place] coronary artery without angina pectoris (4) Hyperglycemia due to type 2 diabetes mellitus: Status: Acute Qualifiers: Diabetes mellitus dedicated intermodal truck driver insulin use: without nursing home use Qualified Code(s): E11.65 - Type 2 diabetes mellitus with hyperglycemia Category: Medical Code(s): E11.65 - Type 2 diabetes mellitus with hyperglycemia (5) Hypertension: Status: Acute Qualifiers: Hypertension type: primary hypertension Qualified Code(s): I10 - Essential (primary) hypertension Category: Medical Code(s): I10 - Essential (primary) hypertension (6) GERD (gastroesophageal reflux disease): Status: Acute Qualifiers: Esophagitis presence: esophagitis presence not specified Qualified Code(s): K21.9 - Gastro-esophageal reflux disease without esophagitis Category: Medical Code(s): K21.9 - Gastro-esophageal reflux disease without esophagitis (7) Tobacco use: Status: Chronic Category: Social Hx Code(s): Z72.0 - Tobacco use (8) H/O heart artery stent: Status: Chronic Category: Surgical Code(s): Z95.5 - Presence of coronary angioplasty implant and graft (9) History of coronary artery bypass graft x 1: Status: Acute Category: Surgical Code(s): Z95.1 - Presence of aortocoronary bypass graft Plan 1. Chest pain with recent CABG in 04/2024 -normal troponins -echo prelim shows normal LVEF without effusion -symptoms consistent with prior angina before stenting/CABG. -Recommend [facility] today. Pt agrees. -on ASA and brilinta 2. DM, treated for >20 yrs -admission BS>400 -on glipizide and januvia -consider SGLT2 inhibitor in place of januvia if able to afford it 3. Tobacco use -cessation recommended 4. HTN -continue irbesartan and metoprolol 5. HLD -LDL 104 -resume statin and consider repatha as outpatient Resume home meds Left heart cath with grafts today via right femoral access.
[2025-02-21 08:09] LABS: Procalcitonin 0.053 ng/mL (0.0-2.0)
[2025-02-21] MEDS: ASPIRIN EC 81MG TABLET 81 MG PO (08:39)
[2025-02-21] MEDS: IRBESARTAN 75MG TABLET 75 MG PO (08:39)
[2025-02-21] MEDS: TICAGRELOR 90MG TABLET 90 MG PO (08:40)
[2025-02-21] MEDS: METOPROLOL SUCCINATE XL 25MG TABLET 25 MG PO (08:40)
[2025-02-21] MEDS: FAMOTIDINE 20MG TABLET 20 MG PO (08:40)
[2025-02-21] MEDS: glipiZIDE 5MG TABLET 10 MG PO (08:41)
[2025-02-21] MEDS: RANOLAZINE 500MG ER TABLET 1000 MG PO (08:41)
[2025-02-21] MEDS: SITAGLIPTIN 50MG TABLET 100 MG PO (08:41)
[2025-02-21 09:42] LABS: Hemoglobin A1C 11.9 % (4.0-6.0)
--- NOTE | 2025-02-21 09:52 | IR_ITS ---
APPROVED REPORT Patient Location: Inpatient PROCEDURES Left heart catheterization Left ventriculogram Selective coronary angiogram Selective engagement of the left internal mammary artery to the LAD INDICATION Unstable angina, Coronary artery disease, History of coronary bypass surgery Informed consent was obtained prior to the procedure. COMPLICATIONS none Estimated Blood Loss: less than 10ml TECHNIQUE One percent lidocaine used to anesthetize the right groin. The right femoral artery was accessed via the Seldinger technique and a 5 [place] sheath was placed in the right femoral artery. A JL 4, JR4 catheter were used to perform left heart catheterization, left ventriculogram selective coronary angiography as well as left internal mammary artery. At the end of the procedure the patient was transferred to the postop holding area in stable condition for sheath removal. ANGIOGRAPHIC RESULTS The left main artery Normal The left anterior descending artery Has a stent in the proximal segment which has proximal eccentric 70% in-stent restenosis. There is competitive flow from the left internal mammary artery The circumflex artery Codominant giving rise to 3 large obtuse marginal arteries which are widely patent with mild luminal irregularities nothing greater than 10 to 20% The right coronary artery Nondominant with a stent in the proximal segment which is widely patent free of in-stent restenosis with excellent proximal distal transitioning The CAMACHO ventriculogram reveals Preserved 55 to 60% The left ventricular end-diastolic pressure 10 mmHg LI to LAD is widely patent. 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 Clinical significance is currently undetermined Preserved ejection fraction Patent LI to the LAD with competitive flow from antegrade [place] circulation into the LAD as well as a patent LI Normal LVEDP PLAN 1. At this point it is unclear if the intercostal branches are producing a LI steal. I recommend an exercise Myoview to determine if anterior ischemia is present. If anterior ischemia is present I would recommend coiling the 2 intercostal branches which should direct all flow down the graft and into the [place] LAD 2. Maximize antianginal medications 3. LDL less than 55 achieved high intensity statin 4. Avoidance of tobacco products 5. Risk factor modification Electronically signed by : Yamil Johnston MD 02/26/2025 14:29:46
[2025-02-21 10:21] LABS: Procalcitonin 0.058 ng/mL (0.0-2.0)
--- NOTE | 2025-02-21 11:00 | CA_ITS ---
APPROVED REPORT EXAM: Comprehensive 2D, Doppler, and color-flow Echocardiogram Job Press Operator: Coreen Hager CRT Ht: 6 ft 0 in Wt: 222lbs BSA: 2.23 BP: 149/106 mmHg Indications: Chest Pain, Diabetes, Hyperlipidemia, Hypertension/HDD, CAD, CABG, STENTS, SMOKER M-Mode Dimensions RVDd 2.96 cm (0.9-2.6) LA Diam 2.57 cm (1.9-4.0) LVDd 4.45 cm (3.5-5.7) LVDs 3.30 cm (3.5-5.7) IVSd 1.61 cm (0.6-1.1) PWd 0.96 cm (0.6-1.1) EF (Teich) 51.10% FS 25.80% EDV (Teich) 90.10 mL ESV (Teich) 44.10 mL LV Diastology E Decel Time 150 (160-240 msec) E/A Ratio 0.85 MED A' 6.40 cm/s LAT A' 9.40 cm/s Aortic Valve AO Peak GR. 4.20 mmHg Mitral Valve MV E Max Madi. 45.0 (40-130 cm/s) MV A Velocity 54.0 (40-130 cm/s) E/A Ratio 0.85 MV PHT 44.0 ms Pulmonary Valve PV Peak Velocity 82.0 (50-150 cm/s) Tricuspid Valve TR P. Velocity 106.00 cm/s RAP Estimate 10.00 mmHg RVSP 14.50 mmHg Left Ventricle The left ventricle is normal size. The left ventricular systolic function is normal. The left ventricular ejection fraction is within the normal range. There is normal left ventricular wall thickness. There is normal LV segmental wall motion. The left ventricular diastolic function is normal. LVEF is 55%. Right Ventricle The right ventricle is normal size. The right ventricular systolic function is normal. Atria The left atrium size is normal. The right atrium size is normal. There is no Doppler evidence of interatrial shunt. Aortic Valve Aortic valve opens well. There is no aortic valvular stenosis. No aortic regurgitation is present. Mitral Valve The mitral valve is normal in structure. No evidence of mitral valve stenosis. Trace mitral regurgitation. Tricuspid Valve Tricuspid valve is grossly normal in structure and function. Trace tricuspid regurgitation. There is insufficient TR jet to estimate RVSP. Pulmonic Valve The pulmonary valve is normal in structure. Trace pulmonic regurgitation. Great Vessels The aortic root is normal in size. IVC is normal in size and collapses >50% with inspiration. Pericardium There is no pericardial effusion. Other Information Study Quality: Adequate Conclusion Normal biventricular systolic function. No significant valvular stenosis or regurgitation. Electronically signed by : Bree Stone MD 02/21/2025 11:36:11
[2025-02-21 11:23] LABS: POC Glucose,Bedside 214 (70-110)
[2025-02-21] MEDS: diphenhydrAMINE 50MG/ML VIAL 50 MG IV (12:54)
[2025-02-21] MEDS: HEPARIN 1,000 UNITS/500ML NS (CATH LAB) 3000 UNIT IV (12:54)
[2025-02-21] MEDS: LIDOCAINE 1% 10ML MDV 10 ML IJ (12:54)
[2025-02-21] MEDS: 0.9 % SODIUM CHLORIDE 500 ML 25 ML IV (12:54)
[2025-02-21] MEDS: MIDAZOLAM HCL 1MG/ML 5ML VIAL 1 MG IV (12:57)
[2025-02-21] MEDS: FENTANYL 100MCG/2ML VIAL 50 MCG IV (12:59)
[2025-02-21] MEDS: IOPAMIDOL-370 (76%);100ML BOTTLE 70 ML IV (14:12)
[2025-02-21 16:05] LABS: POC Glucose,Bedside 192 (70-110)
--- NOTE | 2025-02-21 16:15 | PC.NURSE ---
pt alert and oriented x4. Pt had heart cath. VS stable. Right groin site dressing clean, dry and intact, no hematoma noted. No chest pain reported.
--- NOTE | 2025-02-21 17:26 | P.DS_ITS ---
General Admission date:: 02/20/25 HPI HPI HPI: This is a 50-year-old male who has a past medical history significant for unstable angina, GERD, DE, hypertension, coronary artery disease, hyperlipidemia, and diabetes who presents with a chief complaint of chest pain. Due to patient's symptoms, he presented to the emergency room for evaluation. While in emergency room, EKG revealed sinus rhythm, QTc of 394, normal axis, and T wave inversion/biphasic T waves in the inferior leads-Per my read, initial troponin was negative, and chest x-ray was negative for any acute cardiopulmonary process. Patient's case was discussed with lathe operator contact lens who recommended admission and trending patient's troponin and evaluating patient in the a.m. Due to these recommendations, hospital medicine was contacted for further management. During my evaluation of the patient, he states that he has been having chest pain for the past 2 weeks that is midsternal, without any radiation, it is worse with coughing, was without any diaphoresis, without any significant shortness of breath, and is still ongoing. Patient voices taking 3 nitro that did not improve his symptomology. He states that his chest pain feels like something is squeezing his heart. Patient has known coronary artery disease with prior drug- eluting stents placed. Last left heart cath performed by Dr. Johnston in April of last year revealed extensive coronary artery disease and it was recommended that patient have a LI to the LAD-patient is status post coronary artery bypass and graft. He is currently denying any lightheadedness, dizziness, PND, orthopnea, lower extremity swelling, dyspnea with exertion, fever, chills, rigors, nausea, vomiting, or diarrhea additional pertinent labs obtained including white blood cell count of 12, D-dimer 0.48, sodium 131, chloride of 96, BUN of 8, blood glucose of 495, and troponin was less than 0.01.. Hospital Course Hospital Course Hospital Course: Kai Cat is a 50-year-old male who presented with chest pain and was admitted for ACS workup. #Chest pain #CABG (LI to LAD) #CAD with stents #Hypertension ? Presented with midsternal chest pain with radiation to left arm. Troponin, EKG without acute ischemic changes. ? Cardiology consulted, s/p LHC without occlusive disease. 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 Likely cause of chest pain. ? Dr. Johnston reached out to 's Dr. João Bryan to discuss case and whether fistula coiling would be appropriate. ? In the meantime, patient will follow-up with Dr. Johnston on 02/26/2025 at 11 AM. Recommended [place] for chest pain control. ? Continue metoprolol, aspirin 81, Brilinta, atorvastatin, irbesartan, ranolazine. #Type 2 diabetes ? Hemoglobin A1c 11.9%. ? Continue home Lantus 10 units, glipizide, Januvia, metformin. ? Will need to follow-up with PCP for further diabetes control. #Current tobacco smoker ? Patient not ready to quit, but states he has decreased since CABG. ? Does not want nicotine patch. Total time spent on discharge: 32 minutes on chart review, counseling, documentation, and direct care with patient. Exam Data for Last 24 hours Vital signs and Labs for Last 24 Hours: Temp Pulse Resp BP Pulse Ox O2 Del Method 98.5 F 68 20 121/74 100 Room Air 02/21/25 12:00 02/21/25 16:50 02/21/25 16:50 02/21/25 16:50 02/21/25 16:50 02/21/25 17:00 Laboratory Results - last 24 hr 02/20/25 21:17: WBC 12.0 H, RBC 5.73, Hgb 17.1, Hct 48.8, MCV 85.2, MCH 29.8, MCHC 35.0, RDW 12.2, Plt Count 258, MPV 11.7 H, Neut % (Auto) 60.8, Lymph % (Auto) 30.1, [place] % (Auto) 6.0, Eos % (Auto) 2.3, Baso % (Auto) 0.5, Neut # (Auto) 7.3, Lymph # (Auto) 3.6, [place] # (Auto) 0.7, Eos # (Auto) 0.3, Baso # (Auto) 0.1, D-Dimer 0.48, Sodium 131 L, Potassium 4.1, Chloride 96 L, Carbon Dioxide 24, Anion Gap 15.1 H, BUN 8 L, Creatinine 0.70, Estimated Creat Clear 205, Estimated GFR 120, Est GFR ( Amer) 145, Glucose 485 H*, Calcium 9.0, Total Bilirubin 0.6, AST 26, ALT 24, Alkaline Phosphatase 112, Troponin I < 0.01, Total Protein 7.4, Albumin 4.5, Globulin 2.9, Albumin/Globulin Ratio 1.6, Lipase 79, TSH 2.57, Thyroxine (T4) 12.2 H 02/20/25 23:56: POC Glucose 400 H* 02/21/25 00:20: Troponin I < 0.01 02/21/25 03:13: Troponin I < 0.01 02/21/25 05:29: WBC 18.8 H D, RBC 5.45, Hgb 15.9, Hct 46.0, MCV 84.4, MCH 29.2, MCHC 34.6, RDW 12.2, Plt Count 228, MPV 11.3 H, Neut % (Auto) 72.2, Lymph % (Auto) 20.0, [place] % (Auto) 5.6, Eos % (Auto) 1.4, Baso % (Auto) 0.4, Neut # (Auto) 13.5 H, Lymph # (Auto) 3.8, [place] # (Auto) 1.1 H, Eos # (Auto) 0.3, Baso # (Auto) 0.1, Sodium 135 L, Potassium 3.4 L, Chloride 102, Carbon Dioxide 26, Anion Gap 10.4, BUN 11 D, Creatinine 0.60 L, Estimated Creat Clear 213, Estimated GFR 143, Est GFR ( Amer) 173, Glucose 170 H D, Calcium 8.8, Triglycerides 205 H, Cholesterol 161, LDL Cholesterol Direct 104.01, VLDL Cholesterol 41 H, HDL Cholesterol 20 L, Cholesterol/HDL Ratio 8.1 H, Procalcitonin 0.053 02/21/25 06:00: POC Glucose 168 H 02/21/25 06:29: Hemoglobin A1c 11.9 H 02/21/25 09:38: Procalcitonin 0.058 02/21/25 11:12: POC Glucose 214 H 02/21/25 15:58: POC Glucose 192 H I & O for Last 24 hours: Intake & Output 02/18/25 02/19/25 02/20/25 02/21/25 23:59 23:59 23:59 23:59 Intake Total 0 / 0 Output Total 0 / 0 Balance 0 / 0 Weight 113.398 kg 100.953 kg Constitutional Constitutional: no acute distress *Routine HEENT Exam Head: Present normocephalic Eye: Present EOMI and PERRL ENT: Present mucous membranes moist *Routine Neck Exam Neck: Present supple; Absent lymphadenopathy *Routine Respiratory Exam Respiratory: Present CTA bilaterally *Routine Cardiovascular Exam Cardiovascular: Present RRR *Routine Abdominal Exam Abdominal: Present soft and normoactive bowel sounds; Absent tenderness *Routine Extremities Exam Extremities: Absent cyanosis, clubbing or edema *Routine Skin Exam Skin: Present warm; Absent rash *Routine Neurological Exam Neurological: Present alert and oriented X3 Results Data Completed and Pending Labs on day of discharge: Labs from last 24 hours 02/21/25 02/21/25 02/21/25 15:58 11:12 09:38 WBC RBC Hgb Hct MCV MCH MCHC RDW Plt Count MPV Neut % (Auto) Lymph % (Auto) [place] % (Auto) Eos % (Auto) Baso % (Auto) Neut # (Auto) Lymph # (Auto) [place] # (Auto) Eos # (Auto) Baso # (Auto) D-Dimer Sodium Potassium Chloride Carbon Dioxide Anion Gap BUN Creatinine Estimated Creat Clear Estimated GFR Est GFR ( Amer) Glucose POC Glucose 192 H 214 H Hemoglobin A1c Calcium Total Bilirubin AST ALT Alkaline Phosphatase Troponin I Total Protein Albumin Globulin Albumin/Globulin Ratio Triglycerides Cholesterol LDL Cholesterol Direct VLDL Cholesterol HDL Cholesterol Cholesterol/HDL Ratio Lipase Procalcitonin 0.058 TSH Thyroxine (T4) 02/21/25 02/21/25 02/21/25 06:29 06:00 05:29 WBC 18.8 H D RBC 5.45 Hgb 15.9 Hct 46.0 MCV 84.4 MCH 29.2 MCHC 34.6 RDW 12.2 Plt Count 228 MPV 11.3 H Neut % (Auto) 72.2 Lymph % (Auto) 20.0 [place] % (Auto) 5.6 Eos % (Auto) 1.4 Baso % (Auto) 0.4 Neut # (Auto) 13.5 H Lymph # (Auto) 3.8 [place] # (Auto) 1.1 H Eos # (Auto) 0.3 Baso # (Auto) 0.1 D-Dimer Sodium 135 L Potassium 3.4 L Chloride 102 Carbon Dioxide 26 Anion Gap 10.4 BUN 11 D Creatinine 0.60 L Estimated Creat Clear 213 Estimated GFR 143 Est GFR ( Amer) 173 Glucose 170 H D POC Glucose 168 H Hemoglobin A1c 11.9 H Calcium 8.8 Total Bilirubin AST ALT Alkaline Phosphatase Troponin I Total Protein Albumin Globulin Albumin/Globulin Ratio Triglycerides 205 H Cholesterol 161 LDL Cholesterol Direct 104.01 VLDL Cholesterol 41 H HDL Cholesterol 20 L Cholesterol/HDL Ratio 8.1 H Lipase Procalcitonin 0.053 TSH Thyroxine (T4) 02/21/25 02/21/25 02/20/25 03:13 00:20 23:56 WBC RBC Hgb Hct MCV MCH MCHC RDW Plt Count MPV Neut % (Auto) Lymph % (Auto) [place] % (Auto) Eos % (Auto) Baso % (Auto) Neut # (Auto) Lymph # (Auto) [place] # (Auto) Eos # (Auto) Baso # (Auto) D-Dimer Sodium Potassium Chloride Carbon Dioxide Anion Gap BUN Creatinine Estimated Creat Clear Estimated GFR Est GFR ( Amer) Glucose POC Glucose 400 H* Hemoglobin A1c Calcium Total Bilirubin AST ALT Alkaline Phosphatase Troponin I < 0.01 < 0.01 Total Protein Albumin Globulin Albumin/Globulin Ratio Triglycerides Cholesterol LDL Cholesterol Direct VLDL Cholesterol HDL Cholesterol Cholesterol/HDL Ratio Lipase Procalcitonin TSH Thyroxine (T4) 02/20/25 21:17 WBC 12.0 H RBC 5.73 Hgb 17.1 Hct 48.8 MCV 85.2 MCH 29.8 MCHC 35.0 RDW 12.2 Plt Count 258 MPV 11.7 H Neut % (Auto) 60.8 Lymph % (Auto) 30.1 [place] % (Auto) 6.0 Eos % (Auto) 2.3 Baso % (Auto) 0.5 Neut # (Auto) 7.3 Lymph # (Auto) 3.6 [place] # (Auto) 0.7 Eos # (Auto) 0.3 Baso # (Auto) 0.1 D-Dimer 0.48 Sodium 131 L Potassium 4.1 Chloride 96 L Carbon Dioxide 24 Anion Gap 15.1 H BUN 8 L Creatinine 0.70 Estimated Creat Clear 205 Estimated GFR 120 Est GFR ( Amer) 145 Glucose 485 H* POC Glucose Hemoglobin A1c Calcium 9.0 Total Bilirubin 0.6 AST 26 ALT 24 Alkaline Phosphatase 112 Troponin I < 0.01 Total Protein 7.4 Albumin 4.5 Globulin 2.9 Albumin/Globulin Ratio 1.6 Triglycerides Cholesterol LDL Cholesterol Direct VLDL Cholesterol HDL Cholesterol Cholesterol/HDL Ratio Lipase 79 Procalcitonin TSH 2.57 Thyroxine (T4) 12.2 H DS: Diagnosis Discharge Diagnosis (1) Chest pain: Status: Acute Code(s): R07.9 - Chest pain, unspecified Qualifiers: Chest pain type: unspecified Qualified Code(s): R07.9 - Chest pain, unspecified (2) Hyperglycemia due to type 2 diabetes mellitus: Status: Acute Code(s): E11.65 - Type 2 diabetes mellitus with hyperglycemia Qualifiers: Diabetes mellitus terminal press operator insulin use: without terminal press operator use Qualified Code(s): E11.65 - Type 2 diabetes mellitus with hyperglycemia (3) Leukocytosis: Status: Acute Code(s): D72.829 - Elevated white blood cell count, unspecified Qualifiers: Leukocytosis type: unspecified Qualified Code(s): D72.829 - Elevated white blood cell count, unspecified (4) CAD (coronary artery disease): Status: Acute Code(s): I25.10 - Atherosclerotic heart disease of [place] coronary artery without angina pectoris Qualifiers: Associated angina: unspecified whether angina present Coronary Disease- Associated Artery/Lesion type: unspecified vessel or lesion type [place] vs. transplanted heart: [place] heart Qualified Code(s): I25.10 - Atherosclerotic heart disease of [place] coronary artery without angina pectoris Meds Home Medications and Allergies Home Medications ?Medication ?Instructions ?Recorded ?Confirmed ?Type aspirin 81 mg tablet,delayed 81 mg PO DAILY 03/21/23 02/21/25 History release blood sugar diagnostic (ReliOn 06/29/23 04/16/24 History Prime Test Strips) blood-glucose meter (ReliOn Micro 06/29/23 04/16/24 History Glucose Monitor) pen needle, diabetic 32 gauge x #100 ea 07/05/23 04/16/24 Rx 5/16 (Comfort EZ Pen [place]) nitroglycerin 0.4 mg sublingual 0.4 mg sublingual Q5-15M PRN chest 10/13/23 02/20/25 Rx tablet pain #30 tabs ranolazine 1,000 mg 1,000 mg PO BID #180 tabs 10/13/23 02/21/25 Rx tablet,extended release,12 hr insulin glargine 100 unit/mL (3 10 unit (0.1 mL) SQ HS Diabetes 11/21/23 02/21/25 Rx mL) subcutaneous pen (Lantus #15 mL Solostar U-100 Insulin) metoprolol succinate 100 mg 100 mg PO DAILY #30 tabs 03/28/24 02/21/25 Rx tablet,extended release 24 hr (Toprol XL) metoprolol succinate 50 mg 25 mg PO DAILY 04/10/24 02/20/25 History tablet,extended release 24 hr metformin 500 mg tablet,extended 1,000 mg (2 x 500 mg) PO DAILY 05/24/24 02/20/25 Rx release 24 hr Diabetes #180 tabs atorvastatin 80 mg tablet 80 mg PO DAILY 02/20/25 02/20/25 History glipizide 10 mg tablet, extended 10 mg PO DAILY 02/20/25 02/20/25 History release 24 hr irbesartan 75 mg tablet 75 mg PO DAILY 02/20/25 02/20/25 History sitagliptin phosphate 100 mg 100 mg PO DAILY 02/20/25 02/20/25 History tablet (Januvia) ticagrelor 90 mg tablet (Brilinta) 90 mg PO BID 02/20/25 02/20/25 History famotidine 20 mg tablet 20 mg PO DAILY 02/21/25 02/21/25 History hydrocodone 5 mg-acetaminophen 300 1 tab PO Q6H PRN pain #28 tabs 02/21/25 Rx mg tablet pantoprazole 40 mg tablet,delayed 40 mg PO DAILY #30 tabs 02/21/25 Rx release (Protonix) New Prescriptions to Start Prescriptions: hydrocodone-acetaminophen João Plasenciaazole [Protonix] João Plasencia Allergies Allergy/AdvReac Type Severity Reaction Status Date / Time bee pollen Allergy Verified 04/16/24 13:16 Discharge Plan Disposition Patient Disposition: Home, Self-Care Condition: Fair Follow up Plan Follow up with: Yamil Johnston MD [Staff Physician] - 02/26/25 11:00 am (Needs to see Dr. Johnston.) Dusty Ortiz MD [Staff Physician] - 03/01/25 1:00 pm Prescriptions/Medication Reconciliation: New hydrocodone-acetaminophen 5-300 mg tablet 1 tab PO Q6H PRN (Reason: pain) Qty: 28 0RF pantoprazole [Protonix] 40 mg tablet,delayed release (DR/EC) 40 mg PO DAILY Qty: 30 0RF Continued (DME) pen needle, diabetic [Comfort EZ Pen [place]] 32 gauge x 5/16 needle See Rx Instructions .Route Qty: 100 0RF Rx Instructions: As directed ranolazine 1,000 mg tablet extended release 12 hr 1,000 mg PO BID Qty: 180 3RF nitroglycerin 0.4 mg tablet, sublingual 0.4 mg sublingual Q5-15M PRN (Reason: chest pain) Qty: 30 1RF Rx Instructions: do not exceed 3 doses per episode metoprolol succinate [Toprol XL] 100 mg tablet extended release 24 hr 100 mg PO DAILY Qty: 30 5RF metoprolol succinate 50 mg tablet extended release 24 hr 25 mg PO DAILY insulin glargine [Lantus Solostar U-100 Insulin] 100 unit/mL (3 mL) insulin pen 10 unit SQ HS Qty: 15 2RF metformin 500 mg tablet extended release 24 hr 1,000 mg PO DAILY Qty: 180 0RF aspirin 81 mg tablet,delayed release (DR/EC) 81 mg PO DAILY (DME) blood-glucose meter [ReliOn Micro Glucose Monitor] [facility] See Rx Instructions .Route Rx Instructions: As directed (DME) ReliOn Prime Test Strips Strip See Rx Instructions .Route Rx Instructions: As directed atorvastatin 80 mg tablet 80 mg PO DAILY Rx Instructions: TAKE 1 TABLET BY MOUTH EVERY DAY AT BEDTIME glipizide 10 mg tablet extended release 24hr 10 mg PO DAILY Rx Instructions: TAKE 1 TABLET BY MOUTH ONCE DAILY FOR DIABETES irbesartan 75 mg tablet 75 mg PO DAILY Rx Instructions: Take 1 tablet by mouth once daily Januvia 100 mg tablet 100 mg PO DAILY Rx Instructions: TAKE 1 TABLET BY MOUTH ONCE DAILY FOR DIABETES ticagrelor [Brilinta] 90 mg tablet 90 mg PO BID Rx Instructions: Take 1 tablet by mouth twice daily famotidine 20 mg tablet 20 mg PO DAILY Problem Reconciliation Problems Reviewed?: Yes Patient Discharge Instructions Patient Instructions: Heart-Healthy Diet, DI for Cardiac Catheterization, DI for Surgical Site Infection, DI for Chest Pain, Cardiology Catheterization Patient / Family Discharge Instructions Print Language: Uzbek Providers Primary Care Provider: Provider,Referral Admit Provider: João Plasencia Attending Provider: João Plasencia
--- NOTE | 2025-02-22 10:47 | SW/DCPLANNER ---
Spoke with patient on the phone. Patient stated that he is doing good. Patient stated that he is aware of his upcoming appointments. Patient stated that he was able to get his medicine picked up from [facility]. Patient stated that he has no concerns or questions at this time. Kendell Mays
== END 2025-02-21 17:55 | disposition home or self-care (01) ==
LOC: ER 22:44 → 2ND 22:48
PROVIDERS: Internal Medicine; Nurse Practitioner Family; Physician Assistant; Admitting Provider Student in an Organized Health Care Education/Training Program; Emergency Provider Emergency Medicine; Visit Provider Student in an Organized Health Care Education/Training Program
PROC: 4A023N7 Measurement of Cardiac Sampling and Pressure, Left Heart, Percutaneous Approach (ICD-10-PCS; CPT 93452; principal; 2025-02-21 14:00)
DX: I25.110 Atherosclerotic heart disease of native coronary artery with unstable angina pectoris (principal); T82.855A Stenosis of coronary artery stent, initial encounter; E11.65 Type 2 diabetes mellitus with hyperglycemia; I10 Essential (primary) hypertension; K21.9 Gastro-esophageal reflux disease without esophagitis; Z95.1 Presence of aortocoronary bypass graft; F17.210 Nicotine dependence, cigarettes, uncomplicated; R07.9 Chest pain, unspecified; Z79.4 Long term (current) use of insulin; Z79.899 Other long term (current) drug therapy; Z91.030 Bee allergy status; Z79.82 Long term (current) use of aspirin; Y83.1 Surgical operation with implant of artificial internal device as the cause of abnormal reaction of the patient, or of later complication, without mention of misadventure at the time of the procedure
CPT/HCPCS: 36415; 71046; 80048; 80053; 80061; 82962; 83036; 83690; 84145; 84436; 84443; 84484; 85025; 85378; 93005; 93306; 93459; 99152; 99285; C1725; C1769; C1894; G0378; J1200; J1644; J2250; J3010; Q9967

== ENCOUNTER 2025-03-12 12:39 | Outpatient (CLI) | payer MEDICAID, SELFPAY ==
--- NOTE | 2025-03-12 | CA_ITS ---
APPROVED REPORT Exam: Pharmacologic Technologist: Jennifer Zarco Ht: 6 ft 1 in Wt: 227 lbs BSA: 2.27 m2 HR: 91 bpm BP: 116/64 mmHg Stress Test Details Test: Lexiscan HR Resting HR: 91 bpm Max Heart Rate (APMHR): 171.877228 bpm Max HR Achieved: 102 bpm Target HR (85% APMHR): 145.384735 bpm % of APMHR: 59.65 Recovery HR: 86 bpm BP Resting BP: 116.0/64.0 mmHg Max BP: 127.0/78.0 mmHg Recovery BP: 120.0/76.0 mmHg ECG Resting ECG: Sinus rhythm Stress ECG Conclusion Symptoms: - Arrhythmias/Ectopy: - ST-T Changes: Less than [address] depression. Conclusion: Artifact, EKG unremarkable due to Lexiscan infusion. Electronically signed by : Bree Stone MD 03/13/2025 13:05:41
--- OUTSIDE RECORDS SUMMARY | 2025-03-12 12:42 | XMS_ITS | Clinical Summary ---
Author Organization [facility] Address [address] [place] [address] Phone Care Team Providers Care Medical Claims Analyst Name Role Phone Unavailable Primary Care Provider Unavailabl e Allergies No known active allergies Medications No known medications Active Problems No known active problems Immunizations Immunization Administration Dates Next Due Td, Unspecified Formulation 10/03/2009 Surgical History Surgery Date Site/Laterality Comments NECK SURGERY Family History Medical History Relation Name Comments High Blood Pressure Mother Relation Name Status Comments Mother (Age 67) Social History Tobacco Use Types Packs/Day Years Used Date Smoking Tobacco: Every Day Cigarettes Last attempted to quit: 10/03/1989 Smokeless Tobacco: Never Tobacco Cessation:Ready to Q uit: No; Counseling Given: No PHQ-2 Answer Date Recorded PHQ-2 Score 0 10/11/2019 Sex and Gender Information Value Date Recorded Sex Assigned at Not on file Legal Sex Male 11:51 PM EDT Gender Identity Not on file Sexual Orientation Not on file Obstetrics History Last Filed Vital Signs Vital Sign Reading Time Taken Comments Blood Pressure 100/70 10/11/2019 9:33 AM EST Pulse 68 10/11/2019 9:33 AM EST Temperature 36.7 C (98 F) 10/11/2019 9:33 AM EST Respiratory Rate 12 10/11/2019 9:33 AM EST Oxygen Saturation - - Inhaled Oxygen Concentration - - Weight 110.9 kg (244 lb 9.6 oz) 10/11/2019 9:33 AM EST Height 185.4 cm (6' 1 ) 10/11/2019 9:33 AM EST Body Mass Index 32.27 10/11/2019 9:33 AM EST Plan of Treatment Health Maintenance Due Date Last Done Comments Annual Wellness Exam 02/07/1979 Hepatitis B Vaccine (1 of 3 - 19+ 3-dose series) 02/07/1995 DTaP/TDaP/Td (1 - Tdap) 10/04/2009 10/03/2009 Cologuard 02/07/2021 Colon Cancer Screening 02/07/2021 Colonoscopy 02/07/2021 FIT 02/07/2021 Sigmoidoscopy 02/07/2021 Virtual Colonography 02/07/2021 COVID-19 Vaccine (1 - 2023-2 5 season) 2024 Influenza Vaccine (Season Ended) 2025 Meningococcal B Vaccine Aged Out No l onger eligible based on patient's age to complete this topic Pneumococcal Vaccine 0-49 Aged Out No longer eligible based on patient's age to complete this topic Goals Goal Patient Goal Type Associated Problems Recent Progress Patient-Stated? Author Maintain a healthy diet, exercise regularly and maintain an ideal body weight General No Margy Drake RMA Stay Tobacco Free Lifestyle No Theresa Tafoya, DO Insurance [facility]
--- OUTSIDE RECORDS SUMMARY | 2025-03-12 12:42 | XMS_ITS | Clinical Summary ---
Author Organization [facility] Address [address] [place] [address] Care Team Providers Care Newspaper Columnist Name Role Phone Gail Stark Primary Care Provider [phone] Yamil Johnston MD Unavailable [phone] Allergies Active Allergy Reactions Criticality Noted Date Comments Bee Pollen Swelling High 03/28/2024 Medications famotidine (Pepcid) 20 MG tablet Take 1 tablet (20 mg) by mouth 1 (one) time each day. 4 Active BD Pen Needle Randa 2nd Gen 32G X 4 MM misc USE DIRECTED 3 Active metFORMIN XR (Glucophage-XR) 500 MG 24 hr tablet Take 1 tablet (500 mg) by mouth 1 (one) time each day with dinner. 3 Active Januvia 100 MG tablet Take 1 tablet (100 mg) by mouth 1 (one) time each day. 3 Active Continuous Glucose Sensor (Dexcom G7 Sensor) misc 1 sensor every 10 (ten) days. 3 each 11 4 Active atorvastatin (Lipitor) 80 MG tablet Take 1 tablet (80 mg) by mouth every night. 30 tablet 3 4 Active acetaminophen (Tylenol) 325 MG tablet Take 2 tablets (650 mg) by mouth every 6 (six) hours if needed for pain. 100 tablet 4 Active clopidogrel (Plavix) 75 MG tablet Take 1 tablet (75 mg) by mouth 1 (one) time each day. 30 tablet 3 4 Active docusate sodium 100 MG capsule Take 100 mg by mouth 2 (two) times a day if needed for constipation. 20 capsule 4 Active Additional Information Patient not taking.Reported on 05/17/2024 metoprolol tartrate 37.5 MG tablet Take 37.5 mg by mouth every 8 (eight) hours. 135 tablet 3 4 Active pen needle, diabetic 31G X 5 MM misc Use as directed with insulin pen. 100 each 4 Active insulin glargine (Basaglar KwikPen) 100 UNIT/ML injection pen Inject 50 Units under the skin 1 (one) time each day in the morning. 15 mL 3 4 Active pen needle, diabetic 31G X 5 MM misc Use as directed with insulin pen. 100 each 11 4 Active insulin lispro (HumaLOG KWIKPEN) 100 UNIT/ML injection pen Inject 20 Units under the skin 3 (three) times a day with meals. Add a correction scale dose as follows: blood sugar 150-199 use 2 units, 200-249 use 4 units, 250-299 use 6 units, 300-349 use 8 units, 350-399 use 10 units, >399 12 units and call provider. 15 mL 3 4 Active Blood Glucose Monitoring Suppl device Test three times daily 1 each 4 Active glucose blood test strip Test three times daily 300 strip 11 4 Active Lancets misc Test three times daily 300 each 4 Active Alcohol Sheets (Alcoh-Wipe) sheet Use as directed. 300 each 4 Active apixaban (Eliquis) 5 MG tablet Take 1 tablet (5 mg) by mouth 2 (two) times a day. 60 tablet 1 4 Active Farxiga 10 MG tablet Take 1 tablet (10 mg) by mouth 1 (one) time each day. 4 Active methocarbamol (Robaxin) 500 MG tablet Take 1 tablet (500 mg) by mouth 4 (four) times a day. 40 tablet 4 Active Active Problems Problem Noted Date Diagnosed Date Postoperative atrial fibrillation 04/24/2024 S/P CABG (coronary artery bypass graft) 04/20/20 24 HTN (hypertension) 04/20/2024 DM (diabetes mellitus), type 2 04/20/2024 CAD (coronary artery disease) 04/20/2024 GERD (gastroesophageal reflux disease) Tobacco abuse 04/20/2024 H/O heart artery stent 04/20/2024 Post-op pain 04/20/2024 BMI 30.0-30.9,adult 04/12/2024 Resolved Problems Problem Noted Date Diagnosed Date Resolved Date Volume overload 04/24/2024 05/17/2024 Anxiety 04/20/2024 04/24/2024 Overview (04/20/2024): Home meds when appropriate NM (myocardial infarction) 04/20/2024 0 04/24/2024 Overview (04/20/2024): ASA, statin, BB as able Postoperative anemia 04/20/2024 024 Acute hypoxic respiratory failure 04/20/2024 04/24/2024 Overview (04/20/2024): Plan for fast track extubation Wean supp O2 as able Electrolyte abnormality 04/20/202404/03 Overview (04/20/2024): Monitor and replete as needed Leukocytosis 04/20/2024 05/17/2024 Tachycardia 04/20/2024 04/24/2024 Overview (04/22/2024): Did not take home metop for several days prior to surgery Required esmolol and metop IV in OR BB as needed Immunizations Immunization Administration Dates Next Due Td (adult), unspecified 10/03/2009 Family History Medical History Relation Name Comments Anesthesia problems Neg Hx Malig Hyperthermia Neg Hx Social History Tobacco Use Types Packs/Day Years Used Date Smoking Tobacco: Every Day Cigarettes Smokeless Tobacco: Former Chew Tobacco Cessation:Ready to Q uit: Not Asked; Counseling Given: Not Answered Alcohol Use Standard Drinks/Week Comments Never 0 (1 standard drink = 0.6 oz pur e alcohol) Social Connection and Isolation Panel Answer Date Recorded Frequency of Communication with Friends and Fami ly Not on file 04/23/2024 Frequency of Social Gatherin gs with Friends and Family Not on file 04/23/2024 Attends Temple Services Not on file 04/23 Active Member of Clubs or Organizations Not on f ile 04/23/2024 Attends Club or Organization Meetings Not on kathryn e 04/23/2024 Are you , , di vorced, , never , or living with a partner? Living with partner 04/23/2024 Hunger Vital Sign Answer Date Recorded Within the past 12 months, y ou worried that your food would run out before you got the money to buy more. Never true 04/23/20 24 Within the past 12 months, t he food you bought just didn't last and you didn't have money to get more. Never true 04/23/2024 PRAPARE - Transportation Answer Date Re corded In the past 12 months, has l ack of transportation kept you from medical appointments or from getting medications? No 04/03 In the past 12 months, has l ack of transportation kept you from meetings, work, or from getting things needed for daily living? No 04/23/2024 Housing Stability Vital Sign Answer Ezequiel e Recorded In the last 12 months, was t here a time when you were not able to pay the mortgage or rent on time? No 04/23/2024 In the last 12 months, how many places have you lived? 1 04/23/2024 In the last 12 months, was t here a time when you did not have a steady place to sleep or slept in a chcf (including now)? No 04/23/2024 CAGE ASSESSMENT Answer Date Recorded Cage unable to access Not on file 04/22/2024 Cage max number of drinks Not on file 2023 Cage Beverages a week Not on file 04/22/2024 Have you ever felt you should CUT down on your d rinking? 0 04/22/2024 Have you been ANNOYED by people criticizing your drinking? 0 04/22/2024 Have you felt GUILTY about your drinking? 0 04/22/2024 Have you had a drink first t shay in the morning (EYE-RABBIT FANCIER) to steady your nerves or to get rid of a hangover? 0 04/22/2024 CAGE Questionnaire Score 0 024 Utilities Answer Date Recorded In the past 12 months has th e electric, gas, oil, or water company threatened to shut off services in your home? No 04/23/2024 Sex and Gender Information Value Date Recorded Sex Assigned at Not on file Legal Sex Male 9:42 AM EDT Gender Identity Not on file Sexual Orientation Not on file Occupation Industry Job Start Date Job End Date disabled Not on file Not on file Not on file Last Filed Vital Signs Vital Sign Reading Time Taken Comments Blood Pressure 105/72 05/17/2024 12:17 PM EDT Pulse 100 05/17/2024 12:17 PM EDT Temperature 37 C (98.6 F) 04/26/2024 11:20 AM EDT Respiratory Rate 24 04/26/2024 4:31 AM EDT Oxygen Saturation 97% 05/17/2024 12:17 PM EDT Inhaled Oxygen Concentration - - Weight 103 kg (227 lb 1.2 oz) 05/17/2024 12:17 P M EDT Height 185.4 cm (6' 0.99 ) 04/21/2024 6:00 AM ED T Body Mass Index 29.97 04/21/2024 6:00 AM EDT Plan of Treatment Health Maintenance Due Date Last Done Comments [facility]-Depression Screening 1976 [facility]-HIV Screening 1976 [facility]-Hepatitis C Screening 1976 [facility]-/Child/Adol SDOH Screenings 1976 Diabetes: Dental Exam 02/07/1986 [facility]- SDOH Screenings 02/07/1994 [facility]-Adult SDOH Screenings 02/07/1994 [facility]-Hepatitis B Vaccines (1 of 3 - 19+ 3-dose series) 02/07/1995 [facility]-Pneumococcal Vaccine: Pediatrics (0 to 5 Years) and At-Risk Patients (6 to 49 Years) (1 of 2 - PCV) 02/07/1995 [facility]-DTaP,Tdap,and Td Vaccines (1 - Tdap) 10/04/2009 10/03/2009 CT Colonography 02/07/2021 Colonoscopy 02/07/2021 FIT-DNA 02/07/2021 FIT 02/07/2021 FOBT 02/07/2021 Sigmoidoscopy 02/07/2021 [facility]-Colorectal Cancer Screening 02/07/2021 [id number] Vaccine ( - season) 2024 [facility]-Diabetes: Hemoglobin A1C 07/12/2024 04/12/2024 [facility]-Influenza Vaccine (Season Ended) 2025 [facility]-Zoster Vaccines (1 of 2) 02/07/2026 [facility]-Obesity Intervention Completed 024, 04/19/2024, 04/13/2024, Additional history exists HPV Vaccines Aged Out No longer eligi ble based on patient's age to complete this topic [facility]-HIB Vaccines Aged Out No longer e ligible based on patient's age to complete this topic [facility]-Hepatitis A Vaccines Aged Out No longer eligible based on patient's age to complete this topic [facility]-IPV Vaccines Aged Out No longer e ligible based on patient's age to complete this topic [facility]-Rotavirus Vaccines Aged Out No lo nger eligible based on patient's age to complete this topic Procedures Procedure Name Priority Date/Time Associated Diagnosis Comments HEMOGLOBIN A1C Routine 04/12/2024 12:31 PM EDT Coronary artery disease involving [place] coronary artery of [place] heart without angina pectoris from Last 3 Months or Most Recently Relevant to Health Maintenance Results * (ABNORMAL) Hemoglobin A1c (04/12/2024 12:31 PM EDT) Hemoglobin A1c 11.2(H) <5.7 % 04/12/2024 2:44 PM EDT [facility] Blood Venous blood specimen / Unknown Venipuncture / Unknown 04/12/2024 12:31 PM EDT 04/12/2024 12:31 PM EDT Narrative [facility] - 04/12/2024 2:44 PM EDT HA1C Interpretive Data: Diagnosis of Diabetes: Diabetic > or = 6.5% Pre-diabetic 5.7 to 6.4% Non-diabetic < or = 5.6% Glycemic Targets for Type I and Type II Diabetics: Non- Adults <7.0% Adults <6.0% Children and Adolescents <7.5% Source: [place] [employer]. Standards of medical care in diabetes,2017. Diabetes Care.2017:40 (suppl 1):S1-S135. HbA1c assay performed by an ion-exchange chromatography method that is certified traceable to the [facility]. us Ari Falk MD LAB BLOOD ORDERABLES Final R esult [facility] [address] [place] [address] from Last 3 Months or Most Recently Relevant to Health Maintenance Insurance [employer] [facility] MEDICAID Advance Directives * Full Code (Latest Code Status on File) Date Activated Date Inactivated Comments 04/20/2024 3:16 PM 04/26/2024 7:20 PM Question Answer Comments Patient has decision-making capacity? Yes Care Teams Newspaper Columnist Relationship Specialty Start Date End Date Gail Stark PA [address] [place] [address] PCP - General 04/12/24 Yamil Johnston MD [address] [facility] [address] [place] [address] Referring Physician 04/23/24
--- OUTSIDE RECORDS SUMMARY | 2025-03-12 12:42 | XMS_ITS | Encounter Summary ---
Author Organization Healthcare Address [address] [place] [address] Care Team Providers Care Meteorology Professor Name Role Phone Gail Stark Primary Care Provider [phone] Yamil Johnston MD Unavailable [phone] Encounter Details Date Type Department Care Team (Late st Contact Info) Description 04/23/2024 Lab Requisition [facility] [address] [place] [address] Desmond Gao MD [address] [facility] [address] [place] [address] Encounter for general adult medical examination without abnormal findings Social History Tobacco Use Types Packs/Day Years Used Date Smoking Tobacco: Every Day Cigarettes Smokeless Tobacco: Former Chew Alcohol Use Standard Drinks/Week Comments Never 0 (1 standard drink = 0.6 oz pur e alcohol) Social Connection and Isolation Panel Answer Date Recorded Frequency of Communication with Friends and Fami ly Not on file 04/23/2024 Frequency of Social Gatherin gs with Friends and Family Not on file 04/23/2024 Attends Spiritism Services Not on file 04/23 Active Member [...] place to sleep or slept in a halfway (including now)? No 04/23/2024 CAGE ASSESSMENT Answer [...] drink first t shay in the morning (EYE-SPEED BELT SANDER) to steady your nerves or to get [...] file Not on file Not on file documented as of this encounter Functional Status * Calculated C-SSRS Risk Score (Lifetime/Recent) Answer Date of Assessment Author No Risk Indicated 04/25/2024 8:00 PM EDT Anai Marcos RN * Question Answer Date of Assessment Author 1. Wish to be (Past 1 Month) No 024 8:00 PM EDT Anai Marcos RN 2. Non-Specific Active Suici jose Thoughts (Past 1 Month) No 04/25/2024 8:00 PM EDT Anai Marcos RN 3. Active Suicidal Ideation with any Methods (Not Plan) Without Intent to Act (Past 1 Month) No 04/25/2024 8:00 PM EDT Anai Marcos R N 4. Active Suicidal Ideation with Some Intent to Act, Without Specific Plan (Past 1 Month) No 04/25/2024 8:00 PM EDT Anai Marcos R N 5. Active Suicidal Ideation with Specific Plan and Intent (Past 1 Month) No 04/25/2024 8:00 PM EDT Anai Marcos R N 6. Suicidal Behavior (Lifetime) No 8:00 PM EDT Anai Marcos RN documented as of this encounter Plan of Treatment Not on file documented as of this encounter Procedures Procedure Name Priority Date/Time Associated Diagnosis Comments MULTI DRUG RESISTANCE TEST Routine 04/23/2024 9:00 AM EDT Encounter for general adult medical examination without abnormal findings documented in this encounter Results * Multi Drug Resistance Test (04/23/2024 9:00 AM EDT) Culture No growth at day 1 04/24/2024 6:59 AM EDT [facility] Swab (Nares and Krys Rectal) 04/23/2024 9:00 AM EDT 04/23/2024 9:13 AM EDT us Desmond Gao MD LAB MICROBIOLOGY - GEN ERAL ORDERABLES Final Result [facility] [address] [place] [id number] documented in this encounter Visit Diagnoses Diagnosis Encounter for general adult medical examination without abnormal findings documented in this encounter Additional Health Concerns Assessment Noted Time A fall risk assessment has been complete d for the patient 04/19/2024 10:13 AM EDT A Body Mass Index follow-up plan has been documented for the patient 04/26/2024 2:41 PM EDT documented as of this encounter Care Teams Meteorology Professor Relationship Specialty Start Date End Date Gail Stark PA [address] [place] [address] PCP - General 04/12/24 Yamil Johnston MD [address] [place] [address] Referring Physician 04/23/24 documented as of this encounter
--- NOTE | 2025-03-12 13:00 | NM_ITS ---
APPROVED REPORT Exam: Nuclear Stress Test Indication: cp..soa Patient Location: Outpatient Stress Tech: Jennifer Zarco ID Tech:Sangeeta Lara TRAVISJeanmarie RT(R)(N) Ht: 6 ft 1 in Wt: 232 lbs HR: 88 bpm BP: 116/64 mmHg BSA: 2.29 m2 TID: 1.22 BMI: 30.6 History: cp..soa Procedure: Patient received 0.4 mg of intravenous Lexiscan, resting heart rate 88 bpm, resting blood pressure 116/64 mmHg, with Lexiscan maximum heart rate achieved was 103 bpm which is 85 % of the maximum predicted heart rate and blood pressure was 128/78 mmHg. With Lexiscan, patient denied any complaint of chest pain. Cardiac Stress and Resting SPECT Images: Cardiac Stress and Resting SPECT images were obtained using technetium 99m Myoview 32.2 mCi stress and 10.78 mCi at rest. Resting and stress imaging in supine and prone positions demonstrate no evidence of fixed or reversible perfusion defects. There is increase in transient ischemic dilatation ratio (TID 1.22), suggestive of possible multivessel disease or balanced ischemia. Gated imaging demonstrates normal global and regional LV systolic function. LVEF is calculated at 56%. Conclusion: No evidence of fixed or reversible perfusion defects. There is increase in transient ischemic dilatation ratio (TID 1.22), suggestive of possible multivessel disease or balanced ischemia. Gated imaging demonstrates normal global and regional LV systolic function. LVEF is calculated at 56%. Electronically signed by : Bree Stone MD 03/13/2025 12:54:46
[2025-03-12] MEDS: REGADENOSON 0.4MG/5ML SYRINGE 0.4 MG IV (14:13)
[2025-03-12] MEDS: ISOTOPE MYOVIEW (PER STUDY) 1 DOSE IV (14:13)
[2025-03-12] MEDS: SODIUM CHLORIDE 0.9% 10ML SYR (RAD ONLY) 10 ML IV ×2 (14:13)
== END 2025-03-12 23:59 | disposition home or self-care (01) ==
LOC: RAD 12:40
PROVIDERS: PCP Family Medicine; Visit Provider Physician Assistant
DX: I25.10 Atherosclerotic heart disease of native coronary artery without angina pectoris (principal); I25.118 Atherosclerotic heart disease of native coronary artery with other forms of angina pectoris; Z95.1 Presence of aortocoronary bypass graft
CPT/HCPCS: 78452; 93017; 93018; A9502; J2785

== ENCOUNTER 2025-06-06 13:23 | Outpatient (CLI) | payer MEDICAID, SELFPAY ==
--- OUTSIDE RECORDS SUMMARY | 2025-06-06 13:26 | XMS_ITS | Clinical Summary ---
Author Organization [facility] Address [address] [place] [address] Care Team Providers Care Second Officer Name Role Phone Gail Stark Primary Care Provider [phone] Yamil Johnston MD Unavailable [phone] Allergies Active Allergy Reactions Criticality Noted Date [...] 04/24/2024 Overview (04/20/2024): Home meds when appropriate OK (myocardial infarction) 04/20/2024 0 04/24/2024 Overview (04/20/2024): [...] and Family Not on file 04/23/2024 Attends Jain Services Not on file 04/23 Active Member of Clubs or Organizations Not on f ile 04/23/2024 Attends Club or Organization Meetings Not on akthryn e 04/23/2024 Are you , , di [...] place to sleep or slept in a penitentiary (including now)? No 04/23/2024 CAGE ASSESSMENT Answer [...] drink first t shay in the morning (EYE-PRODUCT SCIENTIST) to steady your nerves or to get [...] [facility]-HIV Screening 1976 [facility]-Hepatitis C Screening 1976 [facility]-Infant/Child/Adol SDOH Screenings 1976 Diabetes: Dental Exam 02/07/1986 [...] 02/07/2021 Sigmoidoscopy 02/07/2021 [facility]-Colorectal Cancer Screening 02/07/2021 [id number] Vaccine ( - season) 2024 [facility]-Diabetes: Hemoglobin A1C 07/12/2024 04/12/2024 [facility]-Influenza Vaccine (#1) 2025 [facility]-Zoster Vaccines (1 of 2) 02/07/2026 [...] 12:31 PM EDT Coronary artery disease involving [place] coronary artery of [place] heart without angina pectoris from Last 3 [...] Adults <6.0% Children and Adolescents <7.5% Source: [place] Diabetes [employer]. Standards of medical care in diabetes,2017. Diabetes Care.2017:40 (suppl 1):S1-S135. HbA1c assay performed by an ion-exchange chromatography method that is certified traceable to the [facility]. us Ari Falk MD LAB BLOOD ORDERABLES Final R esult [facility] [address] [place] [address] from Last 3 Months or Most Recently Relevant to Health Maintenance Insurance [facility] MEDICAID Advance Directives * Full Code (Latest Code Status on File) Date Activated Date Inactivated Comments 04/20/2024 3:16 PM 04/26/2024 7:20 PM Question Answer Comments Patient has decision-making capacity? Yes Care Teams Second Officer Relationship Specialty Start Date End Date Gail Stark PA [address] [place] [address] PCP - General 04/12/24 Yamil Johnston MD [address] [facility] [address] [place] [address] Referring Physician 04/23/24
--- OUTSIDE RECORDS SUMMARY | 2025-06-06 13:26 | XMS_ITS | Encounter Summary ---
Author Organization Healthcare Address [address] [place] [address] Care Team Providers Care Warehouse Attendant Name Role Phone Gail Stark Primary Care Provider [phone] Yamil Johnston MD Unavailable [phone] Encounter Details Date Type Department Care Team (Late st Contact Info) Description 04/23/2024 Lab Requisition [facility] [address] [place] [address] Desmond Gao MD [address] [facility] [address] [place] [address] Encounter for general adult medical examination without [...] and Family Not on file 04/23/2024 Attends Yarsani Services Not on file 04/23 Active Member [...] place to sleep or slept in a half-way (including now)? No 04/23/2024 CAGE ASSESSMENT Answer [...] drink first t shay in the morning (EYE-EMPLOYEE RELATIONS CONSULTANT) to steady your nerves or to get [...] at day 1 04/24/2024 6:59 AM EDT [facility] Swab (Nares and Krys Rectal) 04/23/2024 9:00 AM EDT 04/23/2024 9:13 AM EDT us Desmond Gao MD LAB MICROBIOLOGY - GEN ERAL ORDERABLES Final Result [facility] [address] [place] [id number] documented in this encounter Visit Diagnoses Diagnosis [...] documented as of this encounter Care Teams Warehouse Attendant Relationship Specialty Start Date End Date Gail Stark PA [address] [place] [address] PCP - General 04/12/24 Yamil Johnston MD [address] [facility] [address] [place] [id number] Referring Physician 04/23/24 documented as of this encounter
--- OUTSIDE RECORDS SUMMARY | 2025-06-06 13:26 | XMS_ITS | Clinical Summary ---
Author Organization [facility] Address [address] [place] [address] Phone Care Team Providers Care Plant Control Operator Name Role Phone Unavailable Primary Care Provider [...] COVID-19 Vaccine (1 - 2023-2 5 season) 2025 Influenza Vaccine (#1) 2025 Meningococcal B Vaccine Aged Out No [...] Free Lifestyle No Theresa Tafoya, DO Insurance [facility] [employer] [facility]
[2025-06-06 13:55] LABS: Hematocrit 45.4 % (42.0-52.0); Hemoglobin 15.4 g/dL (14.1-18.0); Immature Granulocytes % 0.3 %; Mean Corpuscular HGB Conc 33.9 g/dL (31.8-35.4); Mean Corpuscular Hemoglobin 29.1 pg (27.0-31.2); Mean Corpuscular Volume 85.8 fl (80-94); Nucleated Red Blood Cells % 0 %; Platelet Count 229 K/mm3 (142-424); Red Blood Count 5.29 M/mm3 (4.60-6.20); Red Cell Distribution Width-SD 37.9 fL; White Blood Count 9.9 K/mm3 (4.8-10.8)
[2025-06-06 14:00] LABS: Hemoglobin A1C 11.9 % (4.0-6.0)
[2025-06-06 14:09] LABS: Albumin Level 3.8 g/dl (3.5-5.0); Chloride 104 mmol/L (98-107); Sodium 136 mmol/L (136-145)
[2025-06-06 14:10] LABS: Potassium 3.8 mmoL/L (3.5-5.1)
[2025-06-06 14:12] LABS: Alanine Aminotransferase 13 U/L (12-78); Alkaline Phosphatase 79 U/L (38-126); Anion Gap 8.8 mEq/L (5-15); Aspartate Amino Transferase 20 U/L (17-59); Bilirubin,Direct 0.1 mg/dl (0.0-0.4); Bilirubin,Indirect 0.6 mg/dL (0.0-0.9); Bilirubin,Total 0.7 mg/dl (0.2-1.3); Bilirubin,Unconjugated 0.6 mg/dL (0.0-1.1); Blood Urea Nitrogen 8 mg/dl (9-20); Carbon Dioxide 27 mmol/L (22.0-30.0); Cholesterol 172 mg/dl (140-200); Creatinine,Serum 0.60 mg/dl (0.66-1.25); Estimated Glomerular Filt Rate 143 ml/min (>60); GFR (African American) 173 ML/MIN (>60); Glucose 229 mg/dl (74-100); Total Protein,Serum 6.3 g/dl (6.3-8.2); Triglycerides 161 mg/dl (30-150)
[2025-06-06 14:13] LABS: Calcium 8.9 mg/dl (8.4-10.2); HDL Cholesterol 29 mg/dl (40-60); Magnesium 1.4 mg/dl (1.6-2.3)
[2025-06-06 14:28] LABS: Free T4 (Free Thyroxine) 1.37 ng/dl (0.78-2.19)
[2025-06-06 14:44] LABS: Thyroid Stimulating Hormone 3.42 uIU/mL (0.465-4.68)
== END 2025-06-06 23:59 | disposition home or self-care (01) ==
LOC: LAB 13:23
PROVIDERS: PCP Family Medicine; Visit Provider Physician Assistant
DX: I25.10 Atherosclerotic heart disease of native coronary artery without angina pectoris (principal); I10 Essential (primary) hypertension; E11.9 Type 2 diabetes mellitus without complications; E78.5 Hyperlipidemia, unspecified; R00.0 Tachycardia, unspecified; Z95.1 Presence of aortocoronary bypass graft
CPT/HCPCS: 36415; 80048; 80061; 80076; 83036; 83735; 84439; 84443; 85025